=== PATIENT | female | born 1940 | race Caucasian/White ===

== ENCOUNTER 2017-03-24 23:36 | Observation (INO) | payer OTHER ==
--- NOTE | 2017-03-25 00:10 | PDOC ---
History of Present Illness - History of Present Illness Initial Comments: 03/25/17 01:06 The patient is a 76 year old female, with a significant past medical history of htn, diabetes, stents x2, and hepatitis C (Harvoni), who presents to the emergency department with dizziness, vomiting, diarrhea, chills and a BGM of 48 since 9PM today. As per the patients family, they gave the patient food and juice after recording her BGM to be 48 and a BP of 128/60. The patient, however , reports she has continued to feel dizzy. She states that when she closes her eyes she feels the bed moving, denies room spinning. The patient reports 2 episodes of emesis, nonbloody, and one episode of diarrhea, nonbloody, just prior to her ED arrival. She denies abdominal pain. She denies chest pain, shortness of breath, headache. She denies fever and constipation. She denies dysuria, frequency, urgency and hematuria. Allergies: NKDA PCP - Dr. Bridgette Farias <Shazia Clemente - Last Filed: 03/25/17 01:06> - General History Source: Patient Exam Limitations: No Limitations <Genesis Torres - Last Filed: 03/25/17 03:54> - General Chief Complaint: Blood Sugar Problem Stated Complaint: BP LOW/VOMITING Time Seen by Provider: 03/24/17 23:58 Past History <Shazia Clemente - Last Filed: 03/25/17 01:06> - Past Medical History Anemia: Yes Asthma: Yes Cancer: No Cardiac Disorders: Yes (2 cardiac stents) CVA: No COPD: No CHF: No Diabetes: Yes GI Disorders: Yes (GASTRITIS) Disorders: No HTN: Yes Hypercholesterolemia: Yes Liver Disease: Yes (hepatitis c) Suicide Attempt (Hx): No Seizures: No Thyroid Disease: Yes (HYPERTHYROIDISM-LOBE NODULE) - Surgical History Abdominal Surgery: No Appendectomy: Yes (COLONOSCOPY) Cardiac Surgery: Yes (2 stents) Cholecystectomy: No Lung Surgery: Yes (bx sarcoidosis) Neurologic Surgery: No Orthopedic Surgery: No - Immunization History Immunization Up to Date: Yes - Psycho/Social/Smoking Cessation Hx Anxiety: No Suicidal Ideation: No Smoking Status: No Smoking History: Never smoked Have you smoked in the past 12 months: No Number of Cigarettes Smoked Daily: 0 Hx Alcohol Use: No Drug/Substance Use Hx: No Substance Use Type: None Hx Substance Use Treatment: No <Genesis Torres - Last Filed: 03/25/17 03:54> - Past Medical History Allergies/Adverse Reactions: Allergies Allergy/AdvReac Type Severity Reaction Status Date / Time Penicillins Allergy Mild Difficulty Verified 03/24/17 23:55 Breathing Home Medications: Ambulatory Orders Amlodipine Bes/Olmesartan Med [Margarita 10-40 mg Tablet] 1 each PO DAILY 04/14/14 Aspirin [ASA -] 81 mg PO ASDIR 04/14/14 Carvedilol Phosphate [Coreg Cr] 80 mg PO DAILY 04/14/14 Clopidogrel Bisulfate [Plavix -] 75 mg PO ASDIR 04/14/14 Ezetimibe [Zetia] 10 mg PO DAILY 04/14/14 Furosemide [Lasix -] 40 mg PO DAILY 04/14/14 Hydralazine HCl 50 mg PO TID 04/14/14 Ibandronate Sodium [Boniva (Monthly)] 150 mg PO Q30D 04/14/14 Insulin Glargine,Hum.rec.anlog [Lantus Solostar PEN -] 50 units SQ DAILY Multivitamins [Multivit ([facility] Formulary)] 1 tab PO DAILY 04/14/14 Pitavastatin Calcium [Livalo] 2 mg PO DAILY 04/14/14 Insulin Regular, Human [Humulin R -] 5 units SQ AC 06/06/14 Acetaminophen W/ Codeine #3 [Tylenol # 3 -] 1 combo PO Q4H PRN #14 tablet MDD 4 02/15/16 Dexlansoprazole [Dexilant -] 60 mg PO DAILY 02/15/16 Icosapent Ethyl [Vascepa] 1 gm PO BID 02/15/16 Ranolazine [Ranexa -] 500 mg PO BID 02/15/16 Albuterol Sulfate [Proair Respiclick] 90 mcg IH PRN PRN 07/05/16 Cholecalciferol (Vitamin D3) [Vitamin D3 -] 1,000 unit PO DAILY 07/05/16 Folic Acid 1 mg PO DAILY 07/05/16 Nasonex 50 mcg IN DAILY 07/05/16 Vitamin B Complex 1 each PO DAILY 07/05/16 Hydrocodone/Acetaminophen [Hydrocodon-Acetaminoph 7.5-325] 1 each PO Q6H #40 tablet MDD 4 07/06/16 Review of Systems - Review of Systems Able to Perform ROS?: Yes Comments:: 03/25/17 01:06 CONSTITUTIONAL: (+) chills, Absent: fever, no fatigue EYES: Absent: visual changes ENT: Absent: ear pain, no sore throat CARDIOVASCULAR: Absent: chest pain, no palpitations RESPIRATORY: Absent: cough, no SOB GASTROINTESTINAL: (+) nausea, vomiting, diarrhea. Absent: abdominal pain, no constipation, GENITOURINARY: Absent: dysuria, no frequency, no hematuria MUSCULOSKELETAL: Absent: back pain, no arthralgia, no myalgia SKIN: Absent: rash NEURO: (+) dizziness. Absent: headache <Shazia Clemente - Last Filed: 03/25/17 01:06> *Physical Exam - Vital Signs Last Vital Signs Temp Pulse Resp BP Pulse Ox 97 F L 65 18 142/43 99 03/24/17 23:53 03/24/17 23:53 03/24/17 23:53 03/24/17 23:53 03/24/17 23:53 - Physical Exam Comments: 03/25/17 01:08 GENERAL: The patient is in no acute distress. HEAD: Normal with no signs of trauma. EYES: PERRLA, EOMI, sclera anicteric, conjunctiva clear. ENT: Ears normal, nares patent, oropharynx clear without exudates. Moist mucous membranes. NECK: Normal range of motion, supple without lymphadenopathy, JVD, or masses. LUNGS: Breath sounds equal, clear to auscultation bilaterally. No wheezes, and no crackles. HEART:Regular rate and rhythm, normal S1 and S2 without murmur, rub or gallop. ABDOMEN: Soft, nontender, normoactive bowel sounds. No guarding, no rebound. No masses palpable. EXTREMITIES: Normal range of motion, no edema. No clubbing or cyanosis. No erythema, or tenderness. NEUROLOGICAL: Cranial nerves II through XII grossly intact. Normal speech. No focal neurological deficits. MUSCULOSKELETAL: Back non-tender to palpation, no CVA tenderness SKIN: Warm, Dry, normal turgor, no rashes or lesions noted. <Shazia Clemente - Last Filed: 03/25/17 01:06> - Vital Signs Last Vital Signs Temp Pulse Resp BP Pulse Ox 97 F L 65 18 142/43 99 03/24/17 23:53 03/24/17 23:53 03/24/17 23:53 03/24/17 23:53 03/24/17 23:53 <Genesis Torres - Last Filed: 03/25/17 03:54> Heart Score/ECG Review #1 ECG reviewed & interpreted by me at: 03:01 03/25/17 03:01 Twelve-lead EKG was performed and reviewed by me. There is normal sinus rhythm with a normal rate of 70 bpm. The axis is normal. The intervals are normal. There are no ST or T wave abnormalities. <Genesis Torres - Last Filed: 03/25/17 03:54> ED Treatment Course - LABORATORY CBC & Chemistry Diagram: 03/25/17 00:55 03/25/17 00:55 <Shazia Clemente - Last Filed: 03/25/17 01:06> - LABORATORY CBC & Chemistry Diagram: 03/25/17 00:55 03/25/17 00:55 <Genesis Torres - Last Filed: 03/25/17 03:54> Medical Decision Making - Medical Decision Making 03/25/17 00:10 A portion of this note was documented by scribe services under my direction. I have reviewed the details of the note, within reason, and agree with the documentation with the following case summary and management plan written by me. Nursing documentation reviewed and incorporated into medical decision making 76 yo F h/o HTN, HLD, CAD Pt presents to the ER with a complaint of dizziness No chest pain When symptoms began pt blood glucose was 46 Pt had persistent symptoms BP 126/86 03/25/17 02:17 Laboratory Tests 10/29/15 03/25/17 03/25/17 06:00 00:55 00:55 WBC 6.6 6.5 Hgb 10.2 L 10.4 L Hct 32.0 L 31.9 L Plt Count 257 250 Sodium 129 L Potassium 4.7 Chloride 94 L BUN 33 H Creatine Kinase Troponin I Urine Ketones Urine Blood Ur Leukocyte Esterase Acetone, Qual Negative L 03/25/17 03/25/17 00:55 01:52 WBC Hgb Hct Plt Count Sodium Potassium Chloride BUN Creatine Kinase 117 Troponin I < 0.02 Urine Ketones Negative Urine Blood Negative Ur Leukocyte Esterase Negative Acetone, Qual Head CT Supervisor [place] Department: ([email or web address]) Begin of Report Content Referring Physician: Genesis Torres Patient Name: Karina Murphy This is a preliminary report by imaging division order analyst Exam: Noncontrast CT head Images: 141 Clinical indication: Dizziness. Reformatted coronal and sagittal images were provided. Findings: Multiple axial images were obtained of the brain without contrast. There is no mass-effect, midline shift or hemorrhage. There is no intra-axial or extra-axial fluid collection. Mild atrophic involutional changes are noted. The visualized portions of the paranasal sinuses are clear. The middle ear cavities and mastoids are clear. Impression: No mass effect or intracranial hemorrhage. 03/25/17 03:[address] Farias He states patient should be admitted to Dr Murphy Will place on Med Surg Clinical Impression: dizziness <Genesis Torres - Last Filed: 03/25/17 03:54> *DC/Admit/Observation/Transfer - Attestations Scribe Attestion: 03/25/17 01:08 Documentation prepared by Shazia Clemente, acting as medical apparatus model maker for Genesis Torres MD <Shazia Clemente - Last Filed: 03/25/17 01:06> - Discharge Dispostion Admit: Yes <Genesis Torres - Last Filed: 03/25/17 03:54> Diagnosis at time of Disposition: Dizziness, Weakness, Hyponatremia - Discharge Dispostion Condition at time of disposition: Stable
[2017-03-25] MEDS ORDERED: ONDANSETRON 4 MG/2 ML VIAL IVPUSH ONE (00:48)
[2017-03-25] MEDS ORDERED: SODIUM CHLORIDE 1,000 ML IV STA (00:48)
[2017-03-25 01:03] LABS: BASOPHIL 0.9 % (0-2.0); EOSINOPHIL 0.2 % (0-4.5); MCH 25.6 pg (25.7-33.7); MCHC 32.5 g/dl (32.0-36.0); MEAN CELL VOLUME 78.7 fl (80-96); MEAN PLT VOLUME 7.1 fl (7.5-11.1); NEUTROPHILS 63.9 % (42.8-82.8); PLATELET COUNT 250 K/MM3 (134-434); RDW 14.3 % (11.6-15.6); WHITE BLOOD COUNT 6.5 K/mm3 (4.0-10.0)
[2017-03-25 01:26] LABS: ALBUMIN 3.8 g/dl (3.4-5.0); ALK PHOS 47 U/L (45-117); ANION GAP 8 (8-16); BILIRUBIN,TOTAL 0.2 mg/dL (0.2-1.0); CALCIUM 8.8 mg/dL (8.5-10.1); CO2 27 mmol/L (21-32); CREATININE 1.2 mg/dL (0.55-1.02); GLUCOSE,RANDOM 216 mg/dL (74-106); SGOT/AST 22 U/L (15-37); SGPT/ALT 28 U/L (12-78); TOT PROT 7.3 g/dl (6.4-8.2)
[2017-03-25 01:30] LABS: TROPONIN I < 0.02 ng/ml (0.00-0.05)
[2017-03-25 01:34] LABS: ACETONE SERUM NEGATIVE (NEGATIVE)
[2017-03-25] MEDS ORDERED: ONDANSETRON 4 MG/2 ML VIAL ONE (01:57)
[2017-03-25 02:02] LABS: URINE APPEARANCE CLEAR; URINE BILIRUBIN NEGATIVE (NEGATIVE); URINE BLOOD NEGATIVE (NEGATIVE); URINE COLOR YELLOW; URINE GLUCOSE (UA) NEGATIVE (NEGATIVE); URINE KETONE NEGATIVE (NEGATIVE); URINE LEUK ESTERASE NEGATIVE (NEGATIVE); URINE NITRITE NEGATIVE (NEGATIVE); URINE PROTEIN NEGATIVE (NEGATIVE); URINE UROBILINOGEN NEGATIVE mg/dL (0.2-1.0)
[2017-03-25] MEDS ORDERED: CARVEDILOL PHOSPHATE 80 MG PO SCH (10:00)
[2017-03-25] MEDS ORDERED: RANOLAZINE E.R. 1,000 MG TABLET (FP) PO SCH (10:00)
[2017-03-25] MEDS ORDERED: PATIENT'S OWN MEDICATION (NON-FORMULARY) (Dexlansoprazole [Dexilant] 60 MG) PO SCH (10:00)
[2017-03-25] MEDS ORDERED: PATIENT'S OWN MEDICATION (NON-FORMULARY) (Icosapent Ethyl [Vascepa] 1 GM) PO SCH (10:00)
[2017-03-25] MEDS: hydrALAZINE HCL 50 MG TABLET (FP) PO SCH (10:53)
[2017-03-25] MEDS: FOLIC ACID 1 MG TABLET (FP) PO SCH (10:53)
[2017-03-25] MEDS: VALSARTAN 80 MG TABLET (UD) PO SCH (10:53)
[2017-03-25] MEDS: PANTOPRAZOLE 40 MG TABLET (FP) PO SCH (10:54)
[2017-03-25] MEDS: FUROSEMIDE 40 MG TABLET (FP) PO SCH (10:54)
[2017-03-25] MEDS: CLOPIDOGREL BISULFATE 75 MG TABLET (FP) PO SCH (10:54)
[2017-03-25] MEDS: amLODIPine BESYLATE 10 MG TABLET (FP) PO SCH (10:54)
[2017-03-25] MEDS: CARVEDILOL PHOSPHATE CR 40 MG CAPSULE (FP) PO SCH (10:56)
[2017-03-25] MEDS: EZETIMIBE 10 MG TABLET (FP) PO SCH (10:57)
[2017-03-25] MEDS: INSULIN SLIDING SCALE (NOVOLOG) 1 VIAL SQ SCH ×2 (11:32→16:54)
[2017-03-25] MEDS: ATORVASTATIN CA 10 MG TABLET (FP) PO SCH (11:34)
[2017-03-25 11:53] VITALS: BMI 33.5
[2017-03-25] MEDS ORDERED: SIMETHICONE 80 MG TAB.CHEW (FP) PO PRN (12:48)
--- NOTE | 2017-03-25 13:30 | EKG ---
Test Reason : Blood Pressure : / mmHG Vent. Rate : 070 BPM Atrial Rate : 070 BPM P-R Int : 152 ms QRS Dur : 082 ms QT Int : 440 ms P-R-T Axes : 050 005 034 degrees QTc Int : 475 ms POOR DATA QUALITY, INTERPRETATION MAY BE ADVERSELY AFFECTED NORMAL SINUS RHYTHM NORMAL ECG WHEN COMPARED WITH ECG OF 29-OCT-2015 00:14, NO SIGNIFICANT CHANGE WAS FOUND Confirmed by CHRISTINA MACHADO MD ([id number]) on 03/25/2017 1:30:20 PM Referred By: Confirmed By:CHRISTINA MACHADO MD
[2017-03-25 13:44] LABS: ALBUMIN 3.7 g/dl (3.4-5.0); ANION GAP 9 (8-16); CALCIUM 9.2 mg/dL (8.5-10.1); CO2 26 mmol/L (21-32); CREATININE 1.1 mg/dL (0.55-1.02); GLUCOSE,RANDOM 207 mg/dL (74-106); SGOT/AST 20 U/L (15-37); SGPT/ALT 28 U/L (12-78)
[2017-03-25 13:48] LABS: ALK PHOS 36 U/L (45-117); BILIRUBIN,TOTAL 0.4 mg/dL (0.2-1.0); TOT PROT 7.3 g/dl (6.4-8.2); TROPONIN I < 0.02 ng/ml (0.00-0.05)
--- NOTE | 2017-03-25 15:02 | CON.CARD ---
Consult Consult Specialty:: Cardiology - History of Present Illness Chief Complaint: Low blood sugar. dizziness History of Present Illness: This is a 76 year old female with a PMH of HTN, DM, known CAD with 2 past stents (about 20 years ago and 5 yearsz ago), and Hep C. She presented to the [facility] ED with hypoglycemia (BGL 48), dizziness, nausea, and vomiting. No chest pain, SOB, or palpitations. She had a recent cardiac evaluation with Dr. Cam Dinh including a stress test, echocardiogram, and carotid Doppler exam, but does not know the results. Seen in the ED and is comfortable and hemodynamically stable. EKG revealed NSR with no acute changes. - Past Medical History Cardio/Vascular: Yes: CAD, HTN Pulmonary: Yes: Other (Sarcoidosis) Hepatobiliary: Yes: Hepatitis C Endocrine: Yes: Diabetes Mellitus - Alcohol/Substance Use Hx Alcohol Use: No - Smoking History Smoking history: Never smoked Have you smoked in the past 12 months: No Aproximately how many cigarettes per day: 0 - Social History ADL: Independent History of Recent Travel: No Home Medications - Allergies Allergies/Adverse Reactions: Allergies Allergy/AdvReac Type Severity Reaction Status Date / Time Penicillins Allergy Mild Difficulty Verified 03/25/17 04:18 Breathing - Home Medications Home Medications: Ambulatory Orders Amlodipine Bes/Olmesartan Med [Margarita 10-40 mg Tablet] 1 each PO DAILY 03/25/17 Carvedilol Phosphate [Coreg Cr -] 80 mg PO DAILY 03/25/17 Cholecalciferol (Vitamin D3) [Vitamin D3 -] 1,000 unit PO DAILY 03/25/17 Clopidogrel Bisulfate [Plavix -] 75 mg PO DAILY 03/25/17 Dexlansoprazole [Dexilant] 60 mg PO DAILY 03/25/17 Ezetimibe [Zetia] 10 mg PO DAILY 03/25/17 Folic Acid 1 mg PO DAILY 03/25/17 Furosemide [Lasix] 40 mg PO DAILY 03/25/17 Hydralazine HCl 50 mg PO TID 03/25/17 Ibandronate Sodium [Boniva] 150 mg PO MONTHLY 03/25/17 Icosapent Ethyl [Vascepa] 2 tab PO BID 03/25/17 Insulin Glargine,Hum.rec.anlog [Lantus Solostar PEN (NF)] 55 units SQ ACBK 03/25 Insulin Regular, Human [Humulin R U-500 Kwikpen] 3 - 5 unit SQ TID 03/25/17 Mometasone Furoate 1 - 2 sprays NS DAILY 03/25/17 Multivitamins [Tab-A-Vit -] 1 tab PO DAILY 03/25/17 Pitavastatin Calcium [Livalo] 2 mg PO DAILY 03/25/17 Ranolazine [Ranexa] 1,000 mg PO Q12H 03/25/17 Vitamin B Complex 1 each PO DAILY 03/25/17 Family Disease History - Family Disease History Family Disease History: Heart Disease: Father Review of Systems Unable to obtain ROS, reason: As per HPI Vital Signs: Vital Signs Temperature 98.3 F 03/25/17 13:36 Pulse Rate 94 H 03/25/17 13:36 Respiratory Rate 20 03/25/17 13:36 Blood Pressure 126/49 03/25/17 13:36 O2 Sat by Pulse Oximetry (%) 98 03/25/17 11:00 Constitutional: Yes: Other (Well appearing and in no distress No JVD Lungs CTA Cor RRR NL S1S2 no MRHG Ab Soft Ex no edema Neuro Grossly nonfocal) - Other Data Labs, Other Data: CBC, BMP 03/25/17 13:14 Troponin, BNP 03/25/17 13:14 Troponin I < 0.02 Troponin, BNP 03/25/17 13:14 Troponin I < 0.02 Assessment/Plan [facility] *LIVE* Amlodipine Bes/Olmesartan Med [Margarita 10-40 mg Tablet] 1 each PO DAILY 04/14/14 Aspirin [ASA -] 81 mg PO ASDIR 04/14/14 Carvedilol Phosphate [Coreg Cr] 80 mg PO DAILY 04/14/14 Clopidogrel Bisulfate [Plavix -] 75 mg PO ASDIR 04/14/14 Ezetimibe [Zetia] 10 mg PO DAILY 04/14/14 Furosemide [Lasix -] 40 mg PO DAILY 04/14/14 Hydralazine HCl 50 mg PO TID 04/14/14 Ibandronate Sodium [Boniva (Monthly)] 150 mg PO Q30D 04/14/14 Insulin Glargine,Hum.rec.anlog [Lantus Solostar PEN -] 50 units SQ DAILY Multivitamins [Multivit ([facility] Formulary)] 1 tab PO DAILY 04/14/14 Pitavastatin Calcium [Livalo] 2 mg PO DAILY 04/14/14 Insulin Regular, Human [Humulin R -] 5 units SQ AC 06/06/14 Acetaminophen W/ Codeine #3 [Tylenol # 3 -] 1 combo PO Q4H PRN #14 tablet MDD 4 02/15/16 Dexlansoprazole [Dexilant -] 60 mg PO DAILY 02/15/16 Icosapent Ethyl [Vascepa] 1 gm PO BID 02/15/16 Ranolazine [Ranexa -] 500 mg PO BID 02/15/16 Albuterol Sulfate [Proair Respiclick] 90 mcg IH PRN PRN 07/05/16 Cholecalciferol (Vitamin D3) [Vitamin D3 -] 1,000 unit PO DAILY 07/05/16 Folic Acid 1 mg PO DAILY 07/05/16 Nasonex 50 mcg IN DAILY 07/05/16 Vitamin B Complex 1 each PO DAILY 07/05/16 Hydrocodone/Acetaminophen [Hydrocodon-Acetaminoph 7.5-325] 1 each PO Q6H #40 tablet MDD 4 07/06/16 Hypoglycemia associated with dizziness, nausea, and vomiting which has resolved. Cardiac Known CAD with past coronary stents. Continue ASA 81 mg daily Also is on Plavix 75 mg daily but I do not see the need for DAPT since her last coronany stent was 5 years ago Continue Ranolazoine 500 mg PO BID Continue current antihypertensive regimen including furosemide 40 mg daily Recent echo/nuk/carotid (within a month) from Dr. Cam Vaughan - try to obtain the results on Sunday. Will follow with you.
[2017-03-25 17:48] LABS: TROPONIN I < 0.02 ng/ml (0.00-0.05)
--- NOTE | 2017-03-25 21:19 | HP ---
Admitting History and Physical - Primary Care Physician PCP: Bridgette Farias I - Admission Chief Complaint: Dizziness History of Present Illness: Ms. Murphy is a very pleasant, 76 yo english speaking female, who presented to [facility] ER with chief complaint of dizziness that started yesterday evening along with vomiting x 2,diarrhea x1 and chills. She is accompanied by her daughter who explains that she was slightly confused during the episode, her daughter checked her blood sugar at the time which was 48, she was given orange juice which brought her blood sugar up to 140. Patent's daughter explains that she has had prior episodes of dizziness but nothing this severe. She says that dizziness is intermittent, is better at the moment and does not feel like the room is spinning. PMH: HTN, hyperlipidemia, diabetes mellitus type 2, cardiac stents x 2 and hepatitis C that was treated with Harvoni 2 years ago, with 100% cure. She denies chest pain, shortness of breath, headache. She denies fever and constipation. She denies dysuria, frequency, urgency and hematuria. History Source: Family Member - Past Medical History Cardiovascular: Yes: CAD, HTN Pulmonary: Yes: Other (Sarcoidosis) Hepatobiliary: Yes: Hepatitis C Endocrine: Yes: Diabetes Mellitus - Smoking History Smoking history: Never smoked Have you smoked in the past 12 months: No Aproximately how many cigarettes per day: 0 - Alcohol/Substance Use Hx Alcohol Use: No - Social History ADL: Independent History of Recent Travel: No Home Medications - Allergies Allergies/Adverse Reactions: Allergies Allergy/AdvReac Type Severity Reaction Status Date / Time Penicillins Allergy Mild Difficulty Verified 03/25/17 04:18 Breathing - Home Medications Home Medications: Ambulatory Orders Amlodipine Bes/Olmesartan Med [Margarita 10-40 mg Tablet] 1 each PO DAILY 03/25/17 Carvedilol Phosphate [Coreg Cr -] 80 mg PO DAILY 03/25/17 Cholecalciferol (Vitamin D3) [Vitamin D3 -] 1,000 unit PO DAILY 03/25/17 Clopidogrel Bisulfate [Plavix -] 75 mg PO DAILY 03/25/17 Dexlansoprazole [Dexilant] 60 mg PO DAILY 03/25/17 Ezetimibe [Zetia] 10 mg PO DAILY 03/25/17 Folic Acid 1 mg PO DAILY 03/25/17 Furosemide [Lasix] 40 mg PO DAILY 03/25/17 Hydralazine HCl 50 mg PO TID 03/25/17 Ibandronate Sodium [Boniva] 150 mg PO MONTHLY 03/25/17 Icosapent Ethyl [Vascepa] 2 tab PO BID 03/25/17 Insulin Glargine,Hum.rec.anlog [Lantus Solostar PEN (NF)] 55 units SQ ACBK 03/25 Insulin Regular, Human [Humulin R U-500 Kwikpen] 3 - 5 unit SQ TID 03/25/17 Mometasone Furoate 1 - 2 sprays NS DAILY 03/25/17 Multivitamins [Tab-A-Vit -] 1 tab PO DAILY 03/25/17 Pitavastatin Calcium [Livalo] 2 mg PO DAILY 03/25/17 Ranolazine [Ranexa] 1,000 mg PO Q12H 03/25/17 Vitamin B Complex 1 each PO DAILY 03/25/17 Family Disease History - Family Disease History Family Disease History: Heart Disease: Father Review of Systems - Review of Systems Constitutional: reports: Malaise Eyes: reports: No Symptoms HENT: reports: No Symptoms Neck: reports: No Symptoms Cardiovascular: reports: No Symptoms Respiratory: reports: No Symptoms Gastrointestinal: reports: Indigestion Genitourinary: reports: No Symptoms Breasts: reports: No Symptoms Reported Musculoskeletal: reports: No Symptoms Integumentary: reports: No Symptoms Neurological: reports: Dizziness Endocrine: reports: No Symptoms Hematology/Lymphatic: reports: No Symptoms Physical Examination Vital Signs: Vital Signs Temperature 98.0 F 03/25/17 16:30 Pulse Rate 78 03/25/17 16:30 Respiratory Rate 18 03/25/17 16:30 Blood Pressure 145/65 03/25/17 16:30 O2 Sat by Pulse Oximetry (%) 98 03/25/17 11:00 Constitutional: Yes: Well Nourished, No Distress, Calm Cardiovascular: Yes: Regular Rate and Rhythm, Murmur (LSB grade II) Respiratory: Yes: Regular Gastrointestinal: Yes: Hyperactive Bowel Sounds Breast(s): Yes: WNL Musculoskeletal: Yes: WNL Extremities: Yes: WNL Edema: No Peripheral Pulses WNL: Yes Neurological: Yes: WNL Psychiatric: Yes: Alert Labs: CBC, BMP 03/25/17 13:14 Imaging - Results Cat Scan: Report Reviewed Problem List - Problems (1) Dizziness Assessment/Plan: -CT head negative -no nystagmus -neurology and cardiology consult Code(s): R42 - DIZZINESS AND GIDDINESS (2) Hyponatremia Assessment/Plan: -cause unknown at this time -could be the cause of dizziness Code(s): E87.1 - HYPO-OSMOLALITY AND HYPONATREMIA (3) Weakness Assessment/Plan: likely secondary to dehydration Code(s): R53.1 - WEAKNESS (4) Diabetes Code(s): E11.9 - TYPE 2 DIABETES MELLITUS WITHOUT COMPLICATIONS Qualifiers: Diabetes mellitus type: type 2 Assessment/Plan -observation -neurology and cardiology consult. -renal consult -repeat labs in AM
[2017-03-25] MEDS: OMEGA-3 ACID ETHYL ESTERS (FATTY-ACIDS) 1 GM CAPSULE (FP) PO SCH (21:54)
[2017-03-25] MEDS: RANOLAZINE E.R. 1,000 MG TABLET (FP) PO SCH (21:54)
[2017-03-26] MEDS: INSULIN SLIDING SCALE (NOVOLOG) 1 VIAL SQ SCH ×3 (06:16→17:22)
[2017-03-26] MEDS: INSULIN DETEMIR 100 UNITS/ML MDV SQ SCH (06:16)
[2017-03-26 07:06] LABS: BASOPHIL 0.7 % (0-2.0); EOSINOPHIL 0.5 % (0-4.5); MCH 25.9 pg (25.7-33.7); MCHC 32.8 g/dl (32.0-36.0); MEAN CELL VOLUME 78.9 fl (80-96); NEUTROPHILS 60.1 % (42.8-82.8); PLATELET COUNT 272 K/MM3 (134-434); RDW 13.8 % (11.6-15.6); WHITE BLOOD COUNT 6.1 K/mm3 (4.0-10.0)
[2017-03-26 07:36] LABS: ALBUMIN 3.6 g/dl (3.4-5.0); ANION GAP 6 (8-16); CALCIUM 9.2 mg/dL (8.5-10.1); CO2 28 mmol/L (21-32); CREATININE 1.1 mg/dL (0.55-1.02); GLUCOSE,RANDOM 111 mg/dL (74-106); SGOT/AST 19 U/L (15-37); SGPT/ALT 26 U/L (12-78)
[2017-03-26 07:40] LABS: ALK PHOS 36 U/L (45-117); BILIRUBIN,TOTAL 0.5 mg/dL (0.2-1.0); FERRITIN 41.545 ng/ml (6.9-282.5); TOT PROT 7.3 g/dl (6.4-8.2)
--- NOTE | 2017-03-26 08:28 | PN ---
Progress Note, Physician History of Present Illness: NO COMPLAINTS THIS AM - Current Medication List Current Medications: Active Medications Amlodipine Besylate (Norvasc -) 10 mg PO DAILY [facility] Last Admin: 03/25/17 10:54 Dose: 10 mg Atorvastatin Calcium (Lipitor -) 10 mg PO DAILY [facility] Last Admin: 03/25/17 11:34 Dose: 10 mg Carvedilol (Coreg Cr -) 80 mg PO DAILY [facility] Last Admin: 03/25/17 10:56 Dose: 80 mg Clopidogrel Bisulfate (Plavix -) 75 mg PO DAILY [facility] Last Admin: 03/25/17 10:54 Dose: 75 mg Ezetimibe (Zetia -) 10 mg PO DAILY [facility] Last Admin: 03/25/17 10:57 Dose: 10 mg Folic Acid (Folic Acid -) 1 mg PO DAILY [facility] Last Admin: 03/25/17 10:53 Dose: 1 mg Furosemide (Lasix -) 40 mg PO DAILY [facility] Last Admin: 03/25/17 10:54 Dose: 40 mg Hydralazine HCl (Apresoline -) 50 mg PO DAILY [facility] Last Admin: 03/25/17 10:53 Dose: 50 mg Insulin Aspart (Novolog Vial Sliding Scale -) 1 vial SQ TIDAC [facility] PRN Reason: Protocol Last Admin: 03/26/17 06:16 Dose: Not Given Insulin Detemir (Levemir Vial) 55 units SQ AM [facility] Last Admin: 03/26/17 06:16 Dose: 55 units [id number] Ethyl Esters (Lovaza -) 2 gm PO BID [facility] Last Admin: 03/25/17 21:54 Dose: Not Given Pantoprazole Sodium (Protonix -) 40 mg PO DAILY [facility] Last Admin: 03/25/17 10:54 Dose: 40 mg Ranolazine (Ranexa -) 1,000 mg PO BID [facility] Last Admin: 03/25/17 21:54 Dose: 1,000 mg Simethicone (Mylicon -) 80 mg PO QID PRN PRN Reason: GAS Last Admin: 03/25/17 15:31 Dose: 80 mg Valsartan (Diovan -) 80 mg PO DAILY [facility] Last Admin: 03/25/17 10:53 Dose: 80 mg - Objective Vital Signs: Vital Signs Temperature 97.8 F 03/26/17 02:21 Pulse Rate 77 03/26/17 06:00 Respiratory Rate 20 03/26/17 06:00 Blood Pressure 132/54 03/26/17 06:00 O2 Sat by Pulse Oximetry (%) 98 03/25/17 11:00 Cardiovascular: Yes: Regular Rate and Rhythm Respiratory: Yes: Regular, CTA Bilaterally Gastrointestinal: Yes: Normal Bowel Sounds, Soft. No: Tenderness Labs: CBC, BMP 03/26/17 05:35 Assessment/Plan - Problems (1) Dizziness Assessment/Plan: -CT head negative -no nystagmus -neurology and cardiology consult Code(s): R42 - DIZZINESS AND GIDDINESS (2) Hyponatremia Assessment/Plan: -cause unknown at this time -na --outpatient monitoring Code(s): E87.1 - HYPO-OSMOLALITY AND HYPONATREMIA (3) Weakness Assessment/Plan: likely secondary to dehydration resolved-monitor Code(s): R53.1 - WEAKNESS (4) Diabetes no further hypoglycemia bgm insulin Code(s): E11.9 - TYPE 2 DIABETES MELLITUS WITHOUT COMPLICATIONS Qualifiers: Diabetes mellitus type: type 2 (5) htn stable--some flutation monitor on current meds---hydralazine adjusted Assessment/Plan -observation -neurology and cardiology consult -renal consult -repeat labs noted--na
[2017-03-26] MEDS ORDERED: PT OWN MED DRAWER 7, Y5N ONE ×2 (09:28→22:14)
--- NOTE | 2017-03-26 09:53 | PN ---
Progress Note, Physician Chief Complaint: Events noted Cardiology consultation seen by Dr. Cory Loera Mrs. Murphy is a patient of Dr. Cam Dinh Not in distress this AM History of Present Illness: Patient was seen and examined. Awake and alert. Chart was reviewed Office records were obtained and reviewed Denies chest pain. SOB or palpitations. Denies dizziness, nausea or vomiting this am. Patient was seen by Dr. Dinh in the office on February 01, 2017 Nuclear myocardial perfusion imaging (February 2017) revealed small to moderate anterior defect c/w soft tissue attenuation with zone of mild ischemia. LVEF 84 % at rest and 85% post Regadenoson Echocardiography (February 2017) revealed normal LV systolic function, mild AR, mild to moderate MR, mild TR, mild SD and mild pulmonary HTN Carotid Doppler (March 2017) no hemodynamically significant stenosis - Current Medication List Current Medications: Active Medications Amlodipine Besylate (Norvasc -) 10 mg PO DAILY [facility] Last Admin: 03/25/17 10:54 Dose: 10 mg Atorvastatin Calcium (Lipitor -) 10 mg PO DAILY [facility] Last Admin: 03/25/17 11:34 Dose: 10 mg Carvedilol (Coreg Cr -) 80 mg PO DAILY [facility] Last Admin: 03/25/17 10:56 Dose: 80 mg Clopidogrel Bisulfate (Plavix -) 75 mg PO DAILY [facility] Last Admin: 03/25/17 10:54 Dose: 75 mg Ezetimibe (Zetia -) 10 mg PO DAILY [facility] Last Admin: 03/25/17 10:57 Dose: 10 mg Folic Acid (Folic Acid -) 1 mg PO DAILY [facility] Last Admin: 03/25/17 10:53 Dose: 1 mg Furosemide (Lasix -) 40 mg PO DAILY [facility] Last Admin: 03/25/17 10:54 Dose: 40 mg Hydralazine HCl (Apresoline -) 50 mg PO DAILY [facility] Last Admin: 03/25/17 10:53 Dose: 50 mg Insulin Aspart (Novolog Vial Sliding Scale -) 1 vial SQ TIDAC [facility] PRN Reason: Protocol Last Admin: 03/26/17 06:16 Dose: Not Given Insulin Detemir (Levemir Vial) 55 units SQ AM [facility] Last Admin: 03/26/17 06:16 Dose: 55 units [id number] Ethyl Esters (Lovaza -) 2 gm PO BID [facility] Last Admin: 03/25/17 21:54 Dose: Not Given Pantoprazole Sodium (Protonix -) 40 mg PO DAILY [facility] Last Admin: 03/25/17 10:54 Dose: 40 mg Ranolazine (Ranexa -) 1,000 mg PO BID [facility] Last Admin: 03/25/17 21:54 Dose: 1,000 mg Simethicone (Mylicon -) 80 mg PO QID PRN PRN Reason: GAS Last Admin: 03/25/17 15:31 Dose: 80 mg Valsartan (Diovan -) 80 mg PO DAILY [facility] Last Admin: 03/25/17 10:53 Dose: 80 mg - Objective Vital Signs: Vital Signs Temperature 97.8 F 03/26/17 02:21 Pulse Rate 77 03/26/17 06:00 Respiratory Rate 20 03/26/17 06:00 Blood Pressure 132/54 03/26/17 06:00 O2 Sat by Pulse Oximetry (%) 98 03/25/17 11:00 Neck: Yes: Supple Cardiovascular: Yes: Regular Rate and Rhythm, Murmur (Soft SM LSB and apex), S1 , S2 Respiratory: Yes: CTA Bilaterally Gastrointestinal: Yes: Normal Bowel Sounds, Soft. No: Tenderness Edema: No Additional Findings/Remarks: Review of System HEENT: No headache, photophobia, blurring of vision CARD: No chest pain, palpitations, SOB RESP: No cough, sputum production, (-) hemoptysis ABD: (+) nausea, vomiting, denies: diarrhea, abdominal pain, melena, hematemesis MUSC: No joint pains UROL: No urinary symptoms NEURO: No seizure, syncope (+) dizziness Labs: CBC, BMP 03/26/17 05:35 03/26/17 05:35 Laboratory Results - last 24 hr 03/25/17 03/25/17 03/25/17 07:19 11:31 13:14 WBC RBC Hgb Hct MCV MCH MCHC RDW Plt Count MPV Neutrophils % Lymphocytes % Monocytes % Eosinophils % Basophils % Sodium 131 L Potassium 5.4 H Chloride 96 L Carbon Dioxide 26 Anion Gap 9 BUN 23 H D Creatinine 1.1 H Creat Clearance w eGFR 48.16 POC Glucometer 152.74519 141.16742 Random Glucose 207 H Calcium 9.2 Ferritin Total Bilirubin 0.4 D AST 20 ALT 28 Alkaline Phosphatase 36 L D Creatine Kinase 100 Troponin I < 0.02 Total Protein 7.3 Albumin 3.7 03/25/17 03/25/17 03/26/17 16:53 17:00 05:35 WBC RBC Hgb Hct MCV MCH MCHC RDW Plt Count MPV Neutrophils % Lymphocytes % Monocytes % Eosinophils % Basophils % Sodium 133 L Potassium 5.1 Chloride 99 Carbon Dioxide 28 Anion Gap 6 L BUN 22 H Creatinine 1.1 H Creat Clearance w eGFR 48.16 POC Glucometer 164 Random Glucose 111 H D Calcium 9.2 Ferritin 41.545 Total Bilirubin 0.5 D AST 19 ALT 26 Alkaline Phosphatase 36 L Creatine Kinase 91 Troponin I < 0.02 Total Protein 7.3 Albumin 3.6 03/26/17 03/26/17 05:35 05:45 WBC 6.1 RBC 4.33 Hgb 11.2 Hct 34.2 MCV 78.9 L MCH 25.9 MCHC 32.8 RDW 13.8 Plt Count 272 MPV 7.0 L Neutrophils % 60.1 Lymphocytes % 28.2 Monocytes % 10.5 H Eosinophils % 0.5 D Basophils % 0.7 Sodium Potassium Chloride Carbon Dioxide Anion Gap BUN Creatinine Creat Clearance w eGFR POC Glucometer 108 Random Glucose Calcium Ferritin Total Bilirubin AST ALT Alkaline Phosphatase Creatine Kinase Troponin I Total Protein Albumin - ....Imaging Chest X-ray: Report Reviewed (Unremarkable) Problem List - Problems (1) Dizziness Code(s): R42 - DIZZINESS AND GIDDINESS (2) Hyponatremia Code(s): E87.1 - HYPO-OSMOLALITY AND HYPONATREMIA (3) Weakness Code(s): R53.1 - WEAKNESS (4) CAD (coronary artery disease) Code(s): I25.10 - ATHSCL HEART DISEASE OF [place] CORONARY ARTERY W/O ANG PCTRS (5) CKD (chronic kidney disease) Code(s): N18.9 - CHRONIC KIDNEY DISEASE, UNSPECIFIED (6) Diabetes Code(s): E11.9 - TYPE 2 DIABETES MELLITUS WITHOUT COMPLICATIONS Qualifiers: Diabetes mellitus type: type 2 (7) HTN (hypertension) Code(s): I10 - ESSENTIAL (PRIMARY) HYPERTENSION (8) Hyperlipidemia Code(s): E78.5 - HYPERLIPIDEMIA, UNSPECIFIED Assessment/Plan 1. Hypoglycemia associated with symptoms of dizziness, nausea and vomiting 2. History of CAD status post PCI/REEMA (1997 BMS to RCA, 2009 REEMA to LAD), angina pectoris 3. Hypertension 4. Type 2 (Insulin dependent) diabetes mellitus 5. Hypercholesterolemia 6. Diastolic dysfunction with class 0-1 NYHA classification LV failure 7. Mitral valve regurgitation 8. Pulmonary sarcoidosis 9. History of hepatits C 10. CKD 11. DJD 12. Anemia PLAN: 1. Continue Carvedilol and Margarita or equivalent, as tolerated. Monitor electrolytes and renal function 2. Continue Hydralazine 3. Continue Ranexa 4. Statin - currently on Atorvastatin, but patient has been on Livalo. Continue Zetia. 5. Continue ASA +/- Plavix 6. Continue diuretics - PO Lasix 7. Continue Vascepa - but can be given as outpatient. 8. Office records are in the chart for review - continue current medical therapy. Monitor for hypoglycemia and adjust diabetes regimen accordingly. Further plans are to follow Humphrey Ramos MD
[2017-03-26] MEDS: CARVEDILOL PHOSPHATE CR 40 MG CAPSULE (FP) PO SCH (10:06)
[2017-03-26] MEDS: PANTOPRAZOLE 40 MG TABLET (FP) PO SCH (10:07)
[2017-03-26] MEDS: hydrALAZINE HCL 50 MG TABLET (FP) PO SCH (10:07)
[2017-03-26] MEDS: OMEGA-3 ACID ETHYL ESTERS (FATTY-ACIDS) 1 GM CAPSULE (FP) PO SCH ×2 (10:07→22:18)
[2017-03-26] MEDS: RANOLAZINE E.R. 1,000 MG TABLET (FP) PO SCH ×2 (10:07→22:17)
[2017-03-26] MEDS: CLOPIDOGREL BISULFATE 75 MG TABLET (FP) PO SCH (10:08)
[2017-03-26] MEDS: FUROSEMIDE 40 MG TABLET (FP) PO SCH (10:08)
[2017-03-26] MEDS: amLODIPine BESYLATE 10 MG TABLET (FP) PO SCH (10:09)
[2017-03-26] MEDS: VALSARTAN 80 MG TABLET (UD) PO SCH (10:09)
[2017-03-26] MEDS: FOLIC ACID 1 MG TABLET (FP) PO SCH (10:09)
--- NOTE | 2017-03-26 10:58 | CON.NEP ---
Consult Consult Specialty:: Nephrology (Low/Parvez) Referred by:: Dr. Winn Reason for Consultation:: CHRISTIANO/CKD/Hyponatremia/Hyperkalemia - History of Present Illness Chief Complaint: N/V, Hypoglycemia History of Present Illness: This is a 76 year old woman with PMhx of Hepatitis C on Harvoni, CAD, Hypertension, DM on Insulin who presented with the ED with complaints of N/V and Hypoglycemia with Cr of 1.1, K of 5.4 and Na of 129. Pt now reports feeling better and is no longer having nausea, ate breakfast this am. Denies any history of CKD, including kidney stones and recurrent UTI. Pt is on Lasix at home. Pt s/p IVF on admission. - History Source History Provided By: Patient, Family Member Limitations to Obtaining History: Language Barrier - Past Medical History Cardio/Vascular: Yes: CAD, HTN Pulmonary: Yes: Other (Sarcoidosis) Hepatobiliary: Yes: Hepatitis C Endocrine: Yes: Diabetes Mellitus - Alcohol/Substance Use Hx Alcohol Use: No - Smoking History Smoking history: Never smoked Have you smoked in the past 12 months: No Aproximately how many cigarettes per day: 0 - Social History ADL: Independent History of Recent Travel: No Home Medications - Allergies Allergies/Adverse Reactions: Allergies Allergy/AdvReac Type Severity Reaction Status Date / Time Penicillins Allergy Mild Difficulty Verified 03/25/17 04:18 Breathing - Home Medications Home Medications: Ambulatory Orders Amlodipine Bes/Olmesartan Med [Margarita 10-40 mg Tablet] 1 each PO DAILY 03/25/17 Carvedilol Phosphate [Coreg Cr -] 80 mg PO DAILY 03/25/17 Cholecalciferol (Vitamin D3) [Vitamin D3 -] 1,000 unit PO DAILY 03/25/17 Clopidogrel Bisulfate [Plavix -] 75 mg PO DAILY 03/25/17 Dexlansoprazole [Dexilant] 60 mg PO DAILY 03/25/17 Ezetimibe [Zetia] 10 mg PO DAILY 03/25/17 Folic Acid 1 mg PO DAILY 03/25/17 Furosemide [Lasix] 40 mg PO DAILY 03/25/17 Hydralazine HCl 50 mg PO TID 03/25/17 Ibandronate Sodium [Boniva] 150 mg PO MONTHLY 03/25/17 Icosapent Ethyl [Vascepa] 2 tab PO BID 03/25/17 Insulin Glargine,Hum.rec.anlog [Lantus Solostar PEN (NF)] 55 units SQ ACBK 03/25 Insulin Regular, Human [Humulin R U-500 Kwikpen] 3 - 5 unit SQ TID 03/25/17 Mometasone Furoate 1 - 2 sprays NS DAILY 03/25/17 Multivitamins [Tab-A-Vit -] 1 tab PO DAILY 03/25/17 Pitavastatin Calcium [Livalo] 2 mg PO DAILY 03/25/17 Ranolazine [Ranexa] 1,000 mg PO Q12H 03/25/17 Vitamin B Complex 1 each PO DAILY 03/25/17 Family Disease History - Family Disease History Family Disease History: Heart Disease: Father Review of Systems - Review of Systems Constitutional: denies: Chills, Diaphoresis, Fever, Lethargy, Loss of Appetite Eyes: reports: No Symptoms HENT: reports: No Symptoms Neck: reports: No Symptoms Cardiovascular: denies: Chest Pain, Edema, Palpitations, Shortness of Breath Respiratory: denies: Cough, Exercise Intolerance, Hemoptysis, Orthopnea, SOB, SOB on Exertion Gastrointestinal: denies: Abdominal Pain, Constipation, Diarrhea, Dysphagia, Nausea, Vomiting Genitourinary: reports: No Symptoms Musculoskeletal: reports: No Symptoms Integumentary: reports: No Symptoms Neurological: reports: No Symptoms Nephrology Consult - Height Height: 5 ft 3 in - Weight Weight: 189 lb - BMI Body Mass Index (BMI): 33.5 - Lab Results CBC,BMP: CBC, BMP 03/26/17 05:35 03/26/17 05:35 Anion Gap: Anion Gap Anion Gap 6 (8-16) L 03/26/17 05:35 - Imaging Chest X-ray: Report Reviewed - Physical Examination Vital Signs: Vital Signs Temperature 97.8 F 03/26/17 02:21 Pulse Rate 77 03/26/17 06:00 Respiratory Rate 20 03/26/17 06:00 Blood Pressure 132/54 03/26/17 06:00 O2 Sat by Pulse Oximetry (%) 98 03/25/17 11:00 Constitutional: Yes: No Distress, Calm Eyes: Yes: Conjunctiva Clear HENT: Yes: Atraumatic, Normocephalic Neck: Yes: Supple, Trachea Midline Cardiovascular: Yes: Regular Rate and Rhythm, S1, S2. No: Murmur, Rub Respiratory: Yes: Regular, CTA Bilaterally. No: On Nasal O2, Rales, Rhonchi, SOB Gastrointestinal: Yes: Normal Bowel Sounds, Soft, Abdomen, Obese. No: Tenderness, Tenderness, Rebound Renal/: No: Bladder Distention, CVA Tenderness - Left, CVA Tenderness - Right , Duffy Present Edema: Yes Edema: LLE: Trace, RLE: Trace Neurological: Yes: Alert, Oriented, Cran Nerves II-XII Intact Problem List - Problems (1) Hyponatremia Code(s): E87.1 - HYPO-OSMOLALITY AND HYPONATREMIA (2) CHRISTIANO (acute kidney injury) Code(s): N17.9 - ACUTE KIDNEY FAILURE, UNSPECIFIED (3) CAD (coronary artery disease) Code(s): I25.10 - ATHSCL HEART DISEASE OF [place] CORONARY ARTERY W/O ANG PCTRS (4) Diabetes Code(s): E11.9 - TYPE 2 DIABETES MELLITUS WITHOUT COMPLICATIONS Qualifiers: Diabetes mellitus type: type 2 (5) HTN (hypertension) Code(s): I10 - ESSENTIAL (PRIMARY) HYPERTENSION (6) Hypoglycemia Code(s): E16.2 - HYPOGLYCEMIA, UNSPECIFIED Assessment/Plan 76 year old woman with PMhx of Hepatitis C on Harvoni, CAD, Hypertension, DM on Insulin who presented with the ED with complaints of N/V and Hypoglycemia with Cr of 1.1, K of 5.4 and Na of 129. #Hyponatremia Etiology likkely hypovolemic hyponatremia in setting of N/V and diuretics Na is improved no indication for 3% saline Trend Na Q24hrs #Hyperkalemia in setting of CKD and N/V improved today low K diet for now Trend daily on Diovan (? home med) #CKD Stage 3 Cr 1.1 in 2013 Ua w/o protein or sediment Check UPCR Trend BUN/cr daily on ARB and Lasix #Nausea/Vomiting/Hypoglycemia improved now oral diet as tolerated Insulin as per primary #Hypertension continue Diovan/Lasix/Coreg/Hydralazine Goal BP < 140/90 #Hepatitis C continue management as per Primary Thank you Davidson Hannon DO
[2017-03-26] MEDS: EZETIMIBE 10 MG TABLET (FP) PO SCH (16:37)
[2017-03-26] MEDS: ATORVASTATIN CA 10 MG TABLET (FP) PO SCH (16:37)
--- NOTE | 2017-03-26 20:23 | CON.NEURO ---
Consult - History of Present Illness History of Present Illness: 76 yo woman, p/w with chief complaint of dizziness that started yesterday evening along with vomiting x 2,diarrhea x1 and chills. She is accompanied by her daughter who explains that she was slightly confused during the episode, her daughter checked her blood sugar at the time which was 48, she was given orange juice which brought her blood sugar up to 140. Patent's daughter explains that she has had prior episodes of dizziness but nothing this severe. She says that dizziness is intermittent, is better at the moment and does not feel like the room is spinning. feels better today, no RAMIREZ, no associated dysarthria, focal weakness. CT HD to my eye: no acute pathology (dictation incorrect, chxy results) . - Past Medical History Cardio/Vascular: Yes: CAD, HTN Pulmonary: Yes: Other (Sarcoidosis) Hepatobiliary: Yes: Hepatitis C Endocrine: Yes: Diabetes Mellitus - Alcohol/Substance Use Hx Alcohol Use: No - Smoking History Smoking history: Never smoked Have you smoked in the past 12 months: No Aproximately how many cigarettes per day: 0 - Social History ADL: Independent History of Recent Travel: No Home Medications - Allergies Allergies/Adverse Reactions: Allergies Allergy/AdvReac Type Severity Reaction Status Date / Time Penicillins Allergy Mild Difficulty Verified 03/25/17 04:18 Breathing - Home Medications Home Medications: Ambulatory Orders Amlodipine Bes/Olmesartan Med [Margarita 10-40 mg Tablet] 1 each PO DAILY 03/25/17 Carvedilol Phosphate [Coreg Cr -] 80 mg PO DAILY 03/25/17 Cholecalciferol (Vitamin D3) [Vitamin D3 -] 1,000 unit PO DAILY 03/25/17 Clopidogrel Bisulfate [Plavix -] 75 mg PO DAILY 03/25/17 Dexlansoprazole [Dexilant] 60 mg PO DAILY 03/25/17 Ezetimibe [Zetia] 10 mg PO DAILY 03/25/17 Folic Acid 1 mg PO DAILY 03/25/17 Furosemide [Lasix] 40 mg PO DAILY 03/25/17 Hydralazine HCl 50 mg PO TID 03/25/17 Ibandronate Sodium [Boniva] 150 mg PO MONTHLY 03/25/17 Icosapent Ethyl [Vascepa] 2 tab PO BID 03/25/17 Insulin Glargine,Hum.rec.anlog [Lantus Solostar PEN (NF)] 55 units SQ ACBK 03/25 Insulin Regular, Human [Humulin R U-500 Kwikpen] 3 - 5 unit SQ TID 03/25/17 Mometasone Furoate 1 - 2 sprays NS DAILY 03/25/17 Multivitamins [Tab-A-Vit -] 1 tab PO DAILY 03/25/17 Pitavastatin Calcium [Livalo] 2 mg PO DAILY 03/25/17 Ranolazine [Ranexa] 1,000 mg PO Q12H 03/25/17 Vitamin B Complex 1 each PO DAILY 03/25/17 Family Disease History - Family Disease History Family Disease History: Heart Disease: Father Physical Exam-Neuro Vital Signs: Vital Signs Temperature 98.0 F 03/26/17 17:00 Pulse Rate 82 03/26/17 17:00 Respiratory Rate 20 03/26/17 17:00 Blood Pressure 113/57 03/26/17 17:00 O2 Sat by Pulse Oximetry (%) 98 03/26/17 10:00 Constitutional: Yes: Well Nourished, No Distress Neck: Yes: Supple Cardiovascular: Yes: Regular Rate and Rhythm Labs: CBC, BMP 03/26/17 05:35 03/26/17 05:35 - Neuro Exam Level Of Consciousness: Yes: Alert, Oriented to Person (EOMI, VFF, no nystagmus , no facial, motor 5/5, no ataxia, reflexes symmetric) NIH Stroke Scale - Total Score NIH Stroke Scale Score: 0 Problem List - Problems (1) Dizziness Code(s): R42 - DIZZINESS AND GIDDINESS (2) Hypoglycemia Code(s): E16.2 - HYPOGLYCEMIA, UNSPECIFIED Assessment/Plan 76 yo woman, p/w with dizziness -suspect peripheral vertigo, either metabolic vs diabetic vs postional vertigo-doing better. nonfocal exam and CT HD (-) correct electrolytes and can likely be dc in AM . thanks for including us in her care Dr Mota [phone] .
[2017-03-26] MEDS ORDERED: ATORVASTATIN CA 10 MG TABLET (FP) PO SCH (22:00)
[2017-03-26] MEDS ORDERED: EZETIMIBE 10 MG TABLET (FP) PO SCH (22:00)
[2017-03-27 06:06] LABS: SERUM IRON 34 ug/dL (27-139); TOTAL IRON BINDING CAPACITY 313 ug/dL (250-450); UIBC 279 ug/dL (118-369)
[2017-03-27] MEDS: INSULIN SLIDING SCALE (NOVOLOG) 1 VIAL SQ SCH ×2 (06:12→11:39)
[2017-03-27] MEDS: INSULIN DETEMIR 100 UNITS/ML MDV SQ SCH (06:56)
[2017-03-27 08:20] LABS: BASOPHIL 0.9 % (0-2.0); EOSINOPHIL 0.7 % (0-4.5); MCHC 32.8 g/dl (32.0-36.0); MEAN CELL VOLUME 79.1 fl (80-96); MEAN PLT VOLUME 7.2 fl (7.5-11.1); NEUTROPHILS 50.3 % (42.8-82.8); PLATELET COUNT 271 K/MM3 (134-434); RDW 14.1 % (11.6-15.6); WHITE BLOOD COUNT 5.2 K/mm3 (4.0-10.0)
[2017-03-27 08:39] LABS: ALBUMIN 3.6 g/dl (3.4-5.0); CALCIUM 8.7 mg/dL (8.5-10.1)
[2017-03-27 08:45] LABS: ALK PHOS 37 U/L (45-117); ANION GAP 9 (8-16); BILIRUBIN,TOTAL 0.7 mg/dL (0.2-1.0); CO2 30 mmol/L (21-32); CREATININE 1.1 mg/dL (0.55-1.02); GLUCOSE,RANDOM 98 mg/dL (74-106); MAGNESIUM 2.2 mg/dL (1.8-2.4); PHOSPHOROUS 4.1 mg/dL (2.5-4.9); SGOT/AST 18 U/L (15-37); SGPT/ALT 26 U/L (12-78); TOT PROT 7.1 g/dl (6.4-8.2)
[2017-03-27 08:56] VITALS: BP 166/71; PULSE 80; TEMP 98.1
[2017-03-27] MEDS ORDERED: PT OWN MED DRAWER 7, Y5N ONE (09:14)
--- NOTE | 2017-03-27 09:16 | DS ---
Physical Examination Vital Signs: Vital Signs Temperature 98.1 F 03/27/17 08:35 Pulse Rate 80 03/27/17 08:35 Respiratory Rate 20 03/27/17 08:35 Blood Pressure 166/71 03/27/17 08:35 O2 Sat by Pulse Oximetry (%) 97 03/26/17 21:22 Findings/Remarks: no complaints Respiratory: Yes: Regular, CTA Bilaterally Gastrointestinal: Yes: Normal Bowel Sounds, Soft. No: Tenderness Labs: CBC, BMP 03/27/17 05:55 03/27/17 05:55 Discharge Summary Reason For Visit: DIZZINESS Current Active Problems Dizziness (Acute) Hypoglycemia (Acute) Hyponatremia (Acute) Weakness (Acute) Hospital Course: Ms. Murphy is a very pleasant, 76 yo [place]akut speaking female, who presented to [facility] ER with chief complaint of dizziness that started yesterday evening along with vomiting x 2,diarrhea x1 and chills. She is accompanied by her daughter who explains that she was slightly confused during the episode, her daughter checked her blood sugar at the time which was 48, she was given orange juice which brought her blood sugar up to 140. Patent's daughter explains that she has had prior episodes of dizziness but nothing this severe. She says that dizziness is intermittent, is better at the moment and does not feel like the room is spinning. PMH: HTN, hyperlipidemia, diabetes mellitus type 2, cardiac stents x 2 and hepatitis C that was treated with Harvoni 2 years ago, with 100% cure. She denies chest pain, shortness of breath, headache. She denies fever and constipation. She denies dysuria, frequency, urgency and hematuria. History Source: Family Member - Past Medical History Cardiovascular: Yes: CAD, HTN Pulmonary: Yes: Other (Sarcoidosis) Hepatobiliary: Yes: Hepatitis C Endocrine: Yes: Diabetes Mellitus (1) Dizziness Assessment/Plan: -resolved -CT head negative -no nystagmus -neurology and cardiology consult noted Code(s): R42 - DIZZINESS AND GIDDINESS (2) Hyponatremia Assessment/Plan: -cause unknown at this time -na --outpatient monitoring Code(s): E87.1 - HYPO-OSMOLALITY AND HYPONATREMIA (3) Weakness Assessment/Plan: likely secondary to dehydration resolved-monitor Code(s): R53.1 - WEAKNESS (4) Diabetes no further hypoglycemia bgm insulin Code(s): E11.9 - TYPE 2 DIABETES MELLITUS WITHOUT COMPLICATIONS Qualifiers: Diabetes mellitus type: type 2 (5) htn stable--some flutation monitor on current meds---hydralazine adjusted Assessment/Plan -observation -neurology and cardiology consult -renal consult -repeat labs noted--na Condition: Stable - Instructions Diet, Activity, Other Instructions: MONITOR HYDRALAZINE ON 50 MG TWICE A DAY FOLLOW UP WITH DR ESQUIVEL ONE WEEK Referrals: Bridgette Esquivel MD [Primary Care Provider] - 1 Week Disposition: VNS/HOME HEALTH CARE - Home Medications Comprehensive Discharge Medication List: Ambulatory Orders Amlodipine Bes/Olmesartan Med [Margarita 10-40 mg Tablet] 1 each PO DAILY 03/25/17 Carvedilol Phosphate [Coreg Cr -] 80 mg PO DAILY 03/25/17 Cholecalciferol (Vitamin D3) [Vitamin D3 -] 1,000 unit PO DAILY 03/25/17 Clopidogrel Bisulfate [Plavix -] 75 mg PO DAILY 03/25/17 Dexlansoprazole [Dexilant] 60 mg PO DAILY 03/25/17 Ezetimibe [Zetia] 10 mg PO DAILY 03/25/17 Folic Acid 1 mg PO DAILY 03/25/17 Furosemide [Lasix] 40 mg PO DAILY 03/25/17 Ibandronate Sodium [Boniva] 150 mg PO MONTHLY 03/25/17 Icosapent Ethyl [Vascepa] 2 tab PO BID 03/25/17 Insulin Glargine,Hum.rec.anlog [Lantus Solostar PEN -] 55 units SQ ACBK Insulin Regular, Human [Humulin R U-500 Kwikpen] 3 - 5 unit SQ TID 03/25/17 Mometasone Furoate 1 - 2 sprays NS DAILY 03/25/17 Multivitamins [Multivit ([facility] Formulary)] 1 tab PO DAILY 03/25/17 Pitavastatin Calcium [Livalo] 2 mg PO DAILY 03/25/17 Ranolazine [Ranexa] 1,000 mg PO Q12H 03/25/17 Vitamin B Complex 1 each PO DAILY 03/25/17 Hydralazine HCl [Apresoline -] 50 mg PO BID #30 tablet 03/27/17
[2017-03-27] MEDS: CLOPIDOGREL BISULFATE 75 MG TABLET (FP) PO SCH (09:32)
[2017-03-27] MEDS: RANOLAZINE E.R. 1,000 MG TABLET (FP) PO SCH (09:32)
[2017-03-27] MEDS: OMEGA-3 ACID ETHYL ESTERS (FATTY-ACIDS) 1 GM CAPSULE (FP) PO SCH (09:32)
[2017-03-27] MEDS: VALSARTAN 80 MG TABLET (UD) PO SCH (09:33)
[2017-03-27] MEDS: PANTOPRAZOLE 40 MG TABLET (FP) PO SCH (09:33)
[2017-03-27] MEDS: FUROSEMIDE 40 MG TABLET (FP) PO SCH (09:33)
[2017-03-27] MEDS: FOLIC ACID 1 MG TABLET (FP) PO SCH (09:33)
[2017-03-27] MEDS: amLODIPine BESYLATE 10 MG TABLET (FP) PO SCH (09:33)
[2017-03-27] MEDS: hydrALAZINE HCL 50 MG TABLET (FP) PO SCH (09:33)
[2017-03-27] MEDS ORDERED: CARVEDILOL PHOSPHATE CR 20 MG CAPSULE (FP) PO SCH (10:00)
--- NOTE | 2017-03-27 10:53 | PN ---
Progress Note, Physician Chief Complaint: Not in distress History of Present Illness: Patient was seen and examined. Awake and alert. Chart was reviewed Office records are on chart Denies chest pain. SOB or palpitations. Denies dizziness, nausea or vomiting this am. Neuro and Renal inputs noted - Current Medication List Current Medications: Active Medications Amlodipine Besylate (Norvasc -) 10 mg PO DAILY [facility] Last Admin: 03/27/17 09:33 Dose: 10 mg Atorvastatin Calcium (Lipitor -) 10 mg PO HS [facility] Last Admin: 03/26/17 22:18 Dose: 10 mg Carvedilol (Coreg Cr -) 80 mg PO DAILY [facility] Last Admin: 03/27/17 09:34 Dose: 80 mg Clopidogrel Bisulfate (Plavix -) 75 mg PO DAILY [facility] Last Admin: 03/27/17 09:32 Dose: 75 mg Ezetimibe (Zetia -) 10 mg PO HS [facility] Last Admin: 03/26/17 22:18 Dose: 10 mg Folic Acid (Folic Acid -) 1 mg PO DAILY [facility] Last Admin: 03/27/17 09:33 Dose: 1 mg Furosemide (Lasix -) 40 mg PO DAILY [facility] Last Admin: 03/27/17 09:33 Dose: 40 mg Hydralazine HCl (Apresoline -) 50 mg PO DAILY [facility] Last Admin: 03/27/17 09:33 Dose: 50 mg Insulin Aspart (Novolog Vial Sliding Scale -) 1 vial SQ TIDAC [facility] PRN Reason: Protocol Last Admin: 03/27/17 06:12 Dose: Not Given Insulin Detemir (Levemir Vial) 55 units SQ AM [facility] Last Admin: 03/27/17 06:56 Dose: 55 units Squfk-3-Vrvs Ethyl Esters (Lovaza -) 2 gm PO BID [facility] Last Admin: 03/27/17 09:32 Dose: 2 gm Pantoprazole Sodium (Protonix -) 40 mg PO DAILY [facility] Last Admin: 03/27/17 09:33 Dose: 40 mg Ranolazine (Ranexa -) 1,000 mg PO BID [facility] Last Admin: 03/27/17 09:32 Dose: 1,000 mg Simethicone (Mylicon -) 80 mg PO QID PRN PRN Reason: GAS Last Admin: 03/25/17 15:31 Dose: 80 mg Valsartan (Diovan -) 80 mg PO DAILY [facility] Last Admin: 03/27/17 09:33 Dose: 80 mg - Objective Vital Signs: Vital Signs Temperature 98.1 F 03/27/17 08:35 Pulse Rate 80 03/27/17 08:35 Respiratory Rate 20 03/27/17 08:35 Blood Pressure 166/71 03/27/17 08:35 O2 Sat by Pulse Oximetry (%) 97 03/26/17 21:22 Neck: Yes: Supple Cardiovascular: Yes: Regular Rate and Rhythm, Murmur (Soft SM LSB and apex), S1 , S2 Respiratory: Yes: CTA Bilaterally Gastrointestinal: Yes: Normal Bowel Sounds, Soft. No: Tenderness Edema: No Additional Findings/Remarks: Review of System HEENT: No headache, photophobia, blurring of vision CARD: No chest pain, palpitations, SOB RESP: No cough, sputum production, (-) hemoptysis ABD: (+) nausea, vomiting - resolved, denies: diarrhea, abdominal pain, melena, hematemesis MUSC: No joint pains UROL: No urinary symptoms NEURO: No seizure, syncope (+) dizziness - improved Labs: CBC, BMP 03/27/17 05:55 03/27/17 05:55 Problem List - Problems (1) Dizziness Code(s): R42 - DIZZINESS AND GIDDINESS (2) Hyponatremia Code(s): E87.1 - HYPO-OSMOLALITY AND HYPONATREMIA (3) Weakness Code(s): R53.1 - WEAKNESS (4) CAD (coronary artery disease) Code(s): I25.10 - ATHSCL HEART DISEASE OF [place] CORONARY ARTERY W/O ANG PCTRS Qualifiers: Coronary Disease-Associated Artery/Lesion type: [place] artery [place] vs. transplanted heart: [place] heart Associated angina: without angina Qualified Code(s): I25.10 - Atherosclerotic heart disease of [place] coronary artery without angina pectoris (5) CKD (chronic kidney disease) Code(s): N18.9 - CHRONIC KIDNEY DISEASE, UNSPECIFIED (6) Diabetes Code(s): E11.9 - TYPE 2 DIABETES MELLITUS WITHOUT COMPLICATIONS Qualifiers: Diabetes mellitus type: type 2 Diabetes mellitus complication status: without complication Diabetes mellitus termite control representative insulin use: without termite control representative use Qualified Code(s): E11.9 - Type 2 diabetes mellitus without complications (7) HTN (hypertension) Code(s): I10 - ESSENTIAL (PRIMARY) HYPERTENSION Qualifiers: Hypertension type: essential hypertension Qualified Code(s): I10 - Essential (primary) hypertension (8) Hyperlipidemia Code(s): E78.5 - HYPERLIPIDEMIA, UNSPECIFIED Qualifiers: Hyperlipidemia type: pure hypercholesterolemia Qualified Code(s): E78.00 - Pure hypercholesterolemia, unspecified; E78.0 - Pure hypercholesterolemia Assessment/Plan 1. Hypoglycemia associated with symptoms of dizziness, nausea and vomiting 2. History of CAD status post PCI/REEMA (1997 BMS to RCA, 2009 REEMA to LAD), angina pectoris 3. Hypertension 4. Type 2 (Insulin dependent) diabetes mellitus 5. Hypercholesterolemia 6. Diastolic dysfunction with class 0-1 NYHA classification LV failure 7. Mitral valve regurgitation 8. Pulmonary sarcoidosis 9. History of hepatits C 10. CKD 11. DJD 12. Anemia PLAN: 1. Continue Carvedilol (Coreg CR) and Margarita or equivalent (currently on Amlodipine and Valsartan), as tolerated. Monitor electrolytes and renal function 2. Continue Hydralazine 3. Continue Ranexa 4. Statin - currently on Atorvastatin, but patient has been on Livalo. Continue Zetia. 5. Continue ASA +/- Plavix 6. Continue diuretics - PO Lasix 7. Continue Vascepa - but can be given as outpatient. 8. Office records are in the chart for review - continue current medical therapy. Monitor for hypoglycemia and adjust diabetes regimen accordingly. Further plans are to follow. Discharge planning Humphrey Ramos MD
--- NOTE | 2017-03-27 13:09 | PN ---
Progress Note (short form) - Note Progress Note: Renal Follow up for CKD and electrolyte abnormalities Pt seen and examined at the bedside no acute complaints denies sob, chest pain, abd pain Vital Signs Temperature 98.1 F 03/27/17 08:35 Pulse Rate 80 03/27/17 08:35 Respiratory Rate 20 03/27/17 08:35 Blood Pressure 166/71 03/27/17 08:35 O2 Sat by Pulse Oximetry (%) 96 03/27/17 09:00 Intake & Output 03/24/17 03/25/17 03/26/17 03/27/17 23:59 23:59 23:59 23:59 Intake Total 240 300 Balance 240 300 Weight 190 lb 189 lb 189 lb Gen: NAD, awake and alert CVS: RRR, NO M/R Lungs: CTA, no rales or wheeze Abd: soft NT/ND Ext: Trace to 1+ edema in LE CBC, BMP 03/27/17 05:55 03/27/17 05:55 Current Medications Amlodipine Besylate (Norvasc -) 10 mg PO DAILY [facility] Last Admin: 03/27/17 09:33 Dose: 10 mg Atorvastatin Calcium (Lipitor -) 10 mg PO HS [facility] Last Admin: 03/26/17 22:18 Dose: 10 mg Carvedilol (Coreg Cr -) 80 mg PO DAILY [facility] Last Admin: 03/27/17 09:34 Dose: 80 mg Clopidogrel Bisulfate (Plavix -) 75 mg PO DAILY [facility] Last Admin: 03/27/17 09:32 Dose: 75 mg Ezetimibe (Zetia -) 10 mg PO HS [facility] Last Admin: 03/26/17 22:18 Dose: 10 mg Folic Acid (Folic Acid -) 1 mg PO DAILY [facility] Last Admin: 03/27/17 09:33 Dose: 1 mg Furosemide (Lasix -) 40 mg PO DAILY [facility] Last Admin: 03/27/17 09:33 Dose: 40 mg Hydralazine HCl (Apresoline -) 50 mg PO DAILY [facility] Last Admin: 03/27/17 09:33 Dose: 50 mg Insulin Aspart (Novolog Vial Sliding Scale -) 1 vial SQ TIDAC [facility] PRN Reason: Protocol Last Admin: 03/27/17 11:39 Dose: Not Given Insulin Detemir (Levemir Vial) 55 units SQ AM [facility] Last Admin: 03/27/17 06:56 Dose: 55 units Xihky-6-Rjeg Ethyl Esters (Lovaza -) 2 gm PO BID [facility] Last Admin: 03/27/17 09:32 Dose: 2 gm Pantoprazole Sodium (Protonix -) 40 mg PO DAILY [facility] Last Admin: 03/27/17 09:33 Dose: 40 mg Ranolazine (Ranexa -) 1,000 mg PO BID [facility] Last Admin: 03/27/17 09:32 Dose: 1,000 mg Simethicone (Mylicon -) 80 mg PO QID PRN PRN Reason: GAS Last Admin: 03/25/17 15:31 Dose: 80 mg Valsartan (Diovan -) 80 mg PO DAILY [facility] Last Admin: 03/27/17 09:33 Dose: 80 mg 76 year old woman with PMhx of Hepatitis C on [place], CAD, Hypertension, DM on Insulin who presented with the ED with complaints of N/V and Hypoglycemia with Cr of 1.1, K of 5.4 and Na of 129. #Hyponatremia Etiology likkely hypovolemic hyponatremia in setting of N/V and diuretics serum Na is now improved to normal limits can continue home dose of diuretics on discharge #Hyperkalemia Serum Na improved and stable #CKD Stage 3 Cr 1.1 in 2013 Ua w/o protein or sediment follow up with PMD on discharge #Nausea/Vomiting/Hypoglycemia improved now oral diet as tolerated Insulin as per primary #Hypertension continue Diovan/Lasix/Coreg/Hydralazine Goal BP < 140/90 #Hepatitis C continue management as per Primary Thank you for allowing us to take part in the care of this patient no renal contradiction for discharge Davidson Hannon DO Problem List - Problems (1) Hyponatremia Code(s): E87.1 - HYPO-OSMOLALITY AND HYPONATREMIA (2) CHRISTIANO (acute kidney injury) Code(s): N17.9 - ACUTE KIDNEY FAILURE, UNSPECIFIED (3) CAD (coronary artery disease) Code(s): I25.10 - ATHSCL HEART DISEASE OF [place] CORONARY ARTERY W/O ANG PCTRS Qualifiers: Coronary Disease-Associated Artery/Lesion type: [place] artery [place] vs. transplanted heart: [place] heart Associated angina: without angina Qualified Code(s): I25.10 - Atherosclerotic heart disease of [place] coronary artery without angina pectoris (4) Diabetes Code(s): E11.9 - TYPE 2 DIABETES MELLITUS WITHOUT COMPLICATIONS Qualifiers: Diabetes mellitus type: type 2 Diabetes mellitus complication status: without complication Diabetes mellitus group home insulin use: without group home use Qualified Code(s): E11.9 - Type 2 diabetes mellitus without complications (5) HTN (hypertension) Code(s): I10 - ESSENTIAL (PRIMARY) HYPERTENSION Qualifiers: Hypertension type: essential hypertension Qualified Code(s): I10 - Essential (primary) hypertension (6) Hypoglycemia Code(s): E16.2 - HYPOGLYCEMIA, UNSPECIFIED
== END 2017-03-27 13:15 | disposition home health service (06) ==
LOC: JER 23:36 → JERBED 03-25 03:54 → J4W 03-25 16:37 → J4S 03-27 10:32 → J4W 03-27 10:37
PROVIDERS: ADMIT Family Medicine; ATTEND Family Medicine
PROC: 3E033GC Introduction of Other Therapeutic Substance into Peripheral Vein, Percutaneous Approach (ICD-10-PCS; principal; 2017-03-25)
PROC: 3E013VG Introduction of Insulin into Subcutaneous Tissue, Percutaneous Approach (ICD-10-PCS; 2017-03-25)
PROC: 3E0337Z Introduction of Electrolytic and Water Balance Substance into Peripheral Vein, Percutaneous Approach (ICD-10-PCS; 2017-03-25)
DX: R42 Dizziness and giddiness (principal); E87.1 Hypo-osmolality and hyponatremia; I12.9 Hypertensive chronic kidney disease with stage 1 through stage 4 chronic kidney disease, or unspecified chronic kidney disease; I25.10 Atherosclerotic heart disease of native coronary artery without angina pectoris; E11.649 Type 2 diabetes mellitus with hypoglycemia without coma; E11.22 Type 2 diabetes mellitus with diabetic chronic kidney disease; E78.5 Hyperlipidemia, unspecified; E05.90 Thyrotoxicosis, unspecified without thyrotoxic crisis or storm; E04.1 Nontoxic single thyroid nodule; D64.9 Anemia, unspecified; J45.909 Unspecified asthma, uncomplicated; Z95.5 Presence of coronary angioplasty implant and graft; Z88.0 Allergy status to penicillin; Z79.82 Long term (current) use of aspirin; Z79.4 Long term (current) use of insulin; Z79.01 Long term (current) use of anticoagulants; N18.3 Chronic kidney disease, stage 3 (moderate); N17.9 Acute kidney failure, unspecified; R53.1 Weakness
CPT/HCPCS: 36415; 70450-TC; 71010-TC; 80053; 81003; 82009; 82272; 82550; 82570; 82728; 83540; 83550; 83735; 83930; 83935; 84100; 84300; 84484; 85025; 87086; 93005; 93010; 97116-GP; 97161-GP; 99284-25; G0378

== ENCOUNTER 2017-03-28 19:16 | Emergency (ER) | payer OTHER ==
[2017-03-28 19:24] VITALS: BP 178/76; PULSE 89; TEMP 98.1; BMI 30.1
--- NOTE | 2017-03-28 19:52 | PDOC ---
History of Present Illness - History of Present Illness Initial Comments: 03/28/17 20:23 Patient is a 76 year old female with significant medical hx of CAD, HTN, sarcoidosis, Hep C and DM who is presenting to the ED with dizziness for three days. Three days ago the patient was admitted for dizziness, nausea, vomiting, diarrhea, and chills. Patient was seen by Dr. Mota and discharged home yesterday on hydralazine and instructed to follow up with PCP. The patient returns today with complaint of dizziness, feeling unsteady, nausea, frontal headache, and right ear pain. The patient states that her dizziness feels as if the room is spinning. Her dizziness worsens when she closes her eyes and when she gets up to walk. She states that she feels unsteady when walking. Patient has not had any vomiting since three days ago. Daughter notes that the patient s blood pressure was higher than usual today. Denies fever. <Gabi Benavides - Last Filed: 03/28/17 20:23> <Georges Card - Last Filed: 03/28/17 21:40> - General Chief Complaint: Lightheaded Stated Complaint: Lightheaded Time Seen by Provider: 03/28/17 19:42 Past History <Gabi Benavides - Last Filed: 03/28/17 20:23> - Past Medical History Anemia: Yes Asthma: Yes Cancer: No Cardiac Disorders: Yes (2 cardiac stents) CVA: No COPD: No CHF: No Diabetes: Yes GI Disorders: Yes (GASTRITIS) Disorders: No HTN: Yes Hypercholesterolemia: Yes Liver Disease: Yes (hepatitis c) Suicide Attempt (Hx): No Seizures: No Thyroid Disease: Yes (HYPERTHYROIDISM-LOBE NODULE) - Surgical History Abdominal Surgery: No Appendectomy: Yes (COLONOSCOPY) Cardiac Surgery: Yes (2 stents) Cholecystectomy: No Lung Surgery: Yes (bx sarcoidosis) Neurologic Surgery: No Orthopedic Surgery: No - Immunization History Immunization Up to Date: Yes - Psycho/Social/Smoking Cessation Hx Anxiety: No Suicidal Ideation: No Smoking Status: No Smoking History: Never smoked Have you smoked in the past 12 months: No Number of Cigarettes Smoked Daily: 0 Hx Alcohol Use: No Drug/Substance Use Hx: No Substance Use Type: None Hx Substance Use Treatment: No <Georges Card - Last Filed: 03/28/17 21:40> - Past Medical History Allergies/Adverse Reactions: Allergies Allergy/AdvReac Type Severity Reaction Status Date / Time Penicillins Allergy Mild Difficulty Verified 03/28/17 19:24 Breathing Home Medications: Ambulatory Orders Amlodipine Bes/Olmesartan Med [Margarita 10-40 mg Tablet] 1 each PO DAILY 03/25/17 Carvedilol Phosphate [Coreg Cr -] 80 mg PO DAILY 03/25/17 Cholecalciferol (Vitamin D3) [Vitamin D3 -] 1,000 unit PO DAILY 03/25/17 Clopidogrel Bisulfate [Plavix -] 75 mg PO DAILY 03/25/17 Dexlansoprazole [Dexilant] 60 mg PO DAILY 03/25/17 Ezetimibe [Zetia] 10 mg PO DAILY 03/25/17 Folic Acid 1 mg PO DAILY 03/25/17 Furosemide [Lasix] 40 mg PO DAILY 03/25/17 Ibandronate Sodium [Boniva] 150 mg PO MONTHLY 03/25/17 Icosapent Ethyl [Vascepa] 2 tab PO BID 03/25/17 Insulin Glargine,Hum.rec.anlog [Lantus Solostar PEN -] 55 units SQ ACBK Insulin Regular, Human [Humulin R U-500 Kwikpen] 3 - 5 unit SQ TID 03/25/17 Mometasone Furoate 1 - 2 sprays NS DAILY 03/25/17 Multivitamins [Multivit ([facility] Formulary)] 1 tab PO DAILY 03/25/17 Pitavastatin Calcium [Livalo] 2 mg PO DAILY 03/25/17 Ranolazine [Ranexa] 1,000 mg PO Q12H 03/25/17 Vitamin B Complex 1 each PO DAILY 03/25/17 Hydralazine HCl [Apresoline -] 50 mg PO BID #30 tablet 03/27/17 Meclizine HCl 25 mg PO TID #30 tab.chew 03/28/17 Review of Systems - Review of Systems Comments:: 03/28/17 20:23 CONSTITUTIONAL: No fever, no chills, no fatigue EYES: No visual changes ENT: Right ear pain. No sore throat CARDIOVASCULAR: No chest pain, no palpitations RESPIRATORY: No cough, no SOB GI: Nausea. No abdominal pain, no vomiting, no constipation, no diarrhea GENITOURINARY: No dysuria, no frequency, no hematuria MUSKULOSKELETAL: No backpain, no joint pain, no myalgias SKIN: No rash NEURO: Dizziness, frontal headache, feeling unsteady <Gabi Benavides - Last Filed: 03/28/17 20:23> *Physical Exam - Vital Signs Last Vital Signs Temp Pulse Resp BP Pulse Ox 98.1 F 89 18 178/76 98 03/28/17 19:18 03/28/17 19:18 03/28/17 19:18 03/28/17 19:18 03/28/17 19:45 <Gabi Benavides - Last Filed: 03/28/17 20:23> - Vital Signs Last Vital Signs Temp Pulse Resp BP Pulse Ox 98.1 F 89 18 178/76 98 03/28/17 19:18 03/28/17 19:18 03/28/17 19:18 03/28/17 19:18 03/28/17 19:18 - Physical Exam Comments: 03/28/17 21:35 EXAMINATION CONSTITUTIONAL: Well-appearing; well-nourished; in no apparent distress HEAD: Normocephalic; atraumatic EYES: PERRL; EOM intact; no nystagmus; ENMT: External appears normal; normal oropharynx; no mastoid tenderness bilaterally; NECK: Supple; non-tender; no cervical lymphadenopathy CARD: Normal S1, S2; no murmurs, rubs, or gallops RESP: Normal chest excursion with respiration; breath sounds clear and equal bilaterally; no wheezes, rhonchi, or rales ABD: Soft, non-distended; non-tender; no palpable organomegaly, no palpable hernias EXT: Normal ROM in all four extremities; non-tender to palpation; distal pulses intact SKIN: Warm, dry, no rash NEURO: Cranial nerves II through XII are grossly intact; motor is 554; no pronation drift; gait is stable; finger to nose is normal bilaterally; there is no dysmetria; <Georges Card - Last Filed: 03/28/17 21:40> ED Treatment Course - Medications Given in the ED: ED Medications Discontinued Medications Generic Name Dose Route Start Last Admin Trade Name Freq PRN Reason Stop Dose Admin Meclizine HCl 25 mg 03/28/17 20:08 03/28/17 20:12 Antivert - PO 03/28/17 20:09 25 mg ONCE ONE Administration <Gabi Benavides - Last Filed: 03/28/17 20:23> Medical Decision Making - Medical Decision Making 03/28/17 21:35 Patient is a well-appearing 76-year-old female with multiple comorbidities who presents to the ER with signs and symptoms of peripheral vertigo. Patient had been admitted and evaluated by neurology during the last 48 hours. Peripheral vertigo was suspected as well. today, Patient had received meclizine in the ER with complete resolution of her symptoms. I reconsulted neurology and peripheral vertigo is suspected. There is no indication for central cause of the patient's symptoms at this time. CT of head obtained 40 hours previously revealed no evidence of acute intracranial pathology. Will discharge with meclizine with outpatient follow-up. <Georges Card - Last Filed: 03/28/17 21:40> *DC/Admit/Observation/Transfer - Attestations Scribe Attestion: 03/28/17 20:25 Documentation prepared by Gabi Benavides, acting as medical laboratory scientist for Georges Card MD. <Gabi Benavides - Last Filed: 03/28/17 20:23> - Attestations Physician Attestion: 03/28/17 21:34 The documentation was prepared by the scribe under my direct supervision. I have reviewed the documentation which correctly represents the findings, medical decision-making and critical action taken by me. <Georges Card - Last Filed: 03/28/17 21:40> Diagnosis at time of Disposition: Dizziness - Discharge Dispostion Disposition: HOME Condition at time of disposition: Stable - Referrals Referrals: Bridgette Farias MD [Primary Care Provider] - - Patient Instructions Printed Discharge Instructions: Vertigo
[2017-03-28] MEDS ORDERED: MECLIZINE HCL 25 MG TABLET (FP) PO ONE (20:08)
[2017-03-28] MEDS ORDERED: MECLIZINE HCL 25 MG TABLET (FP) ONE (20:13)
== END 2017-03-28 22:06 | disposition home or self-care (01) ==
LOC: JER 19:16
DX: R42 Dizziness and giddiness (principal); I10 Essential (primary) hypertension; J45.909 Unspecified asthma, uncomplicated; Z95.5 Presence of coronary angioplasty implant and graft; E11.9 Type 2 diabetes mellitus without complications; B19.20 Unspecified viral hepatitis C without hepatic coma; E05.90 Thyrotoxicosis, unspecified without thyrotoxic crisis or storm
CPT/HCPCS: 99282-25

== ENCOUNTER 2018-11-29 21:50 | Inpatient (IN) | payer OTHER ==
--- NOTE | 2018-11-29 22:31 | PDOC ---
History of Present Illness - General Chief Complaint: Chest Pain Stated Complaint: SOB HIGH BLOOD PRESURE/PAIN IN LEFT HAND Time Seen by Provider: 11/29/18 22:31 - History of Present Illness Initial Comments: 11/29/18 22:37 Ms. Murphy is a 78 yo female w/ pmh of CAD (w/ stents, on plavix), HTN, sarcoidosis, Hep C (s/p treatment) and DM who presents for evaluation of 1 day history of left sided chest pain radiating to left arm. Patient reports she was her normal self when going to bed last night however had this pain throughout the day with additional shortness of breath on exertion, neck pain made worse with deep inspiration, and blood pressure noted in the 180's systolic at home. The patient denies headache and dizziness. Denies fever, chills, nausea, vomit, diarrhea and constipation. Denies dysuria, frequency, urgency and hematuria. Past History - Past Medical History Allergies/Adverse Reactions: Allergies Allergy/AdvReac Type Severity Reaction Status Date / Time Penicillins Allergy Mild Difficulty Verified 03/28/17 19:24 Breathing Home Medications: Ambulatory Orders Amlodipine Bes/Olmesartan Med [Margarita 10-40 mg Tablet] 1 each PO DAILY 03/25/17 Carvedilol Phosphate [Coreg Cr -] 80 mg PO DAILY 03/25/17 Cholecalciferol (Vitamin D3) [Vitamin D3 -] 1,000 unit PO DAILY 03/25/17 Clopidogrel Bisulfate [Plavix -] 75 mg PO DAILY 03/25/17 Dexlansoprazole [Dexilant] 60 mg PO DAILY 03/25/17 Ezetimibe [Zetia] 10 mg PO DAILY 03/25/17 Folic Acid 1 mg PO DAILY 03/25/17 Furosemide [Lasix] 40 mg PO DAILY 03/25/17 Icosapent Ethyl [Vascepa] 2 tab PO BID 03/25/17 Insulin Glargine,Hum.rec.anlog [Lantus Solostar PEN -] 55 units SQ ACBK Insulin Regular, Human [Humulin R U-500 Kwikpen] 3 - 5 unit SQ TID 03/25/17 Mometasone Furoate 1 - 2 sprays NS DAILY 03/25/17 Multivitamins [Multivit ([facility] Formul[facility])] 1 tab PO DAILY 03/25/17 Pitavastatin Calcium [Livalo] 2 mg PO DAILY 03/25/17 Vitamin B Complex 1 each PO DAILY 03/25/17 hydrALAZINE HCL [Apresoline -] 50 mg PO TID 11/29/18 Anemia: Yes Asthma: Yes Cancer: No Cardiac Disorders: Yes (2 cardiac stents) CVA: No COPD: No CHF: No Diabetes: Yes GI Disorders: Yes (GASTRITIS) Disorders: No HTN: Yes Hypercholesterolemia: Yes Liver Disease: Yes (hepatitis c) Seizures: No Thyroid Disease: Yes (HYPERTHYROIDISM-LOBE NODULE) - Surgical History Abdominal Surgery: No Appendectomy: Yes (COLONOSCOPY) Cardiac Surgery: Yes (2 stents) Cholecystectomy: No Lung Surgery: Yes (bx sarcoidosis) Neurologic Surgery: No Orthopedic Surgery: No - Immunization History Immunization Up to Date: Yes - Suicide/Smoking/Psychosocial Hx Smoking Status: No Smoking History: Unknown if ever smoked Have you smoked in the past 12 months: No Number of Cigarettes Smoked Daily: 0 Hx Alcohol Use: No Drug/Substance Use Hx: No Substance Use Type: None Hx Substance Use Treatment: No Review of Systems - Review of Systems Comments:: 11/29/18 22:44 GENERAL/CONSTITUTIONAL: No fever or chills. No weakness. HEAD, EYES, EARS, NOSE AND THROAT: No change in vision. No ear pain or discharge. No sore throat. CARDIOVASCULAR: +Radiating chest pain with pleuritic pain on deep inspiration as described. Increased dyspnea on exertion. RESPIRATORY: No cough, wheezing, or hemoptysis. GASTROINTESTINAL: No nausea, vomiting, diarrhea or constipation. GENITOURINARY: No dysuria, frequency, or change in urination. MUSCULOSKELETAL: No joint or muscle swelling or pain. No neck or back pain. SKIN: No rash NEUROLOGIC: No headache, vertigo, loss of consciousness, or change in strength/ sensation. ENDOCRINE: No increased thirst. No abnormal weight change HEMATOLOGIC/LYMPHATIC: No anemia, easy bleeding, or history of blood clots. ALLERGIC/IMMUNOLOGIC: No hives or skin allergy. *Physical Exam - Vital Signs Last Vital Signs Temp Pulse Resp BP Pulse Ox 98.1 F 80 20 139/56 L 97 11/29/18 22:10 11/29/18 22:10 11/29/18 22:10 11/29/18 22:10 11/29/18 22:10 - Physical Exam Comments: 11/29/18 22:44 GENERAL: Awake, alert, and fully oriented, in no acute distress HEAD: No signs of trauma, normocephalic, atraumatic EYES: PERRLA, EOMI, sclera anicteric, conjunctiva clear ENT: Auricles normal inspection, hearing grossly normal, nares patent, oropharynx clear without exudates. Moist mucosa NECK: Normal ROM, supple, no lymphadenopathy, JVD, or masses LUNGS: No distress, speaks full sentences, clear to auscultation bilaterally HEART: Regular rate and rhythm, normal S1 and S2, no murmurs, rubs or gallops, peripheral pulses normal and equal bilaterally. ABDOMEN: Soft, nontender, normoactive bowel sounds. No guarding, no rebound. No masses EXTREMITIES: Normal inspection, Normal range of motion, no edema. No clubbing or cyanosis. NEUROLOGICAL: Cranial nerves II through XII grossly intact. Normal speech, normal gait, no focal sensorimotor deficits SKIN: Warm, Dry, normal turgor, no rashes or lesions noted. Moderate Sedation - Procedure Monitoring Vital Signs: Procedure Monitoring Vital Signs Temperature 98.1 F 11/29/18 22:10 Pulse Rate 80 11/29/18 22:10 Respiratory Rate 20 11/29/18 22:10 Blood Pressure 139/56 L 11/29/18 22:10 O2 Sat by Pulse Oximetry (%) 97 11/29/18 22:10 ED Treatment Course - LABORATORY CBC & Chemistry Diagram: 11/29/18 22:53 11/29/18 22:53 Medical Decision Making - Medical Decision Making 11/29/18 22:45 Ms. Murphy is a 78 yo female w/ pmh as described who presents for evaluation of symptoms concerning for ACS vs. lung process vs. MSK pain. Patient evaluation started with EKG, cardiac monitoring, CXR, and laboratory evaluation. 11/29/18 23:42 Patient EKG normal sinus. Laboratory evaluation pending. Patient signed out to Dr. Li for further evaluation. *DC/Admit/Observation/Transfer Diagnosis at time of Disposition: Chest pain Qualifiers: Chest pain type: unspecified Qualified Code(s): R07.9 - Chest pain, unspecified - Referrals - Patient Instructions - Post Discharge Activity
[2018-11-29] MEDS ORDERED: ASPIRIN 325 MG TABLET PO ONE (22:39)
[2018-11-29] MEDS ORDERED: ASPIRIN 325 MG TABLET ONE (23:02)
[2018-11-29 23:26] LABS: BASO % 1.2 % (0-2.0); EOS % 2.2 % (0-4.5); HEMATOCRIT 34.7 % (32.4-45.2); HEMOGLOBIN 11.7 GM/dL (10.7-15.3); LYMPH % 27.9 % (8-40); MCH 27.5 pg (25.7-33.7); MCHC 33.8 g/dl (32.0-36.0); MEAN CELL VOLUME 81.4 fl (80-96); MEAN PLT VOLUME 7.9 fl (7.5-11.1); MONO % 11.4 % (3.8-10.2); NEUT % 57.3 % (42.8-82.8); PLATELET COUNT 239 K/MM3 (134-434); RBC 4.26 M/mm3 (3.60-5.2); RDW 16.3 % (11.6-15.6)
[2018-11-29 23:27] LABS: URINE APPEARANCE CLEAR; URINE BILIRUBIN NEGATIVE (<2.0 mg/dL); URINE COLOR YELLOW; URINE GLUCOSE (UA) NEGATIVE (NEGATIVE); URINE KETONE NEGATIVE (NEGATIVE); URINE LEUK ESTERASE NEGATIVE (NEGATIVE); URINE NITRITE NEGATIVE (NEGATIVE); URINE PROTEIN NEGATIVE (NEGATIVE); URINE UROBILINOGEN 0.2 mg/dL (0.2-1.0)
[2018-11-29 23:48] LABS: ALK PHOS 50 U/L (45-117); ANION GAP 6 MMOL/L (8-16); BILIRUBIN,TOTAL 0.3 mg/dL (0.2-1); BLOOD UREA NITROGEN 29 mg/dL (7-18); CALCIUM 9.2 mg/dL (8.5-10.1); CHLORIDE 96 mmol/L (98-107); CO2 28 mmol/L (21-32); CREATININE 1.1 mg/dL (0.55-1.3); GLUCOSE,RANDOM 87 mg/dL (74-106); POTASSIUM 4.3 mmol/L (3.5-5.1); SGOT/AST 23 U/L (15-37); SGPT/ALT 29 U/L (13-61); SODIUM 130 mmol/L (136-145); TOT PROT 7.9 g/dl (6.4-8.2)
[2018-11-30 00:03] LABS: PROTHROMBIN TIME (PATIENT) 11.8 SEC (9.7-13.0)
[2018-11-30 00:06] LABS: ACTIVATED PTT 27.5 SECONDS (25.2-36.5)
--- NOTE | 2018-11-30 00:12 | PDOC ---
*Physical Exam - Vital Signs Last Vital Signs Temp Pulse Resp BP Pulse Ox 98.1 F 80 20 139/56 L 97 11/29/18 22:10 11/29/18 22:10 11/29/18 22:10 11/29/18 22:10 11/29/18 22:10 ED Treatment Course - LABORATORY CBC & Chemistry Diagram: 12/01/18 06:00 12/01/18 06:00 - ADDITIONAL ORDERS Additional order review: Laboratory Results 11/29/18 11/29/18 11/29/18 22:53 22:53 22:53 PT with INR 11.80 INR 1.00 PTT (Actin FS) 27.5 Sodium 130 L Potassium 4.3 Chloride 96 L Carbon Dioxide 28 Anion Gap 6 L BUN 29 H Creatinine 1.1 Creat Clearance w eGFR 47.91 Random Glucose 87 Calcium 9.2 Total Bilirubin 0.3 AST 23 ALT 29 Alkaline Phosphatase 50 Creatine Kinase 121 Troponin I < 0.02 Total Protein 7.9 Albumin 4.0 Urine Color Yellow Urine Appearance Clear Urine pH 7.0 D Ur Specific Metaline 1.006 L Urine Protein Negative Urine Glucose (UA) Negative Urine Ketones Negative Urine Blood Negative Urine Nitrite Negative Urine Bilirubin Negative Urine Urobilinogen 0.2 Ur Leukocyte Esterase Negative 11/29/18 22:53 RBC 4.26 MCV 81.4 MCHC 33.8 RDW 16.3 H MPV 7.9 Neutrophils % 57.3 Lymphocytes % 27.9 D Monocytes % 11.4 H Eosinophils % 2.2 D Basophils % 1.2 - Medications Given in the ED: ED Medications Discontinued Medications Generic Name Dose Route Start Last Admin Trade Name Freq PRN Reason Stop Dose Admin Aspirin 325 mg 11/29/18 22:39 11/29/18 23:04 Asa - PO 11/29/18 22:40 325 mg ONCE ONE Administration Medical Decision Making - Medical Decision Making Patient signed out by Dr. Ramos 78yo F with PMH of CAD s/p stents and on plavix, HTN, Sarcoidosis, HCV s/p treatment, DM complaining of chest pain. Tpn negative EKG with NSR Plan for admission for ACS rule-out 11/30/18 00:[address] Lewis who accepted patient for admission 11/30/18 02:01 *DC/Admit/Observation/Transfer Diagnosis at time of Disposition: Chest pain Qualifiers: Chest pain type: unspecified Qualified Code(s): R07.9 - Chest pain, unspecified - Referrals - Patient Instructions - Post Discharge Activity
--- NOTE | 2018-11-30 01:38 | PDOC ---
Attending Attestation - Resident Resident Name: Jesus Ramos - ED Attending Attestation I have performed the following: I have examined & evaluated the patient, The case was reviewed & discussed with the resident, I agree w/resident's findings & plan, Exceptions are as noted - HPI HPI: 11/30/18 01:33 The patient is a 78 year old female, with a significant PMH of CAD (w/ 2 stents , on plavix), HTN, sarcoidosis, Hep C (s/p treatment) and DM, who presents to the emergency department with 1 day of left sided chest pain. The patient states the left sided chest pain radiates to the left arm, constant throughout the day, with associated shortness of breath and neck pain. The patient states her blood pressure was noted to be in the 180s systolic while at home prior to arrival. The patient denies palpitations, leg swelling, calf tenderness, headache and dizziness. Denies fever, chills, nausea, vomit, diarrhea and constipation. Denies dysuria, frequency, urgency and hematuria. Allergies: Penicillins - Physicial Exam PE: 11/30/18 01:37 agree with resident exam - Medical Decision Making 11/30/18 01:38 78yo F with MMP including CAD s/p stents presents to the ED with 1 day of CP that has resolved on arrival to the ED. Vitals unremarkable. Exam unremarkable. EKG non ischemic. HS is 5. Given high risk CP, plan to obs for ACS r/o Heart Score/ECG Review - History History: Moderately suspicious - Electrocardiogram EKG: Normal - Age Age: >/= 65 - Risk Factors Risk Factors Heart Score: Yes Hx Hypertension Based on the list above the patient has:: >/=3 risk factors or Hx atherosclerotic disease - Troponin Troponin: </= normal limit - Score Heart Score - Total: 5 #1 11/30/18 01:38 Twelve-lead EKG was performed and reviewed by me. Normal sinus rhythm, rate 75. Normal axis and intervals. No ST elevations or T-wave inversions.
--- NOTE | 2018-11-30 01:42 | HP ---
Admitting History and Physical - Primary Care Physician PCP: Bridgette Farias I - Admission Chief Complaint: Left sided arm pain with SOB with exertion History of Present Illness: 78 y/o F with hx of CAD s/p 2 stents, HTN, DL, presented with arm pain that started at 10 am that is reproducible with palpation, patient stated that she is also getting winded with minimal exertion, denied any fever, chills, n/v/d, no palpitations, or LOC History Source: Patient, Medical Record - Past Medical History Cardiovascular: Yes: CAD, HTN Pulmonary: Yes: Other (Sarcoidosis) Hepatobiliary: Yes: Hepatitis C Endocrine: Yes: Diabetes Mellitus - Smoking History Smoking history: Unknown if ever smoked Have you smoked in the past 12 months: No Aproximately how many cigarettes per day: 0 - Alcohol/Substance Use Hx Alcohol Use: No - Social History ADL: Independent History of Recent Travel: No Home Medications - Allergies Allergies/Adverse Reactions: Allergies Allergy/AdvReac Type Severity Reaction Status Date / Time Penicillins Allergy Mild Difficulty Verified 03/28/17 19:24 Breathing - Home Medications Home Medications: Ambulatory Orders Amlodipine Bes/Olmesartan Med [Margarita 10-40 mg Tablet] 1 each PO DAILY 03/25/17 Carvedilol Phosphate [Coreg Cr -] 80 mg PO DAILY 03/25/17 Cholecalciferol (Vitamin D3) [Vitamin D3 -] 1,000 unit PO DAILY 03/25/17 Clopidogrel Bisulfate [Plavix -] 75 mg PO DAILY 03/25/17 Dexlansoprazole [Dexilant] 60 mg PO DAILY 03/25/17 Ezetimibe [Zetia] 10 mg PO DAILY 03/25/17 Folic Acid 1 mg PO DAILY 03/25/17 Furosemide [Lasix] 40 mg PO DAILY 03/25/17 Icosapent Ethyl [Vascepa] 2 tab PO BID 03/25/17 Insulin Glargine,Hum.rec.anlog [Lantus Solostar PEN -] 55 units SQ ACBK Insulin Regular, Human [Humulin R U-500 Kwikpen] 3 - 5 unit SQ TID 03/25/17 Mometasone Furoate 1 - 2 sprays NS DAILY 03/25/17 Multivitamins [Multivit ([facility] Formulary)] 1 tab PO DAILY 03/25/17 Pitavastatin Calcium [Livalo] 2 mg PO DAILY 03/25/17 Vitamin B Complex 1 each PO DAILY 03/25/17 hydrALAZINE HCL [Apresoline -] 50 mg PO TID 11/29/18 Family Disease History - Family Disease History Family Disease History: Heart Disease: Father Review of Systems - Review of Systems Constitutional: reports: No Symptoms Eyes: reports: No Symptoms HENT: reports: No Symptoms Neck: reports: No Symptoms Cardiovascular: reports: No Symptoms Respiratory: reports: SOB on Exertion Gastrointestinal: reports: No Symptoms Musculoskeletal: reports: No Symptoms Integumentary: reports: No Symptoms Neurological: reports: No Symptoms Endocrine: reports: No Symptoms Hematology/Lymphatic: reports: No Symptoms Physical Examination Vital Signs: Vital Signs Temperature 98.1 F 11/29/18 22:10 Pulse Rate 80 11/29/18 22:10 Respiratory Rate 20 11/29/18 22:10 Blood Pressure 139/56 L 11/29/18 22:10 O2 Sat by Pulse Oximetry (%) 97 11/29/18 22:10 Constitutional: Yes: Well Nourished, No Distress, Calm Eyes: Yes: WNL, Conjunctiva Clear, EOM Intact HENT: Yes: WNL, Atraumatic, Normocephalic Neck: Yes: WNL, Supple Cardiovascular: Yes: WNL, Regular Rate and Rhythm Respiratory: Yes: WNL, Regular, CTA Bilaterally Gastrointestinal: Yes: WNL, Normal Bowel Sounds, Soft Musculoskeletal: Yes: WNL Extremities: Yes: WNL Integumentary: Yes: WNL Neurological: Yes: WNL, Alert, Oriented Labs: CBC, BMP 11/29/18 22:53 11/29/18 22:53 Imaging - Results Chest X-ray: Image Reviewed EKG: Image Reviewed Problem List - Problems (1) Chest pain Assessment/Plan: admit telemetry aspirin cardiology consult trend troponin trend ECG obtain echocardiogram start the patient on clopidogrel if the troponin are rising start the patient on heparin / enoxaparin if there s a suspicion for infarction Code(s): R07.9 - CHEST PAIN, UNSPECIFIED Qualifiers: Chest pain type: unspecified Qualified Code(s): R07.9 - Chest pain, unspecified (2) CAD (coronary artery disease) Assessment/Plan: hx of stents c/w aspirin c/w beta-blockers Code(s): I25.10 - ATHSCL HEART DISEASE OF [place] CORONARY ARTERY W/O ANG PCTRS Qualifiers: Coronary Disease-Associated Artery/Lesion type: [place] artery [place] vs. 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 Diabetes mellitus complication status: without complication Qualified Code(s): E11.9 - Type 2 diabetes mellitus without complications (5) HTN (hypertension) Assessment/Plan: c/w hyralazine star the patient on amlodipine 10 start the patient on sartan (amlodipine/olmesartan is non-formulary) Code(s): I10 - ESSENTIAL (PRIMARY) HYPERTENSION Qualifiers: Hypertension type: essential hypertension Qualified Code(s): I10 - Essential (primary) hypertension (6) Hyperlipidemia Assessment/Plan: start the patient on atorvastatin 40mg Code(s): E78.5 - HYPERLIPIDEMIA, UNSPECIFIED Qualifiers: Hyperlipidemia type: pure hypercholesterolemia Qualified Code(s): E78.00 - Pure hypercholesterolemia, unspecified
[2018-11-30] MEDS ORDERED: ATORVASTATIN CA 40 MG TABLET (FP) PO ONE (01:51)
[2018-11-30] MEDS ORDERED: amLODIPine BESYLATE 5 MG TABLET (FP) PO ONE (01:53)
[2018-11-30] MEDS ORDERED: VALSARTAN 80 MG TABLET (UD) PO ONE (01:53)
[2018-11-30] MEDS ORDERED: ATORVASTATIN CA 10 MG TABLET (FP) ONE (01:56)
[2018-11-30 05:12] VITALS: BMI 33.6
[2018-11-30] MEDS: hydrALAZINE HCL 50 MG TABLET (FP) PO SCH ×3 (05:49→22:29)
[2018-11-30] MEDS: INSULIN SLIDING SCALE (NOVOLOG) 1 VIAL SQ SCH ×3 (06:16→17:27)
[2018-11-30] MEDS: FUROSEMIDE 40 MG TABLET (FP) PO SCH (09:33)
[2018-11-30] MEDS: PANTOPRAZOLE 40 MG TABLET (FP) PO SCH (09:33)
[2018-11-30] MEDS: MULTIVITAMINS (DAILY MVI) TABLET (FP) PO SCH (09:33)
[2018-11-30] MEDS: CHOLECALCIFEROL (VIT D3) 1,000 UNIT (25 MCG) TABLET PO SCH (09:34)
[2018-11-30] MEDS: CLOPIDOGREL BISULFATE 75 MG TABLET (FP) PO SCH (09:34)
[2018-11-30] MEDS: FOLIC ACID 1 MG TABLET (FP) PO SCH (09:34)
[2018-11-30] MEDS: VALSARTAN 160 MG TABLET (UD) PO SCH (09:34)
[2018-11-30] MEDS: EZETIMIBE 10 MG TABLET (FP) PO SCH (09:34)
[2018-11-30] MEDS: amLODIPine BESYLATE 10 MG TABLET (FP) PO SCH (09:37)
[2018-11-30] MEDS ORDERED: PATIENT'S OWN MEDICATION (NON-FORMULARY) (Amlodipine Bes/Olmesartan Med [Azor 10-40 Mg Tab PO SCH (10:00)
[2018-11-30 12:16] LABS: HEMATOCRIT 32.2 % (32.4-45.2); HEMOGLOBIN 10.9 GM/dL (10.7-15.3); MCH 27.8 pg (25.7-33.7); MEAN PLT VOLUME 7.5 fl (7.5-11.1); PLATELET COUNT 206 K/MM3 (134-434); RBC 3.92 M/mm3 (3.60-5.2); RDW 16.2 % (11.6-15.6)
[2018-11-30 12:42] LABS: ALBUMIN 3.5 g/dl (3.4-5.0); ALK PHOS 39 U/L (45-117); ANION GAP 5 MMOL/L (8-16); BILIRUBIN,TOTAL 0.4 mg/dL (0.2-1); BLOOD UREA NITROGEN 24 mg/dL (7-18); CHLORIDE 99 mmol/L (98-107); CO2 29 mmol/L (21-32); CREATININE 0.9 mg/dL (0.55-1.3); GLUCOSE,RANDOM 175 mg/dL (74-106); POTASSIUM 4.2 mmol/L (3.5-5.1); SGOT/AST 22 U/L (15-37); SGPT/ALT 28 U/L (13-61); SODIUM 132 mmol/L (136-145); TOT PROT 6.9 g/dl (6.4-8.2)
--- NOTE | 2018-11-30 16:35 | EKG ---
Test Reason : Blood Pressure : / mmHG Vent. Rate : 075 BPM Atrial Rate : 075 BPM P-R Int : 200 ms QRS Dur : 082 ms QT Int : 416 ms P-R-T Axes : 035 -04 037 degrees QTc Int : 464 ms NORMAL SINUS RHYTHM NORMAL ECG WHEN COMPARED WITH ECG OF 25-MAR-2017 00:24, NO SIGNIFICANT CHANGE WAS FOUND Confirmed by KAREN HOWELL MD ([id number]) on 11/30/2018 4:35:21 PM Referred By: Confirmed By:KAREN HOWELL MD
--- NOTE | 2018-11-30 19:53 | PN ---
Progress Note, Physician Chief Complaint: SOB L arm pain Chest pain History of Present Illness: Previous notes and events reviewed awake and alert NAD denies chest pain, sob c/o L arm pain - Current Medication List Current Medications: Active Medications Amlodipine Besylate (Norvasc -) 10 mg PO DAILY [facility] Last Admin: 11/30/18 09:37 Dose: 10 mg Cholecalciferol (Vitamin D3 -) 1,000 unit PO DAILY [facility] Last Admin: 11/30/18 09:34 Dose: 1,000 unit Clopidogrel Bisulfate (Plavix -) 75 mg PO DAILY [facility] Last Admin: 11/30/18 09:34 Dose: 75 mg Ezetimibe (Zetia -) 10 mg PO DAILY [facility] Last Admin: 11/30/18 09:34 Dose: 10 mg Folic Acid (Folic Acid -) 1 mg PO DAILY [facility] Last Admin: 11/30/18 09:34 Dose: 1 mg Furosemide (Lasix -) 40 mg PO DAILY [facility] Last Admin: 11/30/18 09:33 Dose: 40 mg Hydralazine HCl (Apresoline -) 50 mg PO TID [facility] Last Admin: 11/30/18 14:34 Dose: 50 mg Insulin Aspart (Novolog Vial Sliding Scale -) 1 vial SQ TIDAC [facility]; Protocol Last Admin: 11/30/18 17:27 Dose: Not Given Insulin Detemir (Levemir Vial) 55 units SQ [facility] Multivitamins/Minerals/Vitamin C (Tab-A-Vit -) 1 tab PO DAILY [facility] Last Admin: 11/30/18 09:33 Dose: 1 tab Pantoprazole Sodium (Protonix -) 40 mg PO DAILY [facility] Last Admin: 11/30/18 09:33 Dose: 40 mg Valsartan (Diovan -) 320 mg PO DAILY [facility] Last Admin: 11/30/18 09:34 Dose: 320 mg - Objective Vital Signs: Vital Signs Temperature 98.9 F 11/30/18 18:30 Pulse Rate 80 11/30/18 18:30 Respiratory Rate 20 11/30/18 18:30 Blood Pressure 135/61 11/30/18 18:30 O2 Sat by Pulse Oximetry (%) 95 11/30/18 08:51 Constitutional: Yes: No Distress, Calm Eyes: Yes: Conjunctiva Clear HENT: Yes: Atraumatic Cardiovascular: Yes: Regular Rate and Rhythm Respiratory: Yes: Regular, CTA Bilaterally Gastrointestinal: Yes: Normal Bowel Sounds, Soft Musculoskeletal: Yes: Muscle Weakness Extremities: Yes: WNL Edema: No Neurological: Yes: Alert, Oriented Psychiatric: Yes: Alert, Oriented Labs: CBC, BMP 11/30/18 11:56 11/30/18 11:56 INR, PTT INR 1.00 (0.83-1.09) 11/29/18 22:53 Troponin, BNP 11/29/18 11/30/18 22:53 18:25 Troponin I < 0.02 < 0.02 Problem List - Problems (1) Chest pain Assessment/Plan: -cardiology consult -tele monitoring -trop neg x 2 -cont plavix Code(s): R07.9 - CHEST PAIN, UNSPECIFIED Qualifiers: Chest pain type: unspecified Qualified Code(s): R07.9 - Chest pain, unspecified (2) CHRISTIANO (acute kidney injury) Assessment/Plan: -BUN/Cr 24/0.9 -cont to monitor renal trend Code(s): N17.9 - ACUTE KIDNEY FAILURE, UNSPECIFIED (3) CAD (coronary artery disease) Assessment/Plan: -continue plavix and statin Code(s): I25.10 - ATHSCL HEART DISEASE OF [place] CORONARY ARTERY W/O ANG PCTRS Qualifiers: Coronary Disease-Associated Artery/Lesion type: [place] artery [place] vs. 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: without assisted use Diabetes mellitus complication status: without complication Qualified Code(s): E11.9 - Type 2 diabetes mellitus without complications (5) HTN (hypertension) Assessment/Plan: -cont valsartan, amlodipine, hydralazine -low na diet Code(s): I10 - ESSENTIAL (PRIMARY) HYPERTENSION Qualifiers: Hypertension type: essential hypertension Qualified Code(s): I10 - Essential (primary) hypertension (6) Hyperlipidemia Assessment/Plan: -cont statin and zetia -lipid profile Code(s): E78.5 - HYPERLIPIDEMIA, UNSPECIFIED Qualifiers: Hyperlipidemia type: pure hypercholesterolemia Qualified Code(s): E78.00 - Pure hypercholesterolemia, unspecified (7) Hyponatremia Assessment/Plan: -renal consult -Na 132 -NS at 50cc/hr x 24hrs--will d/c in AM if Na level show uptrend and nl Code(s): E87.1 - HYPO-OSMOLALITY AND HYPONATREMIA Assessment/Plan see problem list
[2018-11-30] MEDS ORDERED: SODIUM CHLORIDE 1,000 ML IV SCH (20:00)
[2018-11-30] MEDS: INSULIN (LEVEMIR) 100 UNITS/ML UNITS SQ SCH (22:29)
[2018-12-01] MEDS: hydrALAZINE HCL 50 MG TABLET (FP) PO SCH (06:54)
[2018-12-01] MEDS: INSULIN SLIDING SCALE (NOVOLOG) 1 VIAL SQ SCH ×3 (06:54→17:06)
[2018-12-01 07:22] LABS: HEMOGLOBIN 11.1 GM/dL (10.7-15.3); MCH 26.7 pg (25.7-33.7); MCHC 32.7 g/dl (32.0-36.0); MEAN CELL VOLUME 81.6 fl (80-96); MEAN PLT VOLUME 7.8 fl (7.5-11.1); PLATELET COUNT 216 K/MM3 (134-434); RBC 4.16 M/mm3 (3.60-5.2); RDW 16.4 % (11.6-15.6); WHITE BLOOD COUNT 5.1 K/mm3 (4.0-10.0)
[2018-12-01 07:44] LABS: ALBUMIN 3.6 g/dl (3.4-5.0); ALK PHOS 38 U/L (45-117); ANION GAP 7 MMOL/L (8-16); BILIRUBIN,TOTAL 0.3 mg/dL (0.2-1); BLOOD UREA NITROGEN 26 mg/dL (7-18); CHLORIDE 100 mmol/L (98-107); CO2 28 mmol/L (21-32); GLUCOSE,RANDOM 106 mg/dL (74-106); POTASSIUM 4.2 mmol/L (3.5-5.1); SGOT/AST 21 U/L (15-37); SGPT/ALT 27 U/L (13-61); SODIUM 135 mmol/L (136-145); TOT PROT 7.1 g/dl (6.4-8.2)
[2018-12-01] MEDS: VALSARTAN 160 MG TABLET (UD) PO SCH (09:26)
[2018-12-01] MEDS: FUROSEMIDE 40 MG TABLET (FP) PO SCH (09:26)
[2018-12-01] MEDS: PANTOPRAZOLE 40 MG TABLET (FP) PO SCH (09:26)
[2018-12-01] MEDS: MULTIVITAMINS (DAILY MVI) TABLET (FP) PO SCH (09:26)
[2018-12-01] MEDS: amLODIPine BESYLATE 10 MG TABLET (FP) PO SCH (09:26)
[2018-12-01] MEDS: CLOPIDOGREL BISULFATE 75 MG TABLET (FP) PO SCH (09:26)
[2018-12-01] MEDS: FOLIC ACID 1 MG TABLET (FP) PO SCH (09:26)
[2018-12-01] MEDS: CHOLECALCIFEROL (VIT D3) 1,000 UNIT (25 MCG) TABLET PO SCH (09:26)
[2018-12-01] MEDS: EZETIMIBE 10 MG TABLET (FP) PO SCH (09:27)
--- NOTE | 2018-12-01 11:57 | CONSULT ---
Consult - text type - Consultation Consultation Note: Renal consult for hyponatremia This is a 78 year old woman with hx of CAD, Hypertension who presented with complaints of left arm pain and admitted for r/o ACS with hyponatremia. Serum Na was 130 on presentation. Pt w/o any seizures, ams, RAMIREZ, lethargy or weakness. Pt was on diuretics at home and reports poor oral intake the last few days. Denies any N/V/D, abd pain. Denies drinking excessive amounts of water. Has been on IVF since admission with improvement in serum na levels. PMhx: as above Allergies: NKDA Family Hx: NC Social Hx: No T/A/D ROS; as per HPI, all other pertinent ros negative Home Medications Medication Instructions Recorded Amlodipine Bes/Olmesartan Med 1 each PO DAILY 03/25/17 [Margarita 10-40 mg Tablet] Carvedilol Phosphate [Coreg Cr -] 80 mg PO DAILY 03/25/17 Cholecalciferol (Vitamin D3) 1,000 unit PO DAILY 03/25/17 [Vitamin D3 -] Clopidogrel Bisulfate [Plavix -] 75 mg PO DAILY 03/25/17 Dexlansoprazole [Dexilant] 60 mg PO DAILY 03/25/17 Ezetimibe [Zetia] 10 mg PO DAILY 03/25/17 Folic Acid 1 mg PO DAILY 03/25/17 Furosemide [Lasix] 40 mg PO DAILY 03/25/17 Icosapent Ethyl [Vascepa] 2 tab PO BID 03/25/17 Insulin Glargine,Hum.rec.anlog 55 units SQ ACBK 03/25/17 [Lantus Solostar PEN -] Insulin Regular, Human [Humulin R 3 - 5 unit SQ TID 03/25/17 U-500 Kwikpen] Mometasone Furoate 1 - 2 sprays NS DAILY 03/25/17 Multivitamins [Multivit ([facility] 1 tab PO DAILY 03/25/17 Formulary)] Pitavastatin Calcium [Livalo] 2 mg PO DAILY 03/25/17 Vitamin B Complex 1 each PO DAILY 03/25/17 hydrALAZINE HCL [Apresoline -] 50 mg PO TID 11/29/18 Vital Signs Temperature 98.6 F 12/01/18 10:00 Pulse Rate 80 12/01/18 10:00 Respiratory Rate 20 12/01/18 10:00 Blood Pressure 117/55 L 12/01/18 10:00 O2 Sat by Pulse Oximetry (%) 95 12/01/18 09:00 Intake & Output 11/28/18 11/29/18 11/30/18 12/01/18 23:59 23:59 23:59 23:59 Intake Total 535 500 Output Total 450 Balance 85 500 Weight 83.915 kg 83.461 kg 81.556 kg NAD awake and alert neck supple, no JVD RRR, no M/R CTA, no rales soft NT/ND no LE edema, clubbing or cyanosis no focal neurologic defects CBC, BMP 12/01/18 06:00 12/01/18 06:00 Laboratory Tests 11/29/18 11/30/18 12/01/18 22:53 11:56 06:00 Sodium 130 L 132 L 135 L Current Medications Amlodipine Besylate (Norvasc -) 10 mg PO DAILY [facility] Last Admin: 12/01/18 09:26 Dose: 10 mg Cholecalciferol (Vitamin D3 -) 1,000 unit PO DAILY [facility] Last Admin: 12/01/18 09:26 Dose: 1,000 unit Clopidogrel Bisulfate (Plavix -) 75 mg PO DAILY [facility] Last Admin: 12/01/18 09:26 Dose: 75 mg Ezetimibe (Zetia -) 10 mg PO DAILY [facility] Last Admin: 12/01/18 09:27 Dose: 10 mg Folic Acid (Folic Acid -) 1 mg PO DAILY [facility] Last Admin: 12/01/18 09:26 Dose: 1 mg Furosemide (Lasix -) 40 mg PO DAILY [facility] Last Admin: 12/01/18 09:26 Dose: 40 mg Hydralazine HCl (Apresoline -) 50 mg PO TID [facility] Last Admin: 12/01/18 06:54 Dose: 50 mg Sodium Chloride (Normal Saline -) 1,000 mls @ 50 mls/hr IV ASDIR [facility] Stop: 12/01/18 19:51 Last Admin: 11/30/18 20:02 Dose: 50 mls/hr Insulin Aspart (Novolog Vial Sliding Scale -) 1 vial SQ TIDAC [facility]; Protocol Last Admin: 12/01/18 06:54 Dose: Not Given Insulin Detemir (Levemir Vial) 55 units SQ [facility] Last Admin: 11/30/18 22:29 Dose: Not Given Multivitamins/Minerals/Vitamin C (Tab-A-Vit -) 1 tab PO DAILY [facility] Last Admin: 12/01/18 09:26 Dose: 1 tab Pantoprazole Sodium (Protonix -) 40 mg PO DAILY [facility] Last Admin: 12/01/18 09:26 Dose: 40 mg Valsartan (Diovan -) 320 mg PO DAILY [facility] Last Admin: 12/01/18 09:26 Dose: 320 mg 78 year old woman with hx of CAD, Hypertension who presented with complaints of left arm pain and admitted for r/o ACS with hyponatremia. Serum Na was 130 on presentation. #Hyponatremia likely hypovolemic hyponatremia #Left arm pain #Hypertension #CAD Check Urine studies for Antolin, UOSM Check serum OSM, uric acid, tsh and cortiosl hold lasix for now continue gentle IVF hydration no acute indication for 3% saline Cardiology follow up Thank you Davidson Hannon DO
--- NOTE | 2018-12-01 12:44 | PN ---
Progress Note (short form) - Note Progress Note: Chief Complaint: Events noted, notes reviewed, left arm discomfort, denies any chest pain, reports dyspnea with exertion History of Present Illness: Seen and examined on telemetry. Full consult dictated Home Medications Medication Instructions Recorded Amlodipine Bes/Olmesartan Med 1 each PO DAILY 03/25/17 [Margarita 10-40 mg Tablet] Carvedilol Phosphate [Coreg Cr -] 80 mg PO DAILY 03/25/17 Cholecalciferol (Vitamin D3) 1,000 unit PO DAILY 03/25/17 [Vitamin D3 -] Clopidogrel Bisulfate [Plavix -] 75 mg PO DAILY 03/25/17 Dexlansoprazole [Dexilant] 60 mg PO DAILY 03/25/17 Ezetimibe [Zetia] 10 mg PO DAILY 03/25/17 Folic Acid 1 mg PO DAILY 03/25/17 Furosemide [Lasix] 40 mg PO DAILY 03/25/17 Icosapent Ethyl [Vascepa] 2 tab PO BID 03/25/17 Insulin Glargine,Hum.rec.anlog 55 units SQ ACBK 03/25/17 [Lantus Solostar PEN -] Insulin Regular, Human [Humulin R 3 - 5 unit SQ TID 03/25/17 U-500 Kwikpen] Mometasone Furoate 1 - 2 sprays NS DAILY 03/25/17 Multivitamins [Multivit ([facility] 1 tab PO DAILY 03/25/17 Formulary)] Pitavastatin Calcium [Livalo] 2 mg PO DAILY 03/25/17 Vitamin B Complex 1 each PO DAILY 03/25/17 hydrALAZINE HCL [Apresoline -] 50 mg PO TID 11/29/18 Medications: Current Medications Amlodipine Besylate (Norvasc -) 10 mg PO DAILY [facility] Last Admin: 12/01/18 09:26 Dose: 10 mg Cholecalciferol (Vitamin D3 -) 1,000 unit PO DAILY [facility] Last Admin: 12/01/18 09:26 Dose: 1,000 unit Clopidogrel Bisulfate (Plavix -) 75 mg PO DAILY [facility] Last Admin: 12/01/18 09:26 Dose: 75 mg Ezetimibe (Zetia -) 10 mg PO DAILY [facility] Last Admin: 12/01/18 09:27 Dose: 10 mg Folic Acid (Folic Acid -) 1 mg PO DAILY [facility] Last Admin: 12/01/18 09:26 Dose: 1 mg Furosemide (Lasix -) 40 mg PO DAILY [facility] Last Admin: 12/01/18 09:26 Dose: 40 mg Hydralazine HCl (Apresoline -) 50 mg PO TID [facility] Last Admin: 12/01/18 06:54 Dose: 50 mg Sodium Chloride (Normal Saline -) 1,000 mls @ 50 mls/hr IV ASDIR [facility] Stop: 12/01/18 19:51 Last Admin: 11/30/18 20:02 Dose: 50 mls/hr Insulin Aspart (Novolog Vial Sliding Scale -) 1 vial SQ TIDAC [facility]; Protocol Last Admin: 12/01/18 06:54 Dose: Not Given Insulin Detemir (Levemir Vial) 55 units SQ HS [facility] Last Admin: 11/30/18 22:29 Dose: Not Given Multivitamins/Minerals/Vitamin C (Tab-A-Vit -) 1 tab PO DAILY [facility] Last Admin: 12/01/18 09:26 Dose: 1 tab Pantoprazole Sodium (Protonix -) 40 mg PO DAILY [facility] Last Admin: 12/01/18 09:26 Dose: 40 mg Valsartan (Diovan -) 320 mg PO DAILY [facility] Last Admin: 12/01/18 09:26 Dose: 320 mg Review of Systems Cardiovascular: As noted above Respiratory: denies: Cough or Sputum Production Gastrointestinal: denies: Nausea, Vomiting, Diarrhea, Constipation or Abdominal Pain Musculoskeletal: No Symptoms Reported Endocrine: No Symptoms Reported Vital Signs: Last Vital Signs Temp Pulse Resp BP Pulse Ox 98.6 F 80 20 117/55 L 95 12/01/18 10:00 12/01/18 10:00 12/01/18 10:00 12/01/18 10:00 12/01/18 09:00 Intake & Output 11/28/18 11/29/18 11/30/18 12/01/18 23:59 23:59 23:59 23:59 Intake Total 535 500 Output Total 450 Balance 85 500 Weight 185 lb 184 lb 179 lb 12.8 oz Neck: Supple Negative JVD no bruit appreciated Respiratory: Clear to A&P Bilaterally Cardiovascular: S1 S2 Regular Rate Rhythm Gastrointestinal: Soft Benign Normal Bowel Sounds Ext: Negative Edema Labs: Troponin, BNP 11/30/18 18:25 Troponin I < 0.02 CBC, BMP 12/01/18 06:00 12/01/18 06:00 Hepatic Panel Total Bilirubin 0.3 mg/dL (0.2-1) 12/01/18 06:00 AST 21 U/L (15-37) 12/01/18 06:00 ALT 27 U/L (13-61) 12/01/18 06:00 Alkaline Phosphatase 38 U/L (45-117) L 12/01/18 06:00 Albumin 3.6 g/dl (3.4-5.0) 12/01/18 06:00 INR, PTT INR 1.00 (0.83-1.09) 11/29/18 22:53 Assessment/Plan ASSESSMENT: 1. Left arm discomfort probably musculo-skeletal in a patient with known history of CAD status post PCI/REEMA, angina pectoris 2. 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 Hypertension 4. Diabetes mellitus 5. Hypercholesterolemia 6. Mitral valve regurgitation 7. History of pulmonary sarcoidosis 8. History of hepatits C 9. CKD 10. Hyponatremia 11. DJD 12. Anemia PLAN: 1. Resume Carvedilol (Coreg CR) 2. Continue Margarita or equivalent (currently on Amlodipine and Valsartan) 3. Discontinue Hydralazine 4. Resume Ranexa 5. Resume statins patient has been on Livalo, continue Zetia and Vascepa 6. Continue ASA +/- Plavix 7. Agree with withholding diuretics/PO Lasix 8. No additional cardiovascular evaluation indicated at this point can be D/C home from the cardiovascular point of view Cam Dinh M.D.
[2018-12-01] MEDS: CARVEDILOL PHOSPHATE CR 40 MG CAPSULE (FP) PO SCH (14:06)
[2018-12-01] MEDS: RANOLAZINE E.R. 500 MG TABLET (FP) PO SCH ×2 (14:19→22:15)
--- NOTE | 2018-12-01 14:27 | CONS ---
DATE OF CONSULTATION: 12/01/2018 CONSULTATION REQUESTED BY: Steffen Winn MD CHIEF COMPLAINT: Left upper extremity discomfort. CARDIOVASCULAR EVALUATION: A 78-year-old female of /Thai descent, known to our service with known history of coronary artery disease status post percutaneous coronary intervention, stenting, angina pectoris, diastolic left ventricular dysfunction with chronic class 0 to 1 [place] Heart Association classification left ventricular failure, hypertensive cardiovascular disease, diabetes mellitus, hypercholesterolemia, pulmonary sarcoidosis, chronic kidney disease, degenerative joint disease, who presented to [facility] emergency room with left upper extremity discomfort which was noted on Sunday and subsequently it persisted. Symptoms were exacerbated with certain shoulder movements. The patient denied any associated symptomatology, i.e., diaphoresis. The patient actually denied any chest discomfort. The patient continues to report persistence of dyspnea with mild to moderate physical exertion. The patient denies any orthopnea, paroxysmal nocturnal dyspnea, or peripheral edema. The patient denies any palpitations, dizziness, lightheadedness or syncope. The patient reports fatigue and tiredness. PAST MEDICAL HISTORY: Coronary artery disease status post percutaneous coronary intervention, stenting, angina pectoris, diastolic left ventricular dysfunction with chronic class 0 to 1 [place] Heart Association classification left ventricular failure, hypertensive cardiovascular disease, diabetes mellitus, hypercholesterolemia, history of pulmonary sarcoidosis, history of hepatitis C, chronic kidney disease, degenerative joint disease. SOCIAL HISTORY: Nonsmoker. FAMILY HISTORY: Positive for coronary artery disease. ALLERGIES: PENICILLIN. MEDICAL THERAPY AT HOME: Included Margarita 10/40 mg once a day, Coreg CR 80 mg once a day, vitamin D 1000 units once a day, Plavix 75 mg once a day, Dexilant 60 mg once a day, Zetia 10 mg once a day, folic acid 1 mg once a day, Lasix 40 mg once a day, Medina 2 capsules twice a day, insulin as prescribed, Livalo 2 mg once a day, hydralazine 50 mg 3 times a day. REVIEW OF SYSTEMS: Head/Neck: Denies headache, photophobia, blurring of vision.Respiratory: No cough or sputum production. Cardiovascular: As noted above.Gastrointestinal: Denies nausea, vomiting, diarrhea, abdominal discomfort. Genitourinary: No symptoms reported. Musculoskeletal: History of degenerative joint disease. PHYSICAL EXAM: Vital Signs. Blood pressure 117/55 mmHg. Pulse rate is 80 bpm. Head and Neck: Pupils equal, round and reactive to light and accommodation. Extraocular muscles are intact. Anicteric sclerae. Negative JVD. No bruit appreciated. Chest: Clear to auscultation and percussion. Cardiovascular: S1, S2, regular, grade 1 to 2/6 systolic ejection murmur. No clicks or gallops. Abdomen: Soft, benign, normoactive bowel sounds. Extremities: Negative edema. Intact distal pulses. No calf tenderness. DIAGNOSTIC DATA: Electrocardiogram revealed sinus rhythm with nonspecific T-wave abnormality. Chest x-ray report was noted. CBC revealed white cell count 5.1, hemoglobin 11.1, platelet count 216. INR 1.0. Basic metabolic profile revealed sodium 135, potassium 4.2, BUN 26, creatinine 1.0, estimated GFR 53.48, glucose 106 with normal liver profile and troponin less than 0.02. ASSESSMENT: 1. Left arm discomfort, probably musculoskeletal in origin in a patient with known history of coronary artery disease post percutaneous coronary intervention, stenting, angina pectoris, clinically stable. 2. Diastolic left ventricular dysfunction with clinical class 0-1 [place] Heart Association classification left ventricular failure compensated/euvolemic. 3. Hypertensive cardiovascular disease. 4. Insulin-dependent diabetes mellitus. 5. Hypercholesterolemia. 6. History of mitral valve regurgitation. 7. History of pulmonary sarcoidosis. 8. History of hepatitis C. 9. Chronic kidney disease. 10. Hyponatremia, resolving. 11. Degenerative joint disease. 12. Chronic anemia. RECOMMENDATIONS: 1. Resumption of carvedilol, Coreg CR therapy. 2. Continuation of Margarita or equivalent. 3. Discontinuation of hydralazine therapy. 4. Resumption of Ranexa therapy. 5. Resumption of statins. Patient had been on Livalo therapy as outpatient. 6. Continuation of Zetia and Medina therapy. 7. Continuation of aspirin +/- Plavix. 8. Agree with withholding diuretics, p.o. Lasix in view of the above-noted hyponatremia. 9. No additional cardiovascular evaluation is indicated at this point. Can be discontinued home from the cardiovascular point of view. Thank you for your kind referral. GM WILLIAM M.D. GISSELLE/[id number]
[2018-12-01] MEDS ORDERED: PT OWN MED DRAWER 7, Y5N ONE (16:56)
--- NOTE | 2018-12-01 17:51 | PN ---
Progress Note, Physician Chief Complaint: SOB L arm pain Chest pain History of Present Illness: Previous notes and events reviewed awake and alert NAD denies chest pain, sob c/o L arm pain - Current Medication List Current Medications: Active Medications Amlodipine Besylate (Norvasc -) 10 mg PO DAILY [facility] Last Admin: 12/01/18 09:26 Dose: 10 mg Carvedilol (Coreg Cr -) 40 mg PO DAILY [facility] Last Admin: 12/01/18 14:06 Dose: 40 mg Cholecalciferol (Vitamin D3 -) 1,000 unit PO DAILY [facility] Last Admin: 12/01/18 09:26 Dose: 1,000 unit Clopidogrel Bisulfate (Plavix -) 75 mg PO DAILY [facility] Last Admin: 12/01/18 09:26 Dose: 75 mg Ezetimibe (Zetia -) 10 mg PO DAILY [facility] Last Admin: 12/01/18 09:27 Dose: 10 mg Folic Acid (Folic Acid -) 1 mg PO DAILY [facility] Last Admin: 12/01/18 09:26 Dose: 1 mg Furosemide (Lasix -) 40 mg PO DAILY [facility] Last Admin: 12/01/18 09:26 Dose: 40 mg Sodium Chloride (Normal Saline -) 1,000 mls @ 50 mls/hr IV ASDIR [facility] Stop: 12/01/18 19:51 Last Admin: 11/30/18 20:02 Dose: 50 mls/hr Insulin Aspart (Novolog Vial Sliding Scale -) 1 vial SQ TIDAC [facility]; Protocol Last Admin: 12/01/18 17:06 Dose: Not Given Insulin Detemir (Levemir Vial) 55 units SQ HS [facility] Last Admin: 11/30/18 22:29 Dose: Not Given Multivitamins/Minerals/Vitamin C (Tab-A-Vit -) 1 tab PO DAILY [facility] Last Admin: 12/01/18 09:26 Dose: 1 tab Pantoprazole Sodium (Protonix -) 40 mg PO DAILY [facility] Last Admin: 12/01/18 09:26 Dose: 40 mg Ranolazine (Ranexa -) 500 mg PO BID [facility] Last Admin: 12/01/18 14:19 Dose: 500 mg Valsartan (Diovan -) 320 mg PO DAILY [facility] Last Admin: 12/01/18 09:26 Dose: 320 mg - Objective Vital Signs: Vital Signs Temperature 98.9 F 12/01/18 14:00 Pulse Rate 79 12/01/18 14:00 Respiratory Rate 20 12/01/18 14:00 Blood Pressure 136/56 L 12/01/18 14:00 O2 Sat by Pulse Oximetry (%) 95 12/01/18 09:00 Constitutional: Yes: No Distress, Calm Eyes: Yes: Conjunctiva Clear HENT: Yes: Atraumatic Cardiovascular: Yes: Regular Rate and Rhythm Respiratory: Yes: CTA Bilaterally Gastrointestinal: Yes: Normal Bowel Sounds, Soft Genitourinary: Yes: Incontinence Musculoskeletal: Yes: Muscle Weakness Extremities: Yes: WNL Edema: No Neurological: Yes: Alert, Oriented Psychiatric: Yes: Alert, Oriented Labs: CBC, BMP 12/01/18 06:00 12/01/18 06:00 INR, PTT INR 1.00 (0.83-1.09) 11/29/18 22:53 Problem List - Problems (1) Chest pain Assessment/Plan: -cardiology consult -tele monitoring -trop neg x 2 -cont plavix Code(s): R07.9 - CHEST PAIN, UNSPECIFIED Qualifiers: Chest pain type: unspecified Qualified Code(s): R07.9 - Chest pain, unspecified (2) CHRISTIANO (acute kidney injury) Assessment/Plan: -BUN/Cr 26/1.0 -cont to monitor renal trend Code(s): N17.9 - ACUTE KIDNEY FAILURE, UNSPECIFIED (3) CAD (coronary artery disease) Assessment/Plan: -continue plavix and statin Code(s): I25.10 - ATHSCL HEART DISEASE OF [place] CORONARY ARTERY W/O ANG PCTRS Qualifiers: Coronary Disease-Associated Artery/Lesion type: [place] artery [place] vs. transplanted heart: [place] heart Associated angina: without angina Qualified Code(s): I25.10 - Atherosclerotic heart disease of [place] coronary artery without angina pectoris (4) Diabetes Assessment/Plan: -BGM ACHS -ISS, Levemir -HgA1c Code(s): E11.9 - TYPE 2 DIABETES MELLITUS WITHOUT COMPLICATIONS Qualifiers: Diabetes mellitus type: type 2 Diabetes mellitus nursing home insulin use: without accounting lecturer use Diabetes mellitus complication status: without complication Qualified Code(s): E11.9 - Type 2 diabetes mellitus without complications (5) HTN (hypertension) Assessment/Plan: -cont valsartan, amlodipine, hydralazine -low na diet Code(s): I10 - ESSENTIAL (PRIMARY) HYPERTENSION Qualifiers: Hypertension type: essential hypertension Qualified Code(s): I10 - Essential (primary) hypertension (6) Hyperlipidemia Assessment/Plan: -cont statin and zetia -lipid profile Code(s): E78.5 - HYPERLIPIDEMIA, UNSPECIFIED Qualifiers: Hyperlipidemia type: pure hypercholesterolemia Qualified Code(s): E78.00 - Pure hypercholesterolemia, unspecified (7) Hyponatremia Assessment/Plan: -renal consult -Na 135 -NS at 50cc/hr x 24hrs Code(s): E87.1 - HYPO-OSMOLALITY AND HYPONATREMIA Assessment/Plan see problem list dvt ppx
[2018-12-01] MEDS: INSULIN (LEVEMIR) 100 UNITS/ML UNITS SQ SCH (22:14)
[2018-12-02] MEDS: INSULIN SLIDING SCALE (NOVOLOG) 1 VIAL SQ SCH ×3 (06:27→17:20)
[2018-12-02 06:42] LABS: HEMATOCRIT 33.4 % (32.4-45.2); HEMOGLOBIN 11.4 GM/dL (10.7-15.3); MCHC 34.2 g/dl (32.0-36.0); MEAN PLT VOLUME 7.9 fl (7.5-11.1); PLATELET COUNT 202 K/MM3 (134-434); RBC 4.07 M/mm3 (3.60-5.2); RDW 16.2 % (11.6-15.6); WHITE BLOOD COUNT 5.7 K/mm3 (4.0-10.0)
[2018-12-02 07:11] LABS: ALBUMIN 3.6 g/dl (3.4-5.0); ALK PHOS 42 U/L (45-117); ANION GAP 8 MMOL/L (8-16); BILIRUBIN,TOTAL 0.3 mg/dL (0.2-1); BLOOD UREA NITROGEN 27 mg/dL (7-18); CALCIUM 8.9 mg/dL (8.5-10.1); CHLORIDE 101 mmol/L (98-107); CHOLESTEROL 123 mg/dL (50-200); CO2 25 mmol/L (21-32); CREATININE 1.1 mg/dL (0.55-1.3); GLUCOSE,RANDOM 133 mg/dL (74-106); HDL CHOLESTEROL 33 mg/dL (40-60); POTASSIUM 4.2 mmol/L (3.5-5.1); SGOT/AST 20 U/L (15-37); SGPT/ALT 27 U/L (13-61); SODIUM 133 mmol/L (136-145); TOT PROT 7.1 g/dl (6.4-8.2); TRIGLYCERIDES 206 mg/dL (0-150)
--- NOTE | 2018-12-02 08:31 | PN ---
Progress Note, Physician - Current Medication List Current Medications: Active Medications Amlodipine Besylate (Norvasc -) 10 mg PO DAILY [facility] Last Admin: 12/01/18 09:26 Dose: 10 mg Carvedilol (Coreg Cr -) 40 mg PO DAILY [facility] Last Admin: 12/01/18 14:06 Dose: 40 mg Cholecalciferol (Vitamin D3 -) 1,000 unit PO DAILY [facility] Last Admin: 12/01/18 09:26 Dose: 1,000 unit Clopidogrel Bisulfate (Plavix -) 75 mg PO DAILY [facility] Last Admin: 12/01/18 09:26 Dose: 75 mg Ezetimibe (Zetia -) 10 mg PO DAILY [facility] Last Admin: 12/01/18 09:27 Dose: 10 mg Folic Acid (Folic Acid -) 1 mg PO DAILY [facility] Last Admin: 12/01/18 09:26 Dose: 1 mg Furosemide (Lasix -) 40 mg PO DAILY [facility] Last Admin: 12/01/18 09:26 Dose: 40 mg Insulin Aspart (Novolog Vial Sliding Scale -) 1 vial SQ TIDAC [facility]; Protocol Last Admin: 12/02/18 06:27 Dose: Not Given Insulin Detemir (Levemir Vial) 55 units SQ HS [facility] Last Admin: 12/01/18 22:14 Dose: Not Given Multivitamins/Minerals/Vitamin C (Tab-A-Vit -) 1 tab PO DAILY [facility] Last Admin: 12/01/18 09:26 Dose: 1 tab Pantoprazole Sodium (Protonix -) 40 mg PO DAILY [facility] Last Admin: 12/01/18 09:26 Dose: 40 mg Ranolazine (Ranexa -) 500 mg PO BID [facility] Last Admin: 12/01/18 22:15 Dose: 500 mg Valsartan (Diovan -) 320 mg PO DAILY [facility] Last Admin: 12/01/18 09:26 Dose: 320 mg - Objective Vital Signs: Vital Signs Temperature 99 F 12/02/18 06:00 Pulse Rate 90 12/02/18 06:00 Respiratory Rate 20 12/02/18 06:00 Blood Pressure 126/50 L 12/02/18 06:00 O2 Sat by Pulse Oximetry (%) 95 12/01/18 21:00 Labs: CBC, BMP 12/02/18 05:30 12/02/18 05:30 INR, PTT INR 1.00 (0.83-1.09) 11/29/18 22:53 Assessment/Plan - Problems (1) Chest pain Assessment/Plan: -cardiology consult noted -recurrent cp-stress more laila 1 year -nuclear -tele monitoring -trop neg x 2 -cont plavix Code(s): R07.9 - CHEST PAIN, UNSPECIFIED Qualifiers: Chest pain type: unspecified Qualified Code(s): R07.9 - Chest pain, unspecified (2) CHRISTIANO (acute kidney injury) Assessment/Plan: -BUN/Cr 26/1.0 -cont to monitor renal trend Code(s): N17.9 - ACUTE KIDNEY FAILURE, UNSPECIFIED (3) CAD (coronary artery disease) Assessment/Plan: -continue plavix and statin Code(s): I25.10 - ATHSCL HEART DISEASE OF [place] CORONARY ARTERY W/O ANG PCTRS Qualifiers: Coronary Disease-Associated Artery/Lesion type: [place] artery [place] vs. transplanted heart: [place] heart Associated angina: without angina Qualified Code(s): I25.10 - Atherosclerotic heart disease of [place] coronary artery without angina pectoris (4) Diabetes Assessment/Plan: -BGM ACHS -ISS, Levemir -HgA1c Code(s): E11.9 - TYPE 2 DIABETES MELLITUS WITHOUT COMPLICATIONS Qualifiers: Diabetes mellitus type: type 2 Diabetes mellitus superintendent container terminal insulin use: without superintendent container terminal use Diabetes mellitus complication status: without complication Qualified Code(s): E11.9 - Type 2 diabetes mellitus without complications (5) HTN (hypertension) Assessment/Plan: -cont valsartan, amlodipine, hydralazine -low na diet Code(s): I10 - ESSENTIAL (PRIMARY) HYPERTENSION Qualifiers: Hypertension type: essential hypertension Qualified Code(s): I10 - Essential (primary) hypertension (6) Hyperlipidemia Assessment/Plan: -cont statin and zetia -lipid profile Code(s): E78.5 - HYPERLIPIDEMIA, UNSPECIFIED Qualifiers: Hyperlipidemia type: pure hypercholesterolemia Qualified Code(s): E78.00 - Pure hypercholesterolemia, unspecified (7) Hyponatremia Assessment/Plan: -renal consult -Na 135 -NS at 50cc/hr x 24hrs Code(s): E87.1 - HYPO-OSMOLALITY AND HYPONATREMIA (8) Shoulder Pain/Arm pain Assessment/Plan: -Xray -Ortho
--- NOTE | 2018-12-02 09:47 | PN ---
Progress Note, Physician - Current Medication List Current Medications: Active Medications Amlodipine Besylate (Norvasc -) 10 mg PO DAILY [facility] Last Admin: 12/01/18 09:26 Dose: 10 mg Carvedilol (Coreg Cr -) 40 mg PO DAILY [facility] Last Admin: 12/01/18 14:06 Dose: 40 mg Cholecalciferol (Vitamin D3 -) 1,000 unit PO DAILY [facility] Last Admin: 12/01/18 09:26 Dose: 1,000 unit Clopidogrel Bisulfate (Plavix -) 75 mg PO DAILY [facility] Last Admin: 12/01/18 09:26 Dose: 75 mg Ezetimibe (Zetia -) 10 mg PO DAILY [facility] Last Admin: 12/01/18 09:27 Dose: 10 mg Folic Acid (Folic Acid -) 1 mg PO DAILY [facility] Last Admin: 12/01/18 09:26 Dose: 1 mg Furosemide (Lasix -) 40 mg PO DAILY [facility] Last Admin: 12/01/18 09:26 Dose: 40 mg Insulin Aspart (Novolog Vial Sliding Scale -) 1 vial SQ TIDAC ON [facility]; Protocol Last Admin: 12/02/18 06:27 Dose: Not Given Insulin Detemir (Levemir Vial) 55 units SQ HS [facility] Last Admin: 12/01/18 22:14 Dose: Not Given Multivitamins/Minerals/Vitamin C (Tab-A-Vit -) 1 tab PO DAILY [facility] Last Admin: 12/01/18 09:26 Dose: 1 tab Pantoprazole Sodium (Protonix -) 40 mg PO DAILY [facility] Last Admin: 12/01/18 09:26 Dose: 40 mg Ranolazine (Ranexa -) 500 mg PO BID [facility] Last Admin: 12/01/18 22:15 Dose: 500 mg Valsartan (Diovan -) 320 mg PO DAILY [facility] Last Admin: 12/01/18 09:26 Dose: 320 mg - Objective Vital Signs: Vital Signs Temperature 99 F 12/02/18 06:00 Pulse Rate 90 12/02/18 06:00 Respiratory Rate 20 12/02/18 06:00 Blood Pressure 126/50 L 12/02/18 06:00 O2 Sat by Pulse Oximetry (%) 95 12/01/18 21:00 Labs: CBC, BMP 12/02/18 05:30 12/02/18 05:30 INR, PTT INR 1.00 (0.83-1.09) 11/29/18 22:53
[2018-12-02] MEDS: CARVEDILOL PHOSPHATE CR 40 MG CAPSULE (FP) PO SCH (10:14)
[2018-12-02] MEDS: VALSARTAN 160 MG TABLET (UD) PO SCH (10:15)
[2018-12-02] MEDS: FOLIC ACID 1 MG TABLET (FP) PO SCH (10:18)
[2018-12-02] MEDS: amLODIPine BESYLATE 10 MG TABLET (FP) PO SCH (10:18)
[2018-12-02] MEDS: MULTIVITAMINS (DAILY MVI) TABLET (FP) PO SCH (10:19)
[2018-12-02] MEDS: CLOPIDOGREL BISULFATE 75 MG TABLET (FP) PO SCH (10:19)
[2018-12-02] MEDS: RANOLAZINE E.R. 500 MG TABLET (FP) PO SCH ×2 (10:19→21:49)
[2018-12-02] MEDS: CHOLECALCIFEROL (VIT D3) 1,000 UNIT (25 MCG) TABLET PO SCH (10:19)
[2018-12-02] MEDS: PANTOPRAZOLE 40 MG TABLET (FP) PO SCH (10:19)
[2018-12-02] MEDS: EZETIMIBE 10 MG TABLET (FP) PO SCH (10:20)
[2018-12-02] MEDS ORDERED: PT OWN MED DRAWER 7, Y5N ONE ×2 (10:27→15:44)
--- NOTE | 2018-12-02 11:06 | PN ---
Progress Note, Physician History of Present Illness: Left shoulder discomfort with arm raising. - Current Medication List Current Medications: Active Medications Amlodipine Besylate (Norvasc -) 10 mg PO DAILY [facility] Last Admin: 12/02/18 10:18 Dose: 10 mg Carvedilol (Coreg Cr -) 40 mg PO DAILY [facility] Last Admin: 12/02/18 10:14 Dose: 40 mg Cholecalciferol (Vitamin D3 -) 1,000 unit PO DAILY [facility] Last Admin: 12/02/18 10:19 Dose: 1,000 unit Clopidogrel Bisulfate (Plavix -) 75 mg PO DAILY [facility] Last Admin: 12/02/18 10:19 Dose: 75 mg Ezetimibe (Zetia -) 10 mg PO DAILY [facility] Last Admin: 12/02/18 10:20 Dose: 10 mg Folic Acid (Folic Acid -) 1 mg PO DAILY [facility] Last Admin: 12/02/18 10:18 Dose: 1 mg Furosemide (Lasix -) 40 mg PO DAILY [facility] Last Admin: 12/01/18 09:26 Dose: 40 mg Insulin Aspart (Novolog Vial Sliding Scale -) 1 vial SQ TIDAC [facility]; Protocol Last Admin: 12/02/18 06:27 Dose: Not Given Insulin Detemir (Levemir Vial) 55 units SQ HS [facility] Last Admin: 12/01/18 22:14 Dose: Not Given Multivitamins/Minerals/Vitamin C (Tab-A-Vit -) 1 tab PO DAILY [facility] Last Admin: 12/02/18 10:19 Dose: 1 tab Pantoprazole Sodium (Protonix -) 40 mg PO DAILY [facility] Last Admin: 12/02/18 10:19 Dose: 40 mg Ranolazine (Ranexa -) 500 mg PO BID [facility] Last Admin: 12/02/18 10:19 Dose: 500 mg Valsartan (Diovan -) 320 mg PO DAILY [facility] Last Admin: 12/02/18 10:15 Dose: 320 mg - Objective Vital Signs: Vital Signs Temperature 98.3 F 12/02/18 10:00 Pulse Rate 84 12/02/18 10:00 Respiratory Rate 20 12/02/18 10:00 Blood Pressure 152/64 12/02/18 10:00 O2 Sat by Pulse Oximetry (%) 95 12/01/18 21:00 Constitutional: Yes: No Distress, Calm Neck: Yes: Supple Cardiovascular: Yes: Regular Rate and Rhythm Respiratory: Yes: Regular, CTA Bilaterally Gastrointestinal: Yes: Normal Bowel Sounds, Soft, Abdomen, Obese Edema: No Labs: CBC, BMP 12/02/18 05:30 12/02/18 05:30 INR, PTT INR 1.00 (0.83-1.09) 11/29/18 22:53 - ....Imaging EKG: Report Reviewed (Tele: NSR) Problem List - Problems (1) Atypical chest pain Code(s): R07.89 - OTHER CHEST PAIN (2) CAD (coronary artery disease) Code(s): I25.10 - ATHSCL HEART DISEASE OF [place] CORONARY ARTERY W/O ANG PCTRS Qualifiers: Coronary Disease-Associated Artery/Lesion type: [place] artery [place] vs. transplanted heart: [place] heart Associated angina: without angina Qualified Code(s): I25.10 - Atherosclerotic heart disease of [place] coronary artery without angina pectoris (3) Diabetes Code(s): E11.9 - TYPE 2 DIABETES MELLITUS WITHOUT COMPLICATIONS Qualifiers: Diabetes mellitus type: type 2 Diabetes mellitus group home insulin use: without group home use Diabetes mellitus complication status: without complication Qualified Code(s): E11.9 - Type 2 diabetes mellitus without complications (4) HTN (hypertension) Code(s): I10 - ESSENTIAL (PRIMARY) HYPERTENSION Qualifiers: Hypertension type: essential hypertension Qualified Code(s): I10 - Essential (primary) hypertension (5) Hyperlipidemia Code(s): E78.5 - HYPERLIPIDEMIA, UNSPECIFIED Qualifiers: Hyperlipidemia type: pure hypercholesterolemia Qualified Code(s): E78.00 - Pure hypercholesterolemia, unspecified (6) Hyponatremia Code(s): E87.1 - HYPO-OSMOLALITY AND HYPONATREMIA Assessment/Plan 1. Left arm discomfort probably musculo-skeletal in a patient with known history of CAD status post PCI/REEMA, angina pectoris 2. 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 Hypertension 4. Diabetes mellitus 5. Hypercholesterolemia 6. Mitral valve regurgitation 7. History of pulmonary sarcoidosis 8. History of hepatits C 9. CKD 10. Hyponatremia 11. DJD 12. Anemia PLAN: 1. Continue Coreg CR 40 qd 2. Continue Margarita or equivalent (currently on Amlodipine 10 qd and Valsartan 320 qd) 3. Resume Ranexa 500 bid 4. Resume statins patient has been on Livalo, continue Zetia and Vascepa 5. Continue Plavix 75 qd 6. Agree with withholding diuretics/PO Lasix given hyponatremia 7. F/u pharm stress test ordered by PMD
--- NOTE | 2018-12-02 11:08 | PN ---
Progress Note (short form) - Note Progress Note: Renal follow up for hyponatremia Pt seen and examined at the bedside awake and alert continues to have pain in left arm no cp, sob, abd pain, N/V/D, fever or chills making urine Vital Signs Temperature 98.3 F 12/02/18 10:00 Pulse Rate 84 12/02/18 10:00 Respiratory Rate 20 12/02/18 10:00 Blood Pressure 152/64 12/02/18 10:00 O2 Sat by Pulse Oximetry (%) 95 12/01/18 21:00 Intake & Output 11/29/18 11/30/18 12/01/18 12/02/18 23:59 23:59 23:59 23:59 Intake Total 535 1480 Output Total 450 Balance 85 1480 Weight 83.915 kg 83.461 kg 81.556 kg NAD RRR, no M/R CTA, no rales soft NT/ND no LE edema CBC, BMP 12/02/18 05:30 12/02/18 05:30 Current Medications Amlodipine Besylate (Norvasc -) 10 mg PO DAILY [facility] Last Admin: 12/02/18 10:18 Dose: 10 mg Carvedilol (Coreg Cr -) 40 mg PO DAILY [facility] Last Admin: 12/02/18 10:14 Dose: 40 mg Cholecalciferol (Vitamin D3 -) 1,000 unit PO DAILY [facility] Last Admin: 12/02/18 10:19 Dose: 1,000 unit Clopidogrel Bisulfate (Plavix -) 75 mg PO DAILY [facility] Last Admin: 12/02/18 10:19 Dose: 75 mg Ezetimibe (Zetia -) 10 mg PO DAILY [facility] Last Admin: 12/02/18 10:20 Dose: 10 mg Folic Acid (Folic Acid -) 1 mg PO DAILY [facility] Last Admin: 12/02/18 10:18 Dose: 1 mg Furosemide (Lasix -) 40 mg PO DAILY [facility] Last Admin: 12/01/18 09:26 Dose: 40 mg Insulin Aspart (Novolog Vial Sliding Scale -) 1 vial SQ TIDAC [facility]; Protocol Last Admin: 12/02/18 06:27 Dose: Not Given Insulin Detemir (Levemir Vial) 55 units SQ HS [facility] Last Admin: 12/01/18 22:14 Dose: Not Given Multivitamins/Minerals/Vitamin C (Tab-A-Vit -) 1 tab PO DAILY [facility] Last Admin: 12/02/18 10:19 Dose: 1 tab Pantoprazole Sodium (Protonix -) 40 mg PO DAILY [facility] Last Admin: 12/02/18 10:19 Dose: 40 mg Ranolazine (Ranexa -) 500 mg PO BID [facility] Last Admin: 12/02/18 10:19 Dose: 500 mg Valsartan (Diovan -) 320 mg PO DAILY [facility] Last Admin: 12/02/18 10:15 Dose: 320 mg 78 year old woman with hx of CAD, Hypertension who presented with complaints of left arm pain and admitted for r/o ACS with hyponatremia. Serum Na was 130 on presentation. #Hyponatremia likely hypovolemic hyponatremia #Left arm pain #Hypertension #CAD Urine studies show significant urine Na which could be indicative of SIADH however pt was on diuretics so high sodium likely due to diuretic effect pt appears euvolemic and is w/o symptoms of hyponatremia would continue to hold Lasix for now oral solute intake as tolerated trend serum na daily Thank you Davidson Hannon DO
[2018-12-02] MEDS ORDERED: CELECOXIB 200 MG CAPSULE PO ONE (14:00)
[2018-12-02] MEDS: INSULIN (LEVEMIR) 100 UNITS/ML UNITS SQ SCH (21:50)
[2018-12-03] MEDS: INSULIN SLIDING SCALE (NOVOLOG) 1 VIAL SQ SCH ×3 (06:18→18:06)
[2018-12-03] MEDS: amLODIPine BESYLATE 10 MG TABLET (FP) PO SCH ×2 (08:07→09:00)
[2018-12-03 08:31] LABS: ANION GAP 8 MMOL/L (8-16); BLOOD UREA NITROGEN 28 mg/dL (7-18); CALCIUM 8.9 mg/dL (8.5-10.1); CHLORIDE 101 mmol/L (98-107); CO2 26 mmol/L (21-32); CREATININE 1.1 mg/dL (0.55-1.3); GLUCOSE,RANDOM 151 mg/dL (74-106); POTASSIUM 4.5 mmol/L (3.5-5.1); SODIUM 134 mmol/L (136-145)
[2018-12-03] MEDS ORDERED: PT OWN MED DRAWER 7, Y5N ONE (09:37)
[2018-12-03] MEDS ORDERED: REGADENOSON 0.4 MG/5 ML PRE-FILLED SYRINGE IVPUSH ONE ×2 (09:46→10:30)
--- NOTE | 2018-12-03 11:43 | PN ---
Progress Note, Physician Chief Complaint: Events noted Not in distress History of Present Illness: Patient was seen and examined. Awake and alert. Chart was reviewed Denies chest pain, SOB or palpitations - Current Medication List Current Medications: Active Medications Amlodipine Besylate (Norvasc -) 10 mg PO DAILY [facility] Last Admin: 12/03/18 08:07 Dose: 10 mg Carvedilol (Coreg Cr -) 40 mg PO DAILY [facility] Last Admin: 12/02/18 10:14 Dose: 40 mg Cholecalciferol (Vitamin D3 -) 1,000 unit PO DAILY [facility] Last Admin: 12/02/18 10:19 Dose: 1,000 unit Clopidogrel Bisulfate (Plavix -) 75 mg PO DAILY [facility] Last Admin: 12/02/18 10:19 Dose: 75 mg Ezetimibe (Zetia -) 10 mg PO DAILY [facility] Last Admin: 12/02/18 10:20 Dose: 10 mg Folic Acid (Folic Acid -) 1 mg PO DAILY [facility] Last Admin: 12/02/18 10:18 Dose: 1 mg Furosemide (Lasix -) 40 mg PO DAILY [facility] Last Admin: 12/01/18 09:26 Dose: 40 mg Insulin Aspart (Novolog Vial Sliding Scale -) 1 vial SQ TIDAC [facility]; Protocol Last Admin: 12/03/18 06:18 Dose: Not Given Insulin Detemir (Levemir Vial) 55 units SQ HS [facility] Last Admin: 12/02/18 21:50 Dose: Not Given Multivitamins/Minerals/Vitamin C (Tab-A-Vit -) 1 tab PO DAILY [facility] Last Admin: 12/02/18 10:19 Dose: 1 tab Pantoprazole Sodium (Protonix -) 40 mg PO DAILY [facility] Last Admin: 12/02/18 10:19 Dose: 40 mg Ranolazine (Ranexa -) 500 mg PO BID [facility] Last Admin: 12/02/18 21:49 Dose: 500 mg Valsartan (Diovan -) 320 mg PO DAILY [facility] Last Admin: 12/02/18 10:15 Dose: 320 mg - Objective Vital Signs: Vital Signs Temperature 97.5 F L 12/03/18 02:00 Pulse Rate 88 12/03/18 10:00 Respiratory Rate 18 12/03/18 10:00 Blood Pressure 153/61 12/03/18 10:00 O2 Sat by Pulse Oximetry (%) 96 12/02/18 21:00 Eyes: Yes: PERRL HENT: Yes: Atraumatic Neck: Yes: Supple Cardiovascular: Yes: Regular Rate and Rhythm, S1, S2 Respiratory: Yes: CTA Bilaterally Gastrointestinal: Yes: Normal Bowel Sounds, Soft. No: Tenderness Edema: No Additional Findings/Remarks: - Review of Systems Constitutional: denies: Chills, Fever Cardiovascular: reports: Chest Pain, Shortness of Breath. denies: Palpitations Respiratory: denies Cough, SOB. denies: Hemoptysis, Orthopnea, PND, SOB on Exertion Gastrointestinal: denies: Abdominal Pain, Constipation, Diarrhea, Melena, Nausea , Rectal Bleeding Genitourinary: denies: Dysuria, Hematuria Neurological: denies: Dizziness, Headache, Seizure, Syncope Labs: CBC, BMP 12/02/18 05:30 12/03/18 05:35 Problem List - Problems (1) Chest pain Code(s): R07.9 - CHEST PAIN, UNSPECIFIED Qualifiers: Chest pain type: unspecified Qualified Code(s): R07.9 - Chest pain, unspecified (2) CAD (coronary artery disease) Code(s): I25.10 - ATHSCL HEART DISEASE OF [place] CORONARY ARTERY W/O ANG PCTRS Qualifiers: Coronary Disease-Associated Artery/Lesion type: [place] artery [place] vs. transplanted heart: [place] heart Associated angina: without angina Qualified Code(s): I25.10 - Atherosclerotic heart disease of [place] coronary artery without angina pectoris (3) Diabetes Code(s): E11.9 - TYPE 2 DIABETES MELLITUS WITHOUT COMPLICATIONS Qualifiers: Diabetes mellitus type: type 2 Diabetes mellitus [facility] insulin use: without [facility] use Diabetes mellitus complication status: without complication Qualified Code(s): E11.9 - Type 2 diabetes mellitus without complications (4) HTN (hypertension) Code(s): I10 - ESSENTIAL (PRIMARY) HYPERTENSION Qualifiers: Hypertension type: essential hypertension Qualified Code(s): I10 - Essential (primary) hypertension (5) Hyperlipidemia Code(s): E78.5 - HYPERLIPIDEMIA, UNSPECIFIED Qualifiers: Hyperlipidemia type: pure hypercholesterolemia Qualified Code(s): E78.00 - Pure hypercholesterolemia, unspecified (6) Vasovagal syncope Code(s): R55 - SYNCOPE AND COLLAPSE Assessment/Plan 1. CAD status post PCI/REEMA, angina pectoris 2. 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 Hypertension 4. Diabetes mellitus 5. Hypercholesterolemia 6. Mitral valve regurgitation 7. History of pulmonary sarcoidosis 8. History of hepatits C 9. CKD 10. Hyponatremia 11. DJD 12. Anemia PLAN: 1. Continue Coreg CR 40 mg QD 2. Continue Margarita or equivalent (currently on Amlodipine 10 qd and Valsartan 320 qd) 3. Continue Ranexa 500 mg BID 4. Resume statins patient has been on Livalo, continue Zetia and Vascepa 5. Continue Plavix 75 mg QD 6. Agree with withholding diuretics/PO Lasix given hyponatremia 7. Pharmacologic Nuclear MPI today Further plans are to follow Humphrey Ramos MD
[2018-12-03] MEDS: VALSARTAN 160 MG TABLET (UD) PO SCH (11:53)
[2018-12-03] MEDS: FOLIC ACID 1 MG TABLET (FP) PO SCH (11:53)
[2018-12-03] MEDS: RANOLAZINE E.R. 500 MG TABLET (FP) PO SCH (11:53)
[2018-12-03] MEDS: CHOLECALCIFEROL (VIT D3) 1,000 UNIT (25 MCG) TABLET PO SCH (11:53)
[2018-12-03] MEDS: MULTIVITAMINS (DAILY MVI) TABLET (FP) PO SCH (11:53)
[2018-12-03] MEDS: CARVEDILOL PHOSPHATE CR 40 MG CAPSULE (FP) PO SCH (11:55)
[2018-12-03] MEDS: CLOPIDOGREL BISULFATE 75 MG TABLET (FP) PO SCH (11:56)
[2018-12-03] MEDS: PANTOPRAZOLE 40 MG TABLET (FP) PO SCH (11:57)
[2018-12-03] MEDS: EZETIMIBE 10 MG TABLET (FP) PO SCH (11:57)
--- NOTE | 2018-12-03 15:04 | CON.ORTH ---
Consult Reason for Consultation:: left shoulder/neck pain - Past Medical History Cardio/Vascular: Yes: CAD, HTN Pulmonary: Yes: Other (Sarcoidosis) Hepatobiliary: Yes: Hepatitis C ...: No Endocrine: Yes: Diabetes Mellitus - Alcohol/Substance Use Hx Alcohol Use: No - Smoking History Smoking history: Never smoked Have you smoked in the past 12 months: No Aproximately how many cigarettes per day: 0 - Social History ADL: Independent History of Recent Travel: No Home Medications - Allergies Allergies/Adverse Reactions: Allergies Allergy/AdvReac Type Severity Reaction Status Date / Time Penicillins Allergy Mild Difficulty Verified 03/28/17 19:24 Breathing - Home Medications Home Medications: Ambulatory Orders Amlodipine Bes/Olmesartan Med [Margarita 10-40 mg Tablet] 1 each PO DAILY 03/25/17 Carvedilol Phosphate [Coreg Cr -] 80 mg PO DAILY 03/25/17 Cholecalciferol (Vitamin D3) [Vitamin D3 -] 1,000 unit PO DAILY 03/25/17 Clopidogrel Bisulfate [Plavix -] 75 mg PO DAILY 03/25/17 Dexlansoprazole [Dexilant] 60 mg PO DAILY 03/25/17 Ezetimibe [Zetia] 10 mg PO DAILY 03/25/17 Folic Acid 1 mg PO DAILY 03/25/17 Furosemide [Lasix] 40 mg PO DAILY 03/25/17 Icosapent Ethyl [Vascepa] 2 tab PO BID 03/25/17 Insulin Glargine,Hum.rec.anlog [Lantus Solostar PEN -] 55 units SQ ACBK Insulin Regular, Human [Humulin R U-500 Kwikpen] 3 - 5 unit SQ TID 03/25/17 Mometasone Furoate 1 - 2 sprays NS DAILY 03/25/17 Multivitamins [Multivit ([facility] Formulary)] 1 tab PO DAILY 03/25/17 Pitavastatin Calcium [Livalo] 2 mg PO DAILY 03/25/17 Vitamin B Complex 1 each PO DAILY 03/25/17 hydrALAZINE HCL [Apresoline -] 50 mg PO TID 11/29/18 Family Disease History - Family Disease History Family Disease History: Heart Disease: Father Physical Exam for Ortho Vital Signs: Vital Signs Temperature 97.8 F 12/03/18 14:49 Pulse Rate 71 12/03/18 14:49 Respiratory Rate 20 12/03/18 14:49 Blood Pressure 120/48 L 12/03/18 14:49 O2 Sat by Pulse Oximetry (%) 96 12/02/18 21:00 Labs: CBC, BMP 12/02/18 05:30 12/03/18 05:35 INR, PTT INR 1.00 (0.83-1.09) 11/29/18 22:53 - Upper Extremity Shoulder: Yes: Left, Other (minimal ttp, full rom, + [place], - neer, -empty can , strength 5/5, nvi) Other Findings/Remarks: C-spine- + paraspinal ttp, decr rom, no radiculopathy, nvi Imaging - Results X-ray: Report Reviewed, Image Reviewed Assessment/Plan 78 y/o F with hx of CAD s/p 2 stents, HTN, DL, presented with arm pain that started at 10 am that is reproducible with palpation, patient stated that she is also getting winded with minimal exertion, denied any fever, chills, n/v/d, no palpitations, or LOC. c/o cervical and left shoulder pain. No injury or trauma. denies any numbness/tingling a/p- C-spine multi level DDD, left shoulder bursitis Pain stemming more from C-spine than Left shoulder PT eval ok to d/c from ortho pov f/u in the office in 10-14 days if no improvement consider injection into left shoulder/pain management eval d/w Dr. Love
--- NOTE | 2018-12-03 18:22 | DS ---
Physical Examination Vital Signs: Vital Signs Temperature 97.8 F 12/03/18 14:49 Pulse Rate 71 12/03/18 14:49 Respiratory Rate 20 12/03/18 14:49 Blood Pressure 120/48 L 12/03/18 14:49 O2 Sat by Pulse Oximetry (%) 96 12/02/18 21:00 Labs: CBC, BMP 12/02/18 05:30 12/03/18 05:35 Discharge Summary Reason For Visit: CHEST PAIN Current Active Problems Chest pain (Acute) Hospital Course: - Problems (1) Chest pain Assessment/Plan: -cardiology consult noted -recurrent cp-stress more laila 1 year -nuclear -tele monitoring -trop neg x 2 -cont plavix Code(s): R07.9 - CHEST PAIN, UNSPECIFIED Qualifiers: Chest pain type: unspecified Qualified Code(s): R07.9 - Chest pain, unspecified (2) CHRISTIANO (acute kidney injury) Assessment/Plan: -BUN/Cr /1.0 -cont to monitor renal trend Code(s): N17.9 - ACUTE KIDNEY FAILURE, UNSPECIFIED (3) CAD (coronary artery disease) Assessment/Plan: -continue plavix and statin Code(s): I25.10 - ATHSCL HEART DISEASE OF [place] CORONARY ARTERY W/O ANG PCTRS Qualifiers: Coronary Disease-Associated Artery/Lesion type: [place] artery [place] vs. transplanted heart: [place] heart Associated angina: without angina Qualified Code(s): I25.10 - Atherosclerotic heart disease of [place] coronary artery without angina pectoris (4) Diabetes Assessment/Plan: -BGM ACHS -ISS, Levemir -HgA1c Code(s): E11.9 - TYPE 2 DIABETES MELLITUS WITHOUT COMPLICATIONS Qualifiers: Diabetes mellitus type: type 2 Diabetes mellitus [facility] insulin use: without skilled nursing use Diabetes mellitus complication status: without complication Qualified Code(s): E11.9 - Type 2 diabetes mellitus without complications (5) HTN (hypertension) Assessment/Plan: -cont valsartan, amlodipine, hydralazine -low na diet Code(s): I10 - ESSENTIAL (PRIMARY) HYPERTENSION Qualifiers: Hypertension type: essential hypertension Qualified Code(s): I10 - Essential (primary) hypertension (6) Hyperlipidemia Assessment/Plan: -cont statin and zetia -lipid profile Code(s): E78.5 - HYPERLIPIDEMIA, UNSPECIFIED Qualifiers: Hyperlipidemia type: pure hypercholesterolemia Qualified Code(s): E78.00 - Pure hypercholesterolemia, unspecified (7) Hyponatremia Assessment/Plan: -renal consult -Na 135 -NS at 50cc/hr x 24hrs Code(s): E87.1 - HYPO-OSMOLALITY AND HYPONATREMIA (8) Shoulder Pain/Arm pain Assessment/Plan: -Xray DJD -Ortho noted Condition: Improved - Instructions Referrals: Nicholas Love MD [Staff Physician] - 2 Weeks Bridgette Farisa MD [Primary Care Provider] - 1 Week Disposition: HOME - Home Medications Comprehensive Discharge Medication List: Ambulatory Orders Amlodipine Bes/Olmesartan Med [Margarita 10-40 mg Tablet] 1 each PO DAILY 03/25/17 Cholecalciferol (Vitamin D3) [Vitamin D3 -] 1,000 unit PO DAILY 03/25/17 Clopidogrel Bisulfate [Plavix -] 75 mg PO DAILY 03/25/17 Dexlansoprazole [Dexilant] 60 mg PO DAILY 03/25/17 Ezetimibe [Zetia] 10 mg PO DAILY 03/25/17 Folic Acid 1 mg PO DAILY 03/25/17 Furosemide [Lasix] 40 mg PO DAILY 03/25/17 Icosapent Ethyl [Vascepa] 2 tab PO BID 03/25/17 Insulin Glargine,Hum.rec.anlog [Lantus Solostar PEN -] 55 units SQ ACBK Insulin Regular, Human [Humulin R U-500 Kwikpen] 3 - 5 unit SQ TID 03/25/17 Mometasone Furoate 1 - 2 sprays NS DAILY 03/25/17 Multivitamins [Multivit ([facility] Formulary)] 1 tab PO DAILY 03/25/17 Pitavastatin Calcium [Livalo] 2 mg PO DAILY 03/25/17 Vitamin B Complex 1 each PO DAILY 03/25/17 Carvedilol Phosphate [Coreg Cr -] 40 mg PO DAILY #30 capsule.sa 12/03/18 Ranolazine [Ranexa -] 500 mg PO BID #60 tab 12/03/18
[2018-12-03 20:24] VITALS: BP 140/53; PULSE 79; TEMP 98.8
== END 2018-12-03 20:04 | disposition home or self-care (01) | DRG 552 ==
LOC: JER 21:50 → JERBED 11-30 01:18 → J4W 11-30 04:23
PROVIDERS: ADMIT Internal Medicine; ATTEND Family Medicine
DX: M50.30 Other cervical disc degeneration, unspecified cervical region (principal); E87.1 Hypo-osmolality and hyponatremia; I13.0 Hypertensive heart and chronic kidney disease with heart failure and stage 1 through stage 4 chronic kidney disease, or unspecified chronic kidney disease; I50.30 Unspecified diastolic (congestive) heart failure; N17.9 Acute kidney failure, unspecified; M75.52 Bursitis of left shoulder; I25.10 Atherosclerotic heart disease of native coronary artery without angina pectoris; E11.22 Type 2 diabetes mellitus with diabetic chronic kidney disease; I10 Essential (primary) hypertension; D86.9 Sarcoidosis, unspecified; E78.5 Hyperlipidemia, unspecified; N18.9 Chronic kidney disease, unspecified; M79.602 Pain in left arm; D64.9 Anemia, unspecified; K29.70 Gastritis, unspecified, without bleeding; E04.1 Nontoxic single thyroid nodule; E05.90 Thyrotoxicosis, unspecified without thyrotoxic crisis or storm; I34.0 Nonrheumatic mitral (valve) insufficiency; M19.90 Unspecified osteoarthritis, unspecified site; Z95.5 Presence of coronary angioplasty implant and graft; Z86.19 Personal history of other infectious and parasitic diseases
CPT/HCPCS: 36415; 71045-TC-FY; 72050-TC-FY; 73030-TC-LT-FY; 78452-TC; 80048; 80053; 80061; 81003; 82533; 82550; 82962; 83036; 83721; 83930; 83935; 84300; 84443; 84484; 85025; 85027; 85610; 85730; 86850; 86900; 86901; 87086; 93005; 93010; 93017; 97116-GP; 97161-GP; 99282-25; A9502; J2785; J7030

== ENCOUNTER 2019-02-21 06:41 | Day surgery (SDC) | payer OTHER ==
[2019-02-21] MEDS ORDERED: DEXAMETHASONE SODIUM PHOSPHATE 8 MG in SODIUM CHLORIDE 50 ML IVPB ONE (09:00)
[2019-02-21] MEDS ORDERED: FERRIC CARBOXYMALTOSE 750 MG in SODIUM CHLORIDE 250 ML IVPB ONE (09:30)
[2019-02-21 09:59] LABS: BASO % 0.2 % (0-2.0); EOS % 1.4 % (0-4.5); HEMATOCRIT 30.2 % (32.4-45.2); HEMOGLOBIN 9.7 GM/dL (10.7-15.3); LYMPH % 19.5 % (8-40); MCH 26.2 pg (25.7-33.7); MCHC 32.3 g/dl (32.0-36.0); MEAN CELL VOLUME 81.3 fl (80-96); MONO % 7.8 % (3.8-10.2); NEUT % 71.1 % (42.8-82.8); PLATELET COUNT 304 K/MM3 (134-434); RBC 3.71 M/mm3 (3.60-5.2); RDW 16.2 % (11.6-15.6); WHITE BLOOD COUNT 6.6 K/mm3 (4.0-10.0)
[2019-02-21 10:49] LABS: ALBUMIN 3.7 g/dl (3.4-5.0); BILIRUBIN,TOTAL 0.2 mg/dL (0.2-1); BLOOD UREA NITROGEN 22.4 mg/dL (7-18); CALCIUM 9.2 mg/dL (8.5-10.1); MAGNESIUM 1.9 mg/dL (1.8-2.4); POTASSIUM 4.4 mmol/L (3.5-5.1); TOT PROT 7.4 g/dl (6.4-8.2)
[2019-02-21 14:29] VITALS: BP 155/55; PULSE 88; TEMP 98.3
[2019-02-23 04:07] LABS: SERUM IRON SATURATION 18 % (15-55); TOTAL IRON BINDING CAPACITY 317 ug/dL (250-450); UIBC 260 ug/dL (118-369)
== END 2019-02-21 13:10 | disposition home or self-care (01) ==
LOC: JONCNONCHE 06:41 → J7W 10:38 → JONCNONCHE 13:10
PROVIDERS: ATTEND Internal Medicine Hematology & Oncology
PROC: 3E033GC Introduction of Other Therapeutic Substance into Peripheral Vein, Percutaneous Approach (ICD-10-PCS; principal; 2019-02-21)
DX: D50.9 Iron deficiency anemia, unspecified (principal)
CPT/HCPCS: 36415; 80053; 82607; 82728; 83540; 83550; 83735; 85025; 96365; J1439

== ENCOUNTER 2019-02-28 06:48 | Day surgery (SDC) | payer OTHER ==
[2019-02-28] MEDS ORDERED: DEXAMETHASONE SODIUM PHOSPHATE 8 MG in SODIUM CHLORIDE 50 ML IVPB ONE (10:00)
[2019-02-28] MEDS ORDERED: FERRIC CARBOXYMALTOSE 750 MG in SODIUM CHLORIDE 250 ML IVPB ONE (10:15)
[2019-02-28] MEDS ORDERED: ACETAMINOPHEN 325 MG TABLET (FP) ONE (11:52)
[2019-02-28 14:16] VITALS: BP 137/58; PULSE 74; TEMP 97.5
== END 2019-02-28 12:30 | disposition home or self-care (01) ==
LOC: JONCNONCHE 06:48 → J7W 10:44 → JONCNONCHE 12:30
PROVIDERS: ATTEND Internal Medicine Hematology & Oncology
PROC: 3E033GC Introduction of Other Therapeutic Substance into Peripheral Vein, Percutaneous Approach (ICD-10-PCS; principal; 2019-02-28)
DX: D50.9 Iron deficiency anemia, unspecified (principal)
CPT/HCPCS: 96365; J1439

== ENCOUNTER 2020-06-17 21:08 | Inpatient (IN) | payer OTHER ==
--- OUTSIDE RECORDS SUMMARY | 2020-06-17 21:23 | XMS ---
:1940 Author Organization [facility] Care Team Providers Name Role Phone DAVIS MARSHALL Unavailable Unavailable NONI MENDIETA Unavailable Unavailable RASTAFARIANKAREN KENNEDY Unavailable Unavailable MD Madhav Major Unavailable Unavailable ROQUE SHELLEY Unavailable Unavailable SHIV YEH Unavailable Unavailable Re-disclosure Warning The records that you are about to access may contain information from federally- assisted alcohol or drug abuse programs. If such information is present, then the following federally mandated warning applies: This information has been disclosed to you from records protected by federal confidentiality rules (42 CFR part 2). The federal rules prohibit you from making any further disclosure of this information unless further disclosure is expressly permitted by the written consent of the person to whom it pertains or as otherwise permitted by 42 CFR part 2. A general authorization for the release of medical or other information is NOT sufficient for this purpose. The Federal rules restrict any use of the information to criminally investigate or prosecute any alcohol or drug abuse patient.The records that you are about to access may contain highly sensitive health information, the redisclosure of which is protected by Article 27-F of the [place] State Public Health law. If you continue you may haveaccess to information: Regarding HIV / AIDS; Provided by facilities licensed or operated by the [facility] Office of Mental Health; or Provided by the [facility] Office for People With Developmental Disabilities. If such information is present, then the following [facility] mandated warning applies: This information has been disclosed to you from confidential records which are protected by state law. State law prohibits you from making any further disclosure of this information without the specific written consent of the person to whom it pertains, or as otherwise permitted by law. Any unauthorized further disclosure in violation of state law may result in a fine or alf sentence or both. A general authorization for the release of medical or other information is NOT sufficient authorization for further disclosure. Encounters Encounter Providers Location Date Indications Data Source(s ) Outpatient Attender: KARSTEN 04/02/2020 Z03.818 [facility] ROQUE aOkleyAdmitter: 06:00:00 Health Care ROQUE SHELLEY [facility] Corporatio n E.Referrer: ROQUE SHELLEY Z03.818 Outpatient Attender: RAO, 07/24/2019 06:00:00 R22.2 [facility] GRIGORYAttender: CHARLOTTE MARSHALL [facility] TRACEYAdmitter: David MARSHALL TRACEYReferrer: DAVIS MARSHALL R22.2 S Attender: MD Corey ICU-AMB SURG 07/18/2019 02:00:00 LUMBAR RADICULAR S - [facility] [place] PM EST - 07/18/2019 [place] 03:35:00 PM [facility] Hospital LUMBAR RADICULAR PAIN Patient discharged. S Attender: MD Corey ICU-AMB SURG 07/17/2019 09:41:51 LUMBAR RADICULAR [facility] [place] AM EST - 07/18/2019 [place] 03:35:00 PM [facility] LUMBAR RADICULAR PAIN Patient discharged. Outpatient Attender: RASTAFARIAN, 07/03/2019 09:24:00 R22.2 [facility] HUMAYUNAdmitter: CHARLOTTE CARMEN [facility] HUMAYUNReferrer: Fred MARSHALL R22.2 Outpatient Attender: ANAM, 05/14/2019 08:07:00 D50.0 [facility] EDWARDAdmitter: CHARLOTTE MENDIETA Critical access hospital EDWARDReferrer: Fred MENDIETA [place] D50.0 Outpatient Attender: ANAM, 05/14/2019 06:00:00 D50.0 [facility] EDWARDAdmitter: CHARLOTTE MENDIETA Critical access hospital EDWARDReferrer: Fred MENDIETA [place] D50.0 Insurance Providers Payer name Policy type Policy ID Covered Covered green party's Policy P radha / Coverage green party ID relationship to [facility] type [facility] MEDICAID [id number] SP [id number] MEDICARE [id number] SP [id number] Medicare Part Medicare [id number] B Outpatient 8 Medicaid Medicaid [id number] Medicare Part Medicare [id number] 1 [id number] A 8 MEDICAID [id number] SP [id number] MEDICARE [id number] SP [id number] M Medicare Part Medicare [id number] A Part A 8 Medicare Part Medicare [id number] A Part A 8 Medicare Part 18 [id number] A 8 Medicare Part Medicare [id number] B Outpatient MEDICAID [id number] MEDICARE PT B [id number] O/P Problems, Conditions, and Diagnoses Code Display Name Description Problem Type Effective Data Sour ce(s) Dates Z03.818 Encounter for ENCNTR FOR OBS FOR Diagnosis 04/02/2020 [facility] observation for SUSP EXPSR TO OTH 06:00:00 AM [facility] suspected exposure BIOLG AGENTS RULED EDT Care to other biological OUT Corpo ration agents ruled out 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 019 [place] use of insulin USE OF INSULIN 06:00:00 AM [facility] [place] M06.9 Rheumatoid RHEUMATOID Diagnosis 07/24/2019 [place] arthritis, ARTHRITIS, 06:00:00 AM [facility] unspecified UNSPECIFIED EST Care [place] M48.00 Spinal stenosis, SPINAL STENOSIS, Diagnosis 07/24/2019 [facility] unspecified SITE UNSPECIFIED 06:00:00 AM [facility] [place] Z95.5 Presence of PRESENCE OF Diagnosis 07/24/2019 [place] coronary CORONARY 06:00:00 AM [facility] angioplasty implant ANGIOPLASTY IMPLANT EST Care and graft [employer] I25.10 Atherosclerotic ATHSCL HEART Diagnosis 07/24/2019 [facility] heart disease of DISEASE OF [place] TRIBE 06:00:00 AM [facility] [place] coronary CORONARY ARTERY W/O EST Care artery without ANG PCTRS Corporatio n angina pectoris B19.20 Unspecified viral UNSPECIFIED VIRAL Diagnosis 07/24/2019 [place] hepatitis C without HEPATITIS C WITHOUT 06:00:0 0 AM [facility] hepatic coma HEPATIC COMA [facility] Care Corporation I10 Essential (primary) ESSENTIAL (PRIMARY) Diagnosis 019 [place] hypertension HYPERTENSION 06:00:00 AM [facility] He alth EST Care Corporation E11.9 Type 2 diabetes TYPE 2 DIABETES Diagnosis 07/24/2019 [place] mellitus without MELLITUS WITHOUT 06:00:00 AM [facility] complications COMPLICATIONS EST Care Corporation D86.9 Sarcoidosis, SARCOIDOSIS, Diagnosis 07/24/2019 [facility] r unspecified UNSPECIFIED 06:00:00 AM [facility] th EST Care Corporation 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 [place] connective and CONNECTIVE AND OTH 06:00:00 AM [facility] other soft tissue SOFT TISSUE OF EST Car e of thorax [employer] R22.2 Localized swelling, LOCALIZED SWELLING, Diagnosis 019 [place] mass and lump, MASS AND LUMP, 06:00:00 AM [facility] trunk TRUNK EST Care [facility] M48.062 Spinal stenosis, Spinal stenosis of Diagnosis 07/18/2019 [facility] - New lumbar region with lumbar region with 02:00:00 PM [place] neurogenic neurogenic [facility] claudication claudication M79.604 Pain in right leg Pain of right lower Diagnosis 9 [facility] - New extremity 02:00:00 PM [facility] M47.26 Other spondylosis Other spondylosis Diagnosis 07/18/2019 [facility] - New with radiculopathy, with radiculopathy, 02:00:0 0 PM [place] lumbar region lumbar region [facility] Hospital LUMBAR RADICULAR LUMBAR RADICULAR Diagnosis 07/18/2019 MH S - New PAIN PAIN 02:00:00 PM [facility] M54.5 Low back pain Low back pain Diagnosis 07/18/2019 S - Ne w 02:00:00 PM [facility] 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 07/18/2019 S - New use of long-term use of 02:00:00 PM [facility] antithrombotics/ant antiplatelets/antit EST Hospital iplatelets hrombotics [id number] Injection(s), of Injection(s), of Diagnosis 07/18/2019 S - New diagnostic or diagnostic or 02:00:00 PM [facility] therapeutic therapeutic [facility] Hospital substance(s) (eg, substance(s) (eg, anesthetic, anesthetic, antispasmodic, antispasmodic, opioid, steroid, opioid, steroid, other solution), other solution), not including not including neurolytic neurolytic substances, substances, including needle or including needle or catheter placement, catheter placement, interlaminar interlaminar epidural or epidural or subarachnoid, subarachnoid, lumbar or sacral lumbar or sacral I25.10 Atherosclerotic Atherosclerosis of Diagnosis 07/18/2019 M HS - New heart disease of [place] coronary 02:00:00 PM Ro leslie [place] coronary artery without EST Hospi jessica artery without angina pectoris angina pectoris K21.9 Gastro-esophageal GASTRO-ESOPHAGEAL Diagnosis 05/14/2019 [place] reflux disease REFLUX DISEASE 08:07:00 AM [facility] without esophagitis WITHOUT ESOPHAGITIS [facility] [employer] D50.9 Iron deficiency IRON DEFICIENCY Diagnosis 05/14/2019 [place] anemia, unspecified ANEMIA, UNSPECIFIED 08:07:0 0 AM [facility] P[facility] Surgeries/Procedures Procedure Description Date Indications Data Source(s) XR Fluoroguide For 07/18/2019 Spot Influence Spine Inject XR 03:24:00 PM EST System Fluoroguide For Spine - 07/18/2019 Inject 03:24:00 PM EST Results ID Date Data Source [id number] 04/04/2020 12:00:00 AM EDT [facility] [place] Name Value Range Interpretation Code Description Data Pippa rce(s) Supporting Document(s ) SARS-COV-2 [place] RNA RT-PCR [facility] This lab was ordered by [facility] and reported by [facility]. ID Date Data Source [id number] 01/10/2019 09:46:20 AM EDT [facility] Raghavendra zazueta System Name Value Range Interpretation Description Data Sup porting Code Source(s) Document(s ) Type B Normal (applies Type [facility] to non-numeric Health results) System AntibodyScreen Negative Normal (applies Antibody [facility] to non-numeric Screen Health results) System D Ab [Titer] in Positive Normal (applies Rh [facility] Serum or Plasma to non-numeric Health results) System ID Date Data Source [id number] 01/17/2019 12:26:52 PM EDT [facility] pre-op Name Value Range Interpretation Description Data Sup porting Code Source(s) Document(s ) D Ab [Titer] in Positive Normal (applies Rh [facility] Serum or Plasma to non-numeric Health results) System Type B Normal (applies Type [facility] to non-numeric Health results) System AntibodyScreen Negative Normal (applies Antibody [facility] to non-numeric Screen Health results) System ID Date Data Source [id number] 08/18/2019 05:07:54 PM EST [facility] Name Value Range Interpretation Description Data Sup porting Code Source(s) Document(s ) TissueExam Results for case # Normal (applies Tissue Exam [facility] [id number] to non-numeric Health SURGICAL PATHOLOGY results) System REPORTCLINICAL INFORMATION: Right knee osteoarthritis. PREOPERATIVE DIAGNOSIS: Same. POSTOPERATIVE DIAGNOSIS: Same. FINAL DIAGNOSIS: Joint, right knee, total knee replacement:Degene rative joint disease.DJ/Maxi LAUREN MDElectronically Signed By: GROSS DESCRIPTION: In formalin, labeled "right knee, bone and tissue", the specimen consists of a 6 x 6 x 1.5cm aggregate of multiple, shea yellow, smoothly amputated portions of articular bone. The specimen is grossly consistent with tibial plateau and corresponding femoral condyles. There is erosion and osteophyte growth. Location Manager sections are submitted following decalcification in one cassette.MV/stPage 1 of 1 ID Date Data Source [id number] 01/18/2019 06:09:00 AM EDT [facility] Name Value Range Interpretation Description Data Sup porting Code Source(s) Document(s ) Erythrocytes 3.52 Below low normal RBC Count [facility] [#/volume] in {10^6_uL Health Blood by } System Automated count Leukocytes 9.7 Normal (applies WBC Count [facility] [#/volume] in {10^3_uL to non-numeric Health Unspecified } results) System specimen by Automated count Erythrocyte mean 31.6 Normal (applies MCHC [facility] corpuscular {gm/dL} to non-numeric Health hemoglobin results) System concentration [Mass/volume] by Automated count Hemoglobin 9.4 Below low normal Hemoglobin [facility] [Mass/volume] in {gm/dL} Health Blood System Erythrocyte mean 84.4 fl Normal (applies MCV [facility] corpuscular to non-numeric Health volume [Entitic results) System volume] by Automated count Erythrocyte mean 26.7 pg Below low normal MCH [facility] corpuscular Health hemoglobin System [Entitic mass] by Automated count Hematocrit 29.7 % Below low normal Hematocrit [facility] [Volume Health Fraction] of System Blood Nucleated 0.0 Normal (applies NRBC % [facility] erythrocytes {/100_WB to non-numeric Health [#/volume] in C} results) System Body fluid Erythrocyte 15.6 % Above high normal RDW-CV [facility] distribution Health width [Entitic System volume] by Automated count Platelet mean 10.7 fl Normal (applies MPV [facility] volume [Entitic to non-numeric Health volume] in Blood results) System by Automated count Platelets 227 Normal (applies Platelet [facility] [#/volume] in {10^3_uL to non-numeric Count Health Plasma by } results) System Automated count NRBC# 0.00 Normal (applies NRBC # [facility] {10^3_uL to non-numeric Health } results) System ID Date Data Source [id number] 01/18/2019 06:09:00 AM EDT [facility] System Once Name Value Range Interpretation Description Data Sup porting Code Source(s) Document(s ) Chloride 101 Normal (applies Chloride, [facility] [Moles/volume mmol/L to non-numeric Serum Health Syst em ] in Serum or results) Plasma Sodium 133 Below low normal Sodium, Serum [facility] [Moles/volume mmol/L Health System ] in Serum or Plasma Potassium 5.4 Above high normal Potassium, [facility] [Mass/volume] mmol/L [facility] Health System in Serum or Plasma Carbon 23.9 Normal (applies CO2, Serum [facility] dioxide, mmol/L to non-numeric Health System total results) [Moles/volume ] in Serum or Plasma Creatinine 1.11 Normal (applies Creatinine, [facility] [Mass/volume] mg/dl to non-numeric Serum Health Syst em in Serum or results) Plasma Urea nitrogen 37 mg/dl Above high normal Blood Urea [facility] [Mass/volume] Nitrogen, Health System in Serum or Serum Plasma Glucose 220 Above high normal Glucose, Serum [facility] [Mass/volume] mg/dL Health System in Serum or Plasma Anion gap in 8.10 Normal (applies Anion Gap [facility] Serum or mmol/L to non-numeric Health System Plasma results) Calcium 8.9 Normal (applies Calcium, Total [facility] [Mass/volume] mg/dl to non-numeric Serum Health Syst em in Serum or results) Plasma ID Date Data Source [id number] 01/19/2019 06:07:00 AM EDT [facility] Once Name Value Range Interpretation Description Data Sup porting Code Source(s) Document(s ) Potassium 5.4 Above high normal Potassium, [facility] [Mass/volume] mmol/L [facility] System in Serum or Plasma Sodium 132 Below low normal Sodium, Serum [facility] [Moles/volume mmol/L Health System ] in Serum or Plasma Chloride 100 Below low normal Chloride, [facility] [Moles/volume mmol/L [facility] System ] in Serum or Plasma Creatinine 1.15 Normal (applies Creatinine, [facility] [Mass/volume] mg/dl to non-numeric Serum Health Syst em in Serum or results) Plasma Carbon 25.8 Normal (applies CO2, Serum [facility] dioxide, mmol/L to non-numeric Health System total results) [Moles/volume ] in Serum or Plasma Glucose 141 Above high normal Glucose, Serum [facility] [Mass/volume] mg/dL Health System in Serum or Plasma Urea nitrogen 39 mg/dl Above high normal Blood Urea [facility] [Mass/volume] Nitrogen, Health System in Serum or Serum Plasma Calcium 8.6 Normal (applies Calcium, Total [facility] [Mass/volume] mg/dl to non-numeric Serum Health Syst em in Serum or results) Plasma Anion gap in 6.20 Normal (applies Anion Gap [facility] Serum or mmol/L to non-numeric Health System Plasma results) ID Date Data Source [id number] 01/20/2019 05:55:00 AM EDT [facility] Once Name Value Range Interpretation Description Data Sup porting Code Source(s) Document(s ) Sodium 130 Below low normal Sodium, Serum [facility] [Moles/volume mmol/L Health System ] in Serum or Plasma Chloride 98 Below low normal Chloride, [facility] [Moles/volume mmol/L [facility] System ] in Serum or Plasma Potassium 5.5 Above high normal Potassium, [facility] [Mass/volume] mmol/L [facility] System in Serum or Plasma Carbon 27.4 Normal (applies CO2, Serum [facility] dioxide, mmol/L to non-numeric Health System total results) [Moles/volume ] in Serum or Plasma Calcium 8.7 Normal (applies Calcium, Total [facility] [Mass/volume] mg/dl to non-numeric Serum Health Syst em in Serum or results) Plasma Creatinine 1.06 Normal (applies Creatinine, [facility] [Mass/volume] mg/dl to non-numeric Serum Health Syst em in Serum or results) Plasma Glucose 150 Above high normal Glucose, Serum [facility] [Mass/volume] mg/dL Health System in Serum or Plasma Urea nitrogen 34 mg/dl Above high normal Blood Urea [facility] [Mass/volume] Nitrogen, Health System in Serum or Serum Plasma Anion gap in 4.60 Normal (applies Anion Gap [facility] Serum or mmol/L to non-numeric Health System Plasma results) ID Date Data Source [id number] 07/18/2019 03:24:00 PM [facility] Fluoroscopy up to 1 hour performed on 07/18/2019 3:25 PM for patient female of 78 yearsCLINICAL INFORMATION: Visit reason: Pain management;TECHNIQUE: Fluoroscopy was provided.Total time of f luoroscopic exposure for the patient during this examination was 11 seconds.FINDINGS : Atotal of 2 spot images of the lumbar region were obtained to document fluoros copy. IMPRESSION:Fluoroscopy provided Name Value Range Interpretation Code Description Data Pippa rce(s) Supporting Document(s ) Procedure
--- NOTE | 2020-06-17 21:49 | PDOC ---
History of Present Illness - General Chief Complaint: Cold Symptoms Stated Complaint: FEVER Time Seen by Provider: 06/17/20 21:45 - History of Present Illness Initial Comments: 06/17/20 21:48 HPI: 79 y/o F with hx of CAD (w/ stents, on plavix), HTN, sarcoidosis, Hep C (s/p treatment) and DM presenting with fever of 101.5 in the setting of fatigue and cough. Symptoms started yesterday; pateint started developing cough productive of yello/clear sputum in association with body aches, fatigue, and decreased appetite. Today her symptoms worsened and she called her PCP Dr Mann [place] who prescribed cefdinir. This evening 3hrs prior to arrival she developed a temp 101.5 that improved with tylenol. She denies cp, SOB, abd pain, n/v, dysuria, sick contacts. PMHx: as noted above ROS: as noted SHx: Denies tobacco use; no alcohol use; no rec drugs Allergies: NKDA ROS: GENERAL/CONSTITUTIONAL: +fever and gen weakness. HEAD, EYES, EARS, NOSE AND THROAT: No change in vision. No ear pain or discharge. No sore throat. CARDIOVASCULAR: No chest pain or shortness of breath RESPIRATORY: +cough; no wheezing, or hemoptysis. GASTROINTESTINAL: No nausea, vomiting, diarrhea or constipation. GENITOURINARY: No dysuria, frequency, or change in urination. MUSCULOSKELETAL: No joint or muscle swelling or pain. No neck or back pain. SKIN: No rash NEUROLOGIC: No headache, vertigo, loss of consciousness, or change in strength/sensation. ENDOCRINE: No increased thirst. No abnormal weight change HEMATOLOGIC/LYMPHATIC: No anemia, easy bleeding, or history of blood clots. ALLERGIC/IMMUNOLOGIC: No hives or skin allergy. PE: GENERAL: Awake, alert, and fully oriented, no acute distress HEAD: No signs of trauma, normocephalic, atraumatic EYES: EOMI, sclera anicteric, conjunctiva clear ENT: Auricles normal inspection, hearing grossly normal, nares patent, oropharynx clear without exudates. Moist mucosa NECK: Normal ROM, no lymphadenopathy LUNGS: No increased work of breathing, symmetrical chest rise, right lower lobe wheezing HEART: Regular rate, regular rhythm, normal S1 and S2, no murmur, peripheral pulses 2+ and equal bilaterally. ABDOMEN: Soft, nondistended, nontender. No guarding, no rebound. No masses. No CVAT MUSCULOSKELETAL: FROM NEUROLOGICAL: Cranial nerves II through XII grossly intact. Normal speech, stable gait, no focal sensorimotor deficits SKIN: Warm, Dry, normal turgor, no rashes or lesions noted Past History - Medical History Allergies/Adverse Reactions: Allergies Allergy/AdvReac Type Severity Reaction Status Date / Time Penicillins Allergy Mild Difficulty Verified 03/28/17 19:24 Breathing Home Medications: Ambulatory Orders Albuterol Sulfate [Proair Hfa] 8.5 gm IH Q4HWA PRN 06/18/20 Allopurinol [Zyloprim -] 100 mg PO DAILY 06/18/20 Amlodipine Bes/Olmesartan Med [Margarita 10-40 mg Tablet] 1 each PO DAILY 06/18/20 Aspirin 81 mg PO DAILY 06/18/20 Carvedilol Phosphate [Coreg Cr -] 80 mg PO DAILY 06/18/20 Cholecalciferol (Vitamin D3) [Vitamin D3 -] 1,000 unit PO DAILY 06/18/20 Clopidogrel Bisulfate [Plavix] 75 mg PO DAILY 06/18/20 Dexlansoprazole [Dexilant] 60 mg PO DAILY 06/18/20 Ezetimibe [Zetia -] 10 mg PO DAILY 06/18/20 Folic Acid 1 mg PO DAILY 06/18/20 Furosemide [Lasix] 40 mg PO DAILY 06/18/20 Icosapent Ethyl [Vascepa] 2 gm PO BID 06/18/20 Insulin Detemir [Levemir Flextouch] 06/18/20 Insulin Glargine,Hum.rec.anlog [Basaglar Kwikpen U-100] 50 unit SQ DAILY 06/18/20 Multivitamin [Multiple Vitamins] 1 each PO DAILY 06/18/20 Pitavastatin Calcium [Livalo] 4 mg PO DAILY 06/18/20 Plecanatide [Trulance] 3 mg PO DAILY 06/18/20 Vitamin B Complex 1 each PO DAILY 06/18/20 hydrALAZINE HCL [Apresoline -] 50 mg PO TID 06/18/20 Anemia: Yes Asthma: Yes Cancer: No Cardiac Disorders: Yes (CAD) CVA: No COPD: No CHF: Yes Diabetes: Yes GI Disorders: Yes (GASTRITIS) Disorders: No HTN: Yes Hypercholesterolemia: Yes Liver Disease: Yes (hepatitis c) Seizures: No Thyroid Disease: Yes (HYPERTHYROIDISM-LOBE NODULE) - Surgical History Abdominal Surgery: No Appendectomy: Yes (COLONOSCOPY) Cardiac Surgery: Yes (2 stents) Cholecystectomy: No Lung Surgery: Yes (sarcoidosis) Neurologic Surgery: No Orthopedic Surgery: Yes (NECK) - Immunization History Td Vaccination: Yes TDAP Vaccination: Yes Immunization Up to Date: Yes - Psycho-Social/Smoking History Smoking Status: No Smoking History: Never smoked Have you smoked in the past 12 months: No Number of Cigarettes Smoked Daily: 0 - Substance Abuse Hx (Audit-C & DAST Scrn) How often the patient has a drink containing alcohol: Never Score: In Men: 4 or > Positive; In Women: 3 or > Positive: 0 Screen Result (Pos requires Nsg. Audit-10AR): Negative In the last yr the pt used illegal drug/Rx for NonMed reason: No Score: Yes response is considered Positive: 0 Screen Result (Positive result requires Nsg. DAST-10): Negative *Physical Exam - Vital Signs Last Vital Signs Temp Pulse Resp BP Pulse Ox 99.7 F H 82 19 137/47 L 95 06/17/20 21:11 06/17/20 21:11 06/17/20 21:11 06/17/20 21:11 06/17/20 21:11 ED Treatment Course - LABORATORY CBC & Chemistry Diagram: 06/17/20 22:21 06/17/20 22:21 Medical Decision Making - Medical Decision Making 06/18/20 02:25 79 y/o F with hx of CAD (w/ stents, on plavix), HTN, sarcoidosis, Hep C (s/p treatment) and DM presenting with fever of 101.5 in the setting of fatigue and cough as well as decreased appetite. VSS, AF O2 93-96% on RA. PE with right lower love wheeze. DDx includes covid, pna, chf, viral syndrome, flu -cbc, cmp, coags, card prof, ekg, cxr, bcx -ofirmev 06/18/20 02:27 cxr with RLL pna wbc 11.4 BUN 19.6 CURB 65 with moderate score given variable sats and mdoerate curb score will admit for obs and iv abx; family aggreable will give azithro and ceftr 2L NC admitted to dr lion Discharge - Discharge Information Problems reviewed: Yes Clinical Impression/Diagnosis: Pneumonia Condition: Stable - Follow up/Referral - Patient Discharge Instructions - Post Discharge Activity
[2020-06-17] MEDS ORDERED: ACETAMINOPHEN 1000 MG/100 ML VIAL (NON FORMULARY) IVPB ONE (21:56)
[2020-06-17] MEDS ORDERED: SODIUM CHLORIDE 500 ML IV STA (21:56)
[2020-06-17] MEDS ORDERED: ACETAMINOPHEN INJECTION 100 ML IVPB ONE (21:58)
--- NOTE | 2020-06-17 21:59 | PDOC ---
Attending Attestation - Resident Resident Name: Elin Kirby - ED Attending Attestation I have performed the following: I have examined & evaluated the patient, The case was reviewed & discussed with the resident, I agree w/resident's findings & plan, Exceptions are as noted - HPI HPI: 06/17/20 21:58 79F flu shot 6days ago here with a day fever to 101F, productive cough See resident HPI - Physicial Exam PE: 06/18/20 04:44 Agree with documented exam - Medical Decision Making 06/18/20 04:44 uri? pna viral vs bacteria, consider covid f/u labs, cxr, ekg dispo per clinical course Discharge - Discharge Information Problems reviewed: Yes Clinical Impression/Diagnosis: Pneumonia Condition: Stable - Follow up/Referral - Patient Discharge Instructions - Post Discharge Activity
[2020-06-17 22:32] LABS: BASO % 0.8 % (0-2.0); HEMATOCRIT 34.7 % (32.4-45.2); HEMOGLOBIN 11.4 GM/dL (10.7-15.3); LYMPH % 7.4 % (8-40); MCH 26.4 pg (25.7-33.7); MEAN CELL VOLUME 80.1 fl (80-96); MEAN PLT VOLUME 7.4 fl (7.5-11.1); MONO % 5.1 % (3.8-10.2); NEUT % 85.7 % (42.8-82.8); PLATELET COUNT 192 K/MM3 (134-434); RBC 4.33 M/mm3 (3.60-5.2); WHITE BLOOD COUNT 11.4 K/mm3 (4.0-10.0)
[2020-06-17 22:45] LABS: INR 1.18 (0.83-1.09)
[2020-06-17 23:15] LABS: ALBUMIN 3.6 g/dl (3.4-5.0); ALK PHOS 38 U/L (45-117); ANION GAP 9 MMOL/L (8-16); BILIRUBIN,TOTAL 0.4 mg/dL (0.2-1); BLOOD UREA NITROGEN 19.6 mg/dL (7-18); CALCIUM 8.6 mg/dL (8.5-10.1); CHLORIDE 102 mmol/L (98-107); CO2 26 mmol/L (21-32); GLUCOSE,RANDOM 117 mg/dL (74-106); POTASSIUM 4.1 mmol/L (3.5-5.1); SGOT/AST 16 U/L (15-37); SGPT/ALT 22 U/L (13-61); SODIUM 137 mmol/L (136-145); TOT PROT 7.3 g/dl (6.4-8.2)
[2020-06-17] MEDS ORDERED: AZITHROMYCIN IVPB 500 MG in DEXTROSE 5%-WATER - 250 ML IVPB ONE (23:54)
[2020-06-17] MEDS ORDERED: CEFTRIAXONE 1 GM in DEXTROSE 5%-WATER - 100 ML IVPB ONE (23:54)
[2020-06-18] MEDS ORDERED: cefTRIAXone SODIUM 1 GM VIAL ONE (00:12)
[2020-06-18] MEDS ORDERED: AZITHROMYCIN IVPB 500 MG/250 ML BAG IVPB ONE (00:13)
--- NOTE | 2020-06-18 00:37 | PN ---
Teaching Attending Note Name of Resident: René Perry ATTENDING PHYSICIAN STATEMENT I saw and evaluated the patient. I reviewed the resident's note and discussed the case with the resident. I agree with the resident's findings and plan as documented. SUBJECTIVE: Patient is an 79 year old woman with a PMH of Penicillin allergy, CAD (s/p 2 stents; on Plavix), HTN, Sarcoidosis, Hepatitis C disease (treated with Harvoni -2014), HLD, NIDDM and Thyroid nodule who got a Flu vaccine 6 days ago and now presents with a day fever to 101F and productive cough. On Cefdinir started by her PCP. Patient denies chills, night sweats, headache, vision change, chest pain, palpitations, SOB,leg swelling, abdominal pain, nausea, vomiting, diarrhea, constipation, dysuria, hematuria, BPR or lightheadedness. Denies alcohol, tobacco or illicit drug use. No sick contacts or recent travels. Family history is unremarkable. OBJECTIVE: Alert Vital Signs Period Temp Pulse Resp BP Sys/Nash Pulse Ox Last 24 Hr 99.7 F 82 19 137/47 95 HEENT: No Jaundice, eye redness or discharge, PERRLA, EOMI. Normocephalic, atraumatic. External ears are normal and hearing is grossly intact. No nasal discharge. Neck: Supple, nontender. No palpable adenopathy or thyromegaly. No JVD Chest: Good effort. Clear to auscultation and percussion. Heart: Regular. No S3, rub or murmur Abdomen: Not distended, soft, nontender and no HSM. No rebound or guarding. Normal bowel sounds. Ext: Peripheral pulses intact. No leg edema. Skin: Warm and dry. No petechiae, rash or ecchymosis. Neuro: Alert. Oriented x3. CN 2-12 grossly intact. Sensation grossly intact in all four extremities and DTR are symmetric. Psych: Appropriate mood and affect. Good insight. Home Medications Medication Instructions Recorded Albuterol Sulfate [Proair Hfa] 8.5 gm IH Q4HWA PRN 06/18/20 Allopurinol [Zyloprim -] 100 mg PO DAILY 06/18/20 Amlodipine Bes/Olmesartan Med 1 each PO DAILY 06/18/20 [Margarita 10-40 mg Tablet] Aspirin 81 mg PO DAILY 06/18/20 Carvedilol Phosphate [Coreg Cr -] 80 mg PO DAILY 06/18/20 Cholecalciferol (Vitamin D3) 1,000 unit PO DAILY 06/18/20 [Vitamin D3 -] Clopidogrel Bisulfate [Plavix] 75 mg PO DAILY 06/18/20 Dexlansoprazole [Dexilant] 60 mg PO DAILY 06/18/20 Ezetimibe [Zetia -] 10 mg PO DAILY 06/18/20 Folic Acid 1 mg PO DAILY 06/18/20 Furosemide [Lasix] 40 mg PO DAILY 06/18/20 Icosapent Ethyl [Vascepa] 2 gm PO BID 06/18/20 Insulin Detemir [Levemir Flextouch] 06/18/20 Insulin Glargine,Hum.rec.anlog 50 unit SQ DAILY 06/18/20 [Basaglar Kwikpen U-100] Multivitamin [Multiple Vitamins] 1 each PO DAILY 06/18/20 Pitavastatin Calcium [Livalo] 4 mg PO DAILY 06/18/20 Plecanatide [Trulance] 3 mg PO DAILY 06/18/20 Vitamin B Complex 1 each PO DAILY 06/18/20 hydrALAZINE HCL [Apresoline -] 50 mg PO TID 06/18/20 Abnormal Lab Results 06/17/20 06/17/20 06/17/20 22:21 22:21 22:21 WBC 11.4 H MPV 7.4 L Absolute Neuts (auto) 9.8 H Neutrophils % 85.7 H D Lymphocytes % 7.4 L D PT with INR 14.00 H INR 1.18 H BUN 19.6 H Random Glucose 117 H Alkaline Phosphatase 38 L Current Medications Generic Name Dose Route Start Last Admin Trade Name Freq PRN Reason Stop Dose Admin Enoxaparin Sodium 40 mg 06/18/20 10:00 Lovenox - SQ DAILY LISA Levofloxacin 750 mg in 150 mls @ 100 mls/hr 06/18/20 10:00 Levaquin 750 Mg Premixed Ivpb - IVPB 06/18/20 11:29 ONCE ONE Protocol Insulin Aspart 1 vial 06/18/20 07:00 Novolog Vial Sliding Scale - SQ ACHS LISA Protocol ASSESSMENT AND PLAN: 1. Atypical pneumonia/?Tracheobronchitis/Rule out COVID-19 infection - CXR shows cardiomegaly with increased interstitial markings (chronic) and calcified aortic knob. Flu swab was negative. Oxygen saturation was 92% on room air. Viral testing for COVID-19 ordered and patient placed on airborne, droplet and contact isolation. Started on supplemental oxygen via nasal cannula. Will get a chest CT, inflammatory markers, treat with IV Levofloxacin, avoid aggressive hydration pending ECHO, send sputum for culture, get urinalysis, send blood culture and consult ID/Pulmonary. EKG is pending. Will continue comprehensive care for all of patients comorbid conditions including Plavix for cardiac stents. 2. DM For now, we will hold the home diabetes drugs and implement sliding scale insulin regimen. Provide comprehensive diabetes care with patient teaching and counseling about the importance of adherence to prescribed diabetes regimen, euglycemia, eye care and foot care. 3. Obesity Counseled on the risks associated with obesity. Will provide patient all the necessary assistance, counseling and positive reinforcement to facilitate weight loss. Consult burr sander. 4. Hypertension Will restart suitable outpatient antihypertensive drugs when clinically appropriate. Subsequently, will revise regimen to ensure dypug-hyc-gfthn excellent BP control. Patient counseled on the injurious effects of uncontrolled hypertension. Nonpharmacologic measures to control hypertension like weight loss, salt restriction and exercise stressed. Importance of adherence to treatment regimen and attainment of normotension emphasized. 5. DVT prophylaxis - Lovenox 40 mg SQ q 24 hours. 6. Advance directives - Full code
--- NOTE | 2020-06-18 00:52 | HP ---
CHIEF COMPLAINT: Fever and cough PCP: Dr. Farias HISTORY OF PRESENT ILLNESS: Ms. Murphy is an 79 y/o F with hx of CAD s/p 2 stents, sarcoidosis, HTN, DL, presented with 1 day of having fevers and productive cough. She reports that throughout the day she had been experiencing body aches and a productive cough of yellow/brownish colored sputum. The patient reports that she had called her physician who had prescribed her cefidinir 300 mg and had taken one dose today. She had also taken tylenol at home which had temporarily reduced her fever. She also endorses a sore throat without chest pain, chest tightness, headache, dizziness, lightheadedness, diarrhea, constipation or any symptoms. ER course was notable for: (1) O2 saturation in low 90s (2) azithromycin (3) Recent Travel: denies PAST MEDICAL HISTORY: as above PAST SURGICAL HISTORY: as above Social History: Smoking:denies Alcohol: denies Drugs: denies Allergies Penicillins Allergy (Mild, Verified 03/28/17 19:24) Difficulty Breathing HOME MEDICATIONS: Home Medications Medication Instructions Recorded Albuterol Sulfate [Proair Hfa] 8.5 gm IH Q4HWA PRN 06/18/20 Allopurinol [Zyloprim -] 100 mg PO DAILY 06/18/20 Amlodipine Bes/Olmesartan Med 1 each PO DAILY 06/18/20 [Margarita 10-40 mg Tablet] Aspirin 81 mg PO DAILY 06/18/20 Carvedilol Phosphate [Coreg Cr -] 80 mg PO DAILY 06/18/20 Cholecalciferol (Vitamin D3) 1,000 unit PO DAILY 06/18/20 [Vitamin D3 -] Clopidogrel Bisulfate [Plavix] 75 mg PO DAILY 06/18/20 Dexlansoprazole [Dexilant] 60 mg PO DAILY 06/18/20 Ezetimibe [Zetia -] 10 mg PO DAILY 06/18/20 Folic Acid 1 mg PO DAILY 06/18/20 Furosemide [Lasix] 40 mg PO DAILY 06/18/20 Icosapent Ethyl [Vascepa] 2 gm PO BID 06/18/20 Insulin Detemir [Levemir Flextouch] 06/18/20 Insulin Glargine,Hum.rec.anlog 50 unit SQ DAILY 06/18/20 [Basaglar Kwikpen U-100] Multivitamin [Multiple Vitamins] 1 each PO DAILY 06/18/20 Pitavastatin Calcium [Livalo] 4 mg PO DAILY 06/18/20 Plecanatide [Trulance] 3 mg PO DAILY 06/18/20 Vitamin B Complex 1 each PO DAILY 06/18/20 hydrALAZINE HCL [Apresoline -] 50 mg PO TID 06/18/20 REVIEW OF SYSTEMS see above PHYSICAL EXAMINATION Vital Signs - 24 hr 06/17/20 21:11 Temperature 99.7 F H Pulse Rate 82 Respiratory 19 Rate Blood Pressure 137/47 L O2 Sat by Pulse 95 Oximetry (%) GENERAL: Awake, alert, and fully oriented, in no acute distress. LUNGS: Breath sounds equal, clear to auscultation bilaterally. No wheezes, and no crackles. No accessory muscle use. HEART: Regular rate and rhythm, normal S1 and S2 without murmur, rub or gallop. ABDOMEN: Soft, nontender, not distended, normoactive bowel sounds, no guarding, no rebound, no masses. No hepatomegaly or splenomegaly. LOWER EXTREMITIES: 2+ pulses, warm, well-perfused. No calf tenderness. No peripheral edema. Laboratory Results - last 24 hr 06/17/20 06/17/20 06/17/20 22:21 22:21 22:21 WBC 11.4 H RBC 4.33 Hgb 11.4 Hct 34.7 MCV 80.1 MCH 26.4 MCHC 33.0 RDW 13.0 D Plt Count 192 D MPV 7.4 L Absolute Neuts (auto) 9.8 H Neutrophils % 85.7 H D Lymphocytes % 7.4 L D Monocytes % 5.1 Eosinophils % 1.0 Basophils % 0.8 D Nucleated RBC % 0 PT with INR 14.00 H INR 1.18 H Sodium Potassium Chloride Carbon Dioxide Anion Gap BUN Creatinine Est GFR (CKD-EPI)AfAm Est GFR (CKD-EPI)NonAf Random Glucose Calcium Total Bilirubin AST ALT Alkaline Phosphatase Creatine Kinase Troponin I Total Protein Albumin Influenza A (Rapid) Negative Influenza B (Rapid) Negative 06/17/20 22:21 WBC RBC Hgb Hct MCV MCH MCHC RDW Plt Count MPV Absolute Neuts (auto) Neutrophils % Lymphocytes % Monocytes % Eosinophils % Basophils % Nucleated RBC % PT with INR INR Sodium 137 Potassium 4.1 Chloride 102 Carbon Dioxide 26 Anion Gap 9 BUN 19.6 H Creatinine 1.0 Est GFR (CKD-EPI)AfAm 61.62 Est GFR (CKD-EPI)NonAf 53.17 Random Glucose 117 H Calcium 8.6 Total Bilirubin 0.4 AST 16 ALT 22 Alkaline Phosphatase 38 L Creatine Kinase 88 Troponin I < 0.02 Total Protein 7.3 Albumin 3.6 Influenza A (Rapid) Influenza B (Rapid) ASSESSMENT/PLAN: Ms. Murphy is an 79 y/o F with hx of CAD s/p 2 stents, sarcoidosis, HTN, DL, presented with 1 day of having fevers and productive cough. #Pneumonia - productive cough - curb 65 moderate - 2 Inpatient vs. observation admission - iv abx levofloxacin 750mg IV one time order - id consult - Dr. Lagos - covid test pending #CAD - hx of stents - c/w aspirin - c/w beta-blockers #DM - ISS - A1C #HTN - star the patient on amlodipine 10 - start the patient on sartan (amlodipine/olmesartan is non-formulary) #HLD - start the patient on atorvastatin 40mg #FEN - monitor lytes - encourage po intake - diabetic sodium controlled diet #DVT Ppx - lovenox SQ #Dispo - admit to med surg #Advanced directive - full code ATTENDING PHYSICIAN STATEMENT I saw and evaluated the patient. I reviewed the resident's note and discussed the case with the resident. I agree with the resident's findings and plan as documented. SUBJECTIVE: OBJECTIVE: ASSESSMENT AND PLAN:
--- OUTSIDE RECORDS SUMMARY | 2020-06-18 01:16 | XMS ---
:1940 [facility] Organization [facility] Providers Name Role Phone DAVIS MARSHALL Unavailable Unavailable NONI MENDIETA Unavailable Unavailable KAREN CARMEN Unavailable Unavailable MD Madhav Major Unavailable Unavailable [...] is protected by Article 27-F of the [facility] Public Health law. If you continue you may haveaccess to information: Regarding HIV / AIDS; Provided by facilities licensed or operated by the [facility] Office of Mental Health; or Provided by the [facility] Office for People With Developmental Disabilities. If such information is present, then the following [facility] mandated warning applies: This information has been [...] Date Indications Data Source(s ) Outpatient Attender: KARSTEN, 04/02/2020 Z03.818 [facility] ROQUE OakleyAdmitter: 06:00:00 Critical access hospital Care ROQUE SHELLEY [facility] Corpor[facility] n E.Referrer: ROQUE SHELLEY Z03.818 Outpatient Attender: RAO, 07/24/2019 06:00:00 R22.2 [facility] GRIGORYAttender: CHARLOTTE MARSHALL [facility] TRACEYAdmitter: David MARSHALL TRACEYReferrer: DAVIS MARSHALL R22.2 S Attender: MD Corey ICU-AMB SURG 07/18/2019 02:00:00 [facility] - 07[facility]/2019 [place] 03:35:00 PM [facility] LUMBAR RADICULAR PAIN Patient discharged. S Attender: MD Corey ICU-AMB SURG 07/17/2019 09:41:51 [facility] EST - 07/18/2019 [place] 03:35:00 PM [facility] LUMBAR RADICULAR PAIN Patient discharged. Outpatient Attender: KERMIT, 07/03/2019 09:24:00 R22.2 [facility] HUMAYUNAdmitter: CHARLOTTE CARMEN [facility] HUMAYUNReferrer: Fred MARSHALL R22.2 Outpatient Attender: ANAM, 05/14/2019 08:07:00 D50.0 [facility] EDWARDAdmitter: CHARLOTTE MENDIETA [facility] EDWARDReferrer: ANAM [facility] D50.0 Outpatient Attender: ANAM, 05/14/2019 06:00:00 D50.0 [facility] EDWARDAdmitter: CHARLOTTE MENDIETA [facility] EDWARDReferrer: Fred MENDIETA EDWARD D50.0 Insurance Providers Payer name Policy type Policy ID Covered Covered democrat's Policy P radha / Coverage democrat ID relationship to [facility] ormation type [facility] MEDICAID [id number] SP [id number] MEDICARE [id number] SP [id number] Medicare Part Medicare [id number] 1 [id number] B Outpatient 8 Medicaid Medicaid [id number] Medicare Part Medicare [id number] 1 [id number] A 8 MEDICAID [id number] SP [id number] MEDICARE [id number] SP [id number] M Medicare Part Medicare [id number] A Part A 8 Medicare Part Medicare [id number] A Part A 8 Medicare Part 18 [id number] A 8 Medicare Part Medicare [id number] B Outpatient MEDICAID [id number] MEDICARE PT B [id number] O/P Problems, Conditions, and Diagnoses Code Display Name Description Problem Type Effective Data Sour ce(s) Dates Z03.818 Encounter for ENCNTR FOR OBS FOR Diagnosis 04/02/2020 [facility] observation for SUSP EXPSR TO OTH 06:00:00 AM [facility] suspected exposure BIOLG AGENTS RULED EDT Care to other biological OUT Corpo ration agents ruled out 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 (CURRENT) Diagnosis 019 [place] use of insulin USE OF INSULIN 06:00:00 AM [employer] M06.9 Rheumatoid RHEUMATOID Diagnosis 07/24/2019 [place] arthritis, ARTHRITIS, 06:00:00 AM [facility] unspecified UNSPECIFIED Nonpareil M48.00 Spinal stenosis, SPINAL STENOSIS, Diagnosis 07/24/2019 [facility] site unspecified SITE UNSPECIFIED 06:00:00 AM [facility] Z95.5 Presence of PRESENCE OF Diagnosis 07/24/2019 [place] coronary CORONARY 06:00:00 AM [facility] angioplasty implant ANGIOPLASTY IMPLANT EST Care and graft [employer] I25.10 Atherosclerotic ATHSCL HEART Diagnosis 07/24/2019 [facility] heart disease of DISEASE OF [place] 06:00:00 AM [facility] [place] coronary CORONARY ARTERY W/O EST Care artery without ANG [employer]RS [employer] angina pectoris B19.20 Unspecified viral UNSPECIFIED VIRAL Diagnosis 07/24/2019 [place] hepatitis C without HEPATITIS C WITHOUT 06:00:0 0 AM [facility] hepatic coma HEPATIC COMA [facility] I10 Essential (primary) ESSENTIAL (PRIMARY) Diagnosis 019 [place] hypertension HYPERTENSION 06:00:00 AM [facility] He alth [facility] E11.9 Type 2 diabetes TYPE 2 DIABETES Diagnosis 07/24/2019 [place] [facility] mellitus without MELLITUS WITHOUT 06:00:00 AM [place] complications COMPLICATIONS [facility] D86.9 Sarcoidosis, SARCOIDOSIS, Diagnosis 07/24/2019 [facility] r unspecified UNSPECIFIED 06:00:00 AM [facility] th EST [facility] 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 [place] connective and CONNECTIVE AND OTH 06:00:00 AM [facility] other soft tissue SOFT TISSUE OF EST Car e of thorax [employer] R22.2 Localized swelling, LOCALIZED SWELLING, Diagnosis 019 [place] mass and lump, MASS AND LUMP, 06:00:00 AM [facility] trunk TRUNK [facility] M48.062 Spinal stenosis, Spinal stenosis of Diagnosis 07/18/2019 [facility] - New lumbar region with lumbar region with 02:00:00 PM [place] neurogenic neurogenic [facility] claudication claudication M79.604 Pain in right leg Pain of right lower Diagnosis 9 [facility] - New extremity 02:00:00 PM [facility] M47.26 Other spondylosis Other spondylosis Diagnosis 07/18/2019 [facility] - New with radiculopathy, with radiculopathy, 02:00:0 0 PM [place] lumbar region lumbar region [facility] LUMBAR RADICULAR LUMBAR RADICULAR Diagnosis 07/18/2019 MH S - New PAIN PAIN 02:00:00 PM [facility] M54.5 Low back pain Low back pain Diagnosis 07/18/2019 S - Ne w 02:00:00 PM [facility] 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 for Diagnosis 07/18/2019 S - New use of long-term use of 02:00:00 PM [facility] antithrombotics/ant antiplatelets/antit [facility] iplatelets hrombotics 72774 Injection(s), of Injection(s), of Diagnosis 07/18/2019 S - New diagnostic or diagnostic or 02:00:00 PM [facility] therapeutic therapeutic [facility] substance(s) (eg, substance(s) (eg, anesthetic, anesthetic, antispasmodic, antispasmodic, opioid, steroid, opioid, steroid, other solution), other solution), not including not including neurolytic neurolytic substances, substances, including needle or including needle or catheter placement, catheter placement, interlaminar interlaminar epidural or epidural or subarachnoid, subarachnoid, lumbar or sacral lumbar or sacral I25.10 Atherosclerotic Atherosclerosis of Diagnosis 07/18/2019 M HS - New heart disease of [place] coronary 02:00:00 PM Ro [facility] [place] coronary artery without EST Hospi jessica artery without angina pectoris angina pectoris K21.9 Gastro-esophageal GASTRO-ESOPHAGEAL Diagnosis 05/14/2019 [place] reflux disease REFLUX DISEASE 08:07:00 AM [facility] without esophagitis WITHOUT ESOPHAGITIS [employer] D50.9 Iron deficiency IRON DEFICIENCY Diagnosis 05/14/2019 [place] anemia, unspecified ANEMIA, UNSPECIFIED 08:07:0 0 AM [facility] [employer] Surgeries/Procedures Procedure Description Date Indications Data Source(s) XR Fluoroguide For 07/18/2019 [employer] Spine Inject XR 03:24:00 PM EST System Fluoroguide For Spine - 07/18/2019 Inject 03:24:00 PM EST Results ID Date Data Source [id number] 04/04/2020 12:00:00 AM EDT [facility] [employer] Name Value Range Interpretation Code Description Data Pippa rce(s) Supporting Document(s ) SARS-COV-2 [place] RNA RT-PCR [facility] This lab was ordered by [facility] and reported by [facility]. ID Date Data Source [id number] 01/10/2019 09:46:20 AM EDT [facility] System Name Value Range Interpretation Description Data Sup porting Code Source(s) Document(s ) Type B Normal (applies Type [facility] to non-numeric Health results) System AntibodyScreen Negative Normal (applies Antibody [facility] to non-numeric Screen Health results) System D Ab [Titer] in Positive Normal (applies Rh [facility] Serum or Plasma to non-numeric Health results) System ID Date Data Source [id number] 01/17/2019 12:26:52 PM EDT [facility]th [...] Health results) System ID Date Data Source [id number] 08/18/2019 05:07:54 PM EST [facility] System Name Value Range Interpretation Description Data Sup porting Code Source(s) Document(s ) TissueExam Results for case # Normal (applies Tissue Exam [facility] [id number] to non-numeric Health SURGICAL PATHOLOGY results) System [...] condyles. There is erosion and osteophyte growth. Helicopter Dispatcher sections are submitted following decalcification in one cassette.MV/stPage 1 of 1 ID Date Data Source [id number] 01/18/2019 06:09:00 AM EDT [facility] [...] } results) System ID Date Data Source [id number] 01/18/2019 06:09:00 AM EDKaleb Mabry alth System Once Name Value Range Interpretation [...] or results) Plasma ID Date Data Source [id number] 01/19/2019 06:07:00 AM EDT [facility] [...] System Plasma results) ID Date Data Source [id number] 01/20/2019 05:55:00 AM EDT [facility] [...] System Plasma results) ID Date Data Source [id number] 07/18/2019 03:24:00 PM [facility] Fluoroscopy up to 1 hour performed [...]
[2020-06-18 07:44] LABS: BASO % 0.5 % (0-2.0); EOS % 1.6 % (0-4.5); HEMATOCRIT 33.2 % (32.4-45.2); LYMPH % 10.2 % (8-40); MCH 26.5 pg (25.7-33.7); MCHC 33.1 g/dl (32.0-36.0); MEAN CELL VOLUME 80.1 fl (80-96); MEAN PLT VOLUME 7.5 fl (7.5-11.1); MONO % 5.5 % (3.8-10.2); NEUT % 82.2 % (42.8-82.8); PLATELET COUNT 163 K/MM3 (134-434); RBC 4.14 M/mm3 (3.60-5.2); RDW 13.2 % (11.6-15.6); WHITE BLOOD COUNT 7.5 K/mm3 (4.0-10.0)
[2020-06-18 07:48] LABS: POTASSIUM 3.8 mmol/L (3.5-5.1)
[2020-06-18 07:58] LABS: ALBUMIN 3.3 g/dl (3.4-5.0); BILIRUBIN,TOTAL 0.4 mg/dL (0.2-1); BLOOD UREA NITROGEN 16.1 mg/dL (7-18); CALCIUM 8.6 mg/dL (8.5-10.1); CREATININE 0.8 mg/dL (0.55-1.3); MAGNESIUM 1.9 mg/dL (1.8-2.4); PHOSPHOROUS 3.4 mg/dL (2.5-4.9); TOT PROT 6.9 g/dl (6.4-8.2)
[2020-06-18] MEDS: INSULIN SLIDING SCALE (NOVOLOG) 1 VIAL SQ SCH ×4 (08:33→23:56)
[2020-06-18] MEDS ORDERED: ENOXAPARIN NA (PORCINE) 40 MG/0.4 ML DISP.SYRIN SQ ONE (10:01)
[2020-06-18] MEDS: ENOXAPARIN NA (PORCINE) 40 MG/0.4 ML DISP.SYRIN SQ SCH (10:01)
--- NOTE | 2020-06-18 10:25 | CON.ID ---
Consult Consult Specialty:: infectious disease Referred by:: bryce Reason for Consultation:: fever cough - History of Present Illness Chief Complaint: fever , cough History of Present Illness: one day of fever and cough- yellow took one dose of po antibiotics lives with family no sick contacts fever 101 at home no travel no GI symptoms eating normally PCP- dr haider +flu vaccine last week - History Source History Provided By: Patient, Medical Record Limitations to Obtaining History: No Limitations - Past Medical History Cardio/Vascular: Yes: CAD, HTN Pulmonary: Yes: Other (Sarcoidosis) Hepatobiliary: Yes: Hepatitis C Endocrine: Yes: Diabetes Mellitus - Alcohol/Substance Use Hx Alcohol Use: No - Smoking History Smoking history: Never smoked Have you smoked in the past 12 months: No Aproximately how many cigarettes per day: 0 - Social History Usual Living Arrangement: With Child ADL: Independent Place of : Other History of Recent Travel: No Home Medications - Allergies Allergies/Adverse Reactions: Allergies Allergy/AdvReac Type Severity Reaction Status Date / Time Penicillins Allergy Mild Difficulty Verified 03/28/17 19:24 Breathing - Home Medications Home Medications: Ambulatory Orders Albuterol Sulfate [Proair Hfa] 8.5 gm IH Q4HWA PRN 06/18/20 Allopurinol [Zyloprim -] 100 mg PO DAILY 06/18/20 Amlodipine Bes/Olmesartan Med [Margarita 10-40 mg Tablet] 1 each PO DAILY 06/18/20 Aspirin 81 mg PO DAILY 06/18/20 Carvedilol Phosphate [Coreg Cr -] 80 mg PO DAILY 06/18/20 Cholecalciferol (Vitamin D3) [Vitamin D3 -] 1,000 unit PO DAILY 06/18/20 Clopidogrel Bisulfate [Plavix] 75 mg PO DAILY 06/18/20 Dexlansoprazole [Dexilant] 60 mg PO DAILY 06/18/20 Ezetimibe [Zetia -] 10 mg PO DAILY 06/18/20 Folic Acid 1 mg PO DAILY 06/18/20 Furosemide [Lasix] 40 mg PO DAILY 06/18/20 Icosapent Ethyl [Vascepa] 2 gm PO BID 06/18/20 Insulin Detemir [Levemir Flextouch] 06/18/20 Insulin Glargine,Hum.rec.anlog [Basaglar Kwikpen U-100] 50 unit SQ DAILY 06/18/20 Multivitamin [Multiple Vitamins] 1 each PO DAILY 06/18/20 Pitavastatin Calcium [Livalo] 4 mg PO DAILY 06/18/20 Plecanatide [Trulance] 3 mg PO DAILY 06/18/20 Vitamin B Complex 1 each PO DAILY 06/18/20 hydrALAZINE HCL [Apresoline -] 50 mg PO TID 06/18/20 Family Medical History Family History: Unable to Obtain Review of Systems - Review of Systems Constitutional: reports: Fever Eyes: reports: No Symptoms HENT: reports: No Symptoms Neck: reports: No Symptoms Cardiovascular: reports: No Symptoms, Chest Pain Respiratory: reports: Cough Gastrointestinal: reports: No Symptoms Genitourinary: reports: No Symptoms Physical Exam Vital Signs: Vital Signs Temperature 99.2 F 06/18/20 08:09 Pulse Rate 88 06/18/20 08:09 Respiratory Rate 19 06/18/20 08:09 Blood Pressure 133/45 L 06/18/20 08:09 O2 Sat by Pulse Oximetry (%) 100 06/18/20 08:09 Constitutional: Yes: Well Nourished, No Distress, Calm Eyes: Yes: Conjunctiva Clear HENT: Yes: Atraumatic, Normocephalic Neck: Yes: Supple Cardiovascular: Yes: Regular Rate and Rhythm Respiratory: Yes: CTA Bilaterally Gastrointestinal: Yes: Normal Bowel Sounds ...Rectal Exam: Yes: Deferred Extremities: Yes: WNL Edema: No Labs: CBC, BMP 06/18/20 06:15 06/18/20 06:15 Imaging - Results Chest X-ray: Report Reviewed, Image Reviewed Cat Scan: Report Reviewed, Image Reviewed Problem List - Problems (1) Fever Code(s): R50.9 - FEVER, UNSPECIFIED (2) Cough Code(s): R05 - COUGH (3) Sarcoidosis of lung Code(s): D86.0 - SARCOIDOSIS OF LUNG (4) CAD (coronary artery disease) Code(s): I25.10 - ATHSCL HEART DISEASE OF [place] CORONARY ARTERY W/O ANG PCTRS Qualifiers: Coronary Disease-Associated Artery/Lesion type: [place] artery [place] vs. transplanted heart: [place] heart Associated angina: without angina Qualified Code(s): I25.10 - Atherosclerotic heart disease of [place] coronary artery without angina pectoris (5) Penicillin allergy Code(s): Z88.0 - ALLERGY STATUS TO PENICILLIN Assessment/Plan fever cough of one day- fever a bit high for bronchitis,, but cxray and ct scan not convincing for pneumonia this could be early covid she has been sick for one day only trend inflammatory markers rocephin/zith to continue (pen allergy- but no issues with rocephin earlier today) sputum culture legionella antigen f/u covid pcr isolate
--- NOTE | 2020-06-18 10:33 | EKG ---
Test Reason : Blood Pressure : / mmHG Vent. Rate : 086 BPM Atrial Rate : 086 BPM P-R Int : 186 ms QRS Dur : 080 ms QT Int : 378 ms P-R-T Axes : 045 012 047 degrees QTc Int : 452 ms NORMAL SINUS RHYTHM NONSPECIFIC T WAVE ABNORMALITY WHEN COMPARED WITH ECG OF 29-NOV-2018 22:31, NO SIGNIFICANT CHANGE WAS FOUND Confirmed by AIDAN PRINCE MD ([id number]) on 06/18/2020 10:33:23 AM Referred By: Confirmed By:AIDAN PRINCE MD
[2020-06-18] MEDS ORDERED: ACETAMINOPHEN 325 MG TABLET (FP) PO PRN (10:56)
--- NOTE | 2020-06-18 10:57 | PN ---
Progress Note, Physician Chief Complaint: Pneumonia History of Present Illness: Ms. Murphy is an 79 y/o F with hx of CAD s/p 2 stents, sarcoidosis, HTN, DL, presented with 1 day of having fevers and productive cough. She reports that throughout the day she had been experiencing body aches and a productive cough of yellow/brownish colored sputum. The patient reports that she had called her physician who had prescribed her cefidinir 300 mg and had taken one dose today. She had also taken tylenol at home which had temporarily reduced her fever. She also endorses a sore throat without chest pain, chest tightness, headache, dizziness, lightheadedness, diarrhea, constipation or any symptoms. Currently NAD, denies any SOB, c/o knee pain - Current Medication List Current Medications: Active Medications Allopurinol (Zyloprim -) 100 mg PO DAILY [facility] Amlodipine Besylate (Norvasc -) 5 mg PO DAILY [facility] Aspirin (Asa -) 81 mg PO DAILY [facility] Atorvastatin Calcium (Lipitor -) 10 mg PO HS [facility] Carvedilol (Coreg Cr -) 20 mg PO DAILY [facility] Cholecalciferol (Vitamin D3 -) 1,000 unit PO DAILY [facility] Clopidogrel Bisulfate (Plavix -) 75 mg PO DAILY [facility] Ezetimibe (Zetia -) 10 mg PO DAILY [facility] Enoxaparin Sodium (Lovenox -) 40 mg SQ DAILY [facility] Last Admin: 06/18/20 10:01 Dose: 40 mg Documented by: Folic Acid (Folic Acid -) 1 mg PO DAILY [facility] Furosemide (Lasix -) 40 mg PO DAILY [facility] Ceftriaxone Sodium 1 gm/ (Dextrose) 50 mls @ 100 mls/hr IVPB DAILY [facility]; Protocol Azithromycin (Zithromax 500mg Ivpb (Pre-Docked)) 500 mg in 250 mls @ 250 mls/hr IVPB DAILY [facility] Insulin Aspart (Novolog Vial Sliding Scale -) 1 vial SQ ACHS [facility]; Protocol Last Admin: 06/18/20 08:33 Dose: Not Given Documented by: Multivitamins/Minerals/Vitamin C (Tab-A-Vit -) 1 tab PO DAILY [facility] Valsartan (Diovan -) 40 mg PO DAILY [facility] - Objective Vital Signs: Vital Signs Temperature 99.2 F 06/18/20 08:09 Pulse Rate 88 06/18/20 08:09 Respiratory Rate 19 06/18/20 08:09 Blood Pressure 133/45 L 06/18/20 08:09 O2 Sat by Pulse Oximetry (%) 100 06/18/20 08:09 Constitutional: Yes: Well Nourished, No Distress, Calm Cardiovascular: Yes: Regular Rate and Rhythm Respiratory: Yes: Regular, CTA Bilaterally, On Nasal O2 Gastrointestinal: Yes: Normal Bowel Sounds, Soft Genitourinary: Yes: WNL Musculoskeletal: Yes: Muscle Weakness Extremities: Yes: WNL Edema: No Peripheral Pulses WNL: Yes Neurological: Yes: Alert, Oriented Psychiatric: Yes: Alert, Oriented Labs: CBC, BMP 06/18/20 06:15 06/18/20 06:15 INR, PTT INR 1.18 (0.83-1.09) H 06/17/20 22:21 Problem List - Problems (1) Pneumonia Assessment/Plan: -Pulmonary consult -COVID 19 PCR pending -ID consult -Started on Azithromycin + Rocephin -Nasal O2 PRN to keep SpO2>90% -CT Chest:Compared to prior chest x-ray dated 06/17/[address] scan of the chest dated 05/18/2010 sutures and pleural thickening again noted in the right lower lobe, laterally with mild adjacent atelectatic changes versus scarring that has slightly increased since the prior exam. No groundglass opacities/infiltrates are identified. Previously visualized approximately 5 mm nodule in the left lung base, laterally is again seen without interval change. Problems reviewed: Yes Code(s): J18.9 - PNEUMONIA, UNSPECIFIED ORGANISM (2) CAD (coronary artery disease) Assessment/Plan: -Continue Plavix+ Statin + ASA Problems reviewed: Yes Code(s): I25.10 - ATHSCL HEART DISEASE OF [place] CORONARY ARTERY W/O ANG PCTRS Qualifiers: Coronary Disease-Associated Artery/Lesion type: [place] artery [place] vs. transplanted heart: [place] heart Associated angina: without angina Qualified Code(s): I25.10 - Atherosclerotic heart disease of [place] coronary artery without angina pectoris (3) Diabetes Assessment/Plan: A1c at 7.0 -BGM AC HS -Diabetic low sodium diet -ISS Problems reviewed: Yes Code(s): E11.9 - TYPE 2 DIABETES MELLITUS WITHOUT COMPLICATIONS Qualifiers: Diabetes mellitus type: type 2 Diabetes mellitus terminal system operator insulin use: without terminal system operator use Diabetes mellitus complication status: without complication Qualified Code(s): E11.9 - Type 2 diabetes mellitus without complications (4) HTN (hypertension) Assessment/Plan: -Gradually start home meds -Start Valsartan (to replace olmesartan) at 40 mg po daily -Start Amlodpine at 5 mg po daily -Start Carvedilol Cr at 20 mg po daily -Hold hydralazine for now -Would gradually increase dosing as needed Problems reviewed: Yes Code(s): I10 - ESSENTIAL (PRIMARY) HYPERTENSION Qualifiers: Hypertension type: essential hypertension Qualified Code(s): I10 - Essential (primary) hypertension Assessment/Plan See problem list
[2020-06-18] MEDS ORDERED: MULTIVITAMINS (DAILY MVI) TABLET (FP) ONE (11:15)
[2020-06-18] MEDS ORDERED: VALSARTAN 80 MG TABLET ONE (11:16)
[2020-06-18] MEDS ORDERED: amLODIPine BESYLATE 5 MG TABLET (FP) ONE (11:16)
[2020-06-18] MEDS ORDERED: ASPIRIN 81 MG CHEWABLE TABLETS ONE (11:16)
[2020-06-18] MEDS ORDERED: CLOPIDOGREL BISULFATE 75 MG TABLET (FP) ONE (11:16)
[2020-06-18] MEDS ORDERED: FUROSEMIDE 40 MG TABLET (FP) ONE (11:16)
[2020-06-18] MEDS ORDERED: FOLIC ACID 1 MG TABLET (FP) ONE (11:17)
[2020-06-18] MEDS: CLOPIDOGREL BISULFATE 75 MG TABLET (FP) PO SCH (11:37)
[2020-06-18] MEDS: VALSARTAN 40 MG TABLET PO SCH (11:37)
[2020-06-18] MEDS: MULTIVITAMINS (DAILY MVI) TABLET (FP) PO SCH (11:37)
[2020-06-18] MEDS: ASPIRIN 81 MG CHEWABLE TABLETS PO SCH (11:37)
[2020-06-18] MEDS: FOLIC ACID 1 MG TABLET (FP) PO SCH (11:37)
[2020-06-18] MEDS: amLODIPine BESYLATE 5 MG TABLET (FP) PO SCH (11:37)
[2020-06-18] MEDS: FUROSEMIDE 40 MG TABLET (FP) PO SCH (11:37)
[2020-06-18] MEDS: CARVEDILOL PHOSPHATE CR 20 MG CAPSULE PO SCH (11:50)
[2020-06-18] MEDS: CHOLECALCIFEROL (VIT D3) 1,000 UNIT (25 MCG) TABLET PO SCH (11:50)
[2020-06-18] MEDS: ALLOPURINOL 100 MG TABLET (FP) PO SCH (11:50)
[2020-06-18] MEDS: EZETIMIBE 10 MG TABLET (FP) PO SCH (11:50)
--- NOTE | 2020-06-18 14:12 | CON.PULM ---
Consult Consult Specialty:: PULM/CCM Referred by:: TIBURCIO Reason for Consultation:: SOB / Fever - History of Present Illness Chief Complaint: SOB / fever History of Present Illness: 79 F, CAD, s/p PCI X 2, Pulmonary Sarcoidosis, and HTN. Admitted via the ER due to 1 day of having fevers and productive cough. Reports body aches and a productive cough of yellow/brownish sputum. She was prescribed cefidinir 300 mg and took one dose. She also took tylenol for her fever. Denies recent travel history or sick contacts. No hemoptysis or night sweats. - History Source History Provided By: Patient Limitations to Obtaining History: No Limitations - Past Medical History Cardio/Vascular: Yes: CAD, HTN Pulmonary: Yes: Bronchitis, Other (Sarcoidosis). No: Asthma, Cancer, COPD, O2 Dependent, Pneumonia, Previously Intubated, Pulmonary Embolus, Pulmonary Fibrosis, Sleep Apnea Hepatobiliary: Yes: Hepatitis C Endocrine: Yes: Diabetes Mellitus - Alcohol/Substance Use Hx Alcohol Use: No - Smoking History Smoking history: Never smoked Have you smoked in the past 12 months: No Aproximately how many cigarettes per day: 0 - Social History ADL: Independent History of Recent Travel: No Home Medications - Allergies Allergies/Adverse Reactions: Allergies Allergy/AdvReac Type Severity Reaction Status Date / Time Penicillins Allergy Mild Difficulty Verified 03/28/17 19:24 Breathing - Home Medications Home Medications: Ambulatory Orders Albuterol Sulfate [Proair Hfa] 8.5 gm IH Q4HWA PRN 06/18/20 Allopurinol [Zyloprim -] 100 mg PO DAILY 06/18/20 Amlodipine Bes/Olmesartan Med [Margarita 10-40 mg Tablet] 1 each PO DAILY 06/18/20 Aspirin 81 mg PO DAILY 06/18/20 Carvedilol Phosphate [Coreg Cr -] 80 mg PO DAILY 06/18/20 Cholecalciferol (Vitamin D3) [Vitamin D3 -] 1,000 unit PO DAILY 06/18/20 Clopidogrel Bisulfate [Plavix] 75 mg PO DAILY 06/18/20 Dexlansoprazole [Dexilant] 60 mg PO DAILY 06/18/20 Ezetimibe [Zetia -] 10 mg PO DAILY 06/18/20 Folic Acid 1 mg PO DAILY 06/18/20 Furosemide [Lasix] 40 mg PO DAILY 06/18/20 Icosapent Ethyl [Vascepa] 2 gm PO BID 06/18/20 Insulin Detemir [Levemir Flextouch] 06/18/20 Insulin Glargine,Hum.rec.anlog [Basaglar Kwikpen U-100] 50 unit SQ DAILY 06/18/20 Multivitamin [Multiple Vitamins] 1 each PO DAILY 06/18/20 Pitavastatin Calcium [Livalo] 4 mg PO DAILY 06/18/20 Plecanatide [Trulance] 3 mg PO DAILY 06/18/20 Vitamin B Complex 1 each PO DAILY 06/18/20 hydrALAZINE HCL [Apresoline -] 50 mg PO TID 06/18/20 Review of Systems - Review of Systems Constitutional: reports: Chills, Fever, Lethargy, Malaise. denies: Night Sweats Eyes: reports: No Symptoms HENT: reports: No Symptoms Neck: reports: No Symptoms Cardiovascular: reports: Shortness of Breath. denies: Chest Pain, Edema, Palpitations Respiratory: reports: Cough, SOB, SOB on Exertion. denies: Hemoptysis, Snoring, Wheezing Gastrointestinal: reports: No Symptoms, Rectal Bleeding Breasts: reports: No Symptoms Reported Musculoskeletal: reports: No Symptoms Integumentary: reports: No Symptoms Neurological: reports: No Symptoms Endocrine: reports: No Symptoms Hematology/Lymphatic: reports: No Symptoms Psychiatric: reports: No Symptoms Physical Exam Vital Sings: Vital Signs Temperature 99.2 F 06/18/20 08:09 Pulse Rate 88 06/18/20 08:09 Respiratory Rate 19 06/18/20 08:09 Blood Pressure 133/45 L 06/18/20 08:09 O2 Sat by Pulse Oximetry (%) 100 06/18/20 08:09 Constitutional: Yes: Well Nourished, No Distress Eyes: Yes: Conjunctiva Clear, EOM Intact HENT: Yes: Atraumatic, Normocephalic Neck: Yes: Supple, Trachea Midline Cardiovascular: Yes: Regular Rate and Rhythm Respiratory: Yes: Cough, Diminished, SOB on Exertion. No: Accessory Muscle Use, Rales, SOB, Stridor, Tachypnea, Wheezes ...Inspection: Yes: WNL ...Clubbing: No Gastrointestinal: Yes: Normal Bowel Sounds, Soft Renal/: Yes: WNL Musculoskeletal: Yes: WNL Extremities: Yes: WNL Edema: No Peripheral Pulses WNL: Yes Integumentary: Yes: WNL Neurological: Yes: WNL, Alert, Oriented ...Motor Strength: WNL Psychiatric: Yes: WNL, Alert, Oriented Labs: CBC, BMP 06/18/20 06:15 06/18/20 06:15 Imaging - Results Chest X-ray: Report Reviewed, Image Reviewed Problem List - Problems (1) Dyspnea Code(s): R06.00 - DYSPNEA, UNSPECIFIED (2) Sarcoidosis of lung Code(s): D86.0 - SARCOIDOSIS OF LUNG (3) Pneumonia Code(s): J18.9 - PNEUMONIA, UNSPECIFIED ORGANISM (4) CAD (coronary artery disease) Code(s): I25.10 - ATHSCL HEART DISEASE OF [place] CORONARY ARTERY W/O ANG PCTRS Qualifiers: Coronary Disease-Associated Artery/Lesion type: [place] artery [place] vs. transplanted heart: [place] heart Associated angina: without angina Qualified Code(s): I25.10 - Atherosclerotic heart disease of [place] coronary artery without angina pectoris (5) CKD (chronic kidney disease) Code(s): N18.9 - CHRONIC KIDNEY DISEASE, UNSPECIFIED (6) Diabetes Code(s): E11.9 - TYPE 2 DIABETES MELLITUS WITHOUT COMPLICATIONS Qualifiers: Diabetes mellitus type: type 2 Diabetes mellitus retirement insulin use: without retirement use Diabetes mellitus complication status: without complication Qualified Code(s): E11.9 - Type 2 diabetes mellitus without complications (7) HTN (hypertension) Code(s): I10 - ESSENTIAL (PRIMARY) HYPERTENSION Qualifiers: Hypertension type: essential hypertension Qualified Code(s): I10 - Essential (primary) hypertension (8) Hyperlipidemia Code(s): E78.5 - HYPERLIPIDEMIA, UNSPECIFIED Qualifiers: Hyperlipidemia type: pure hypercholesterolemia Qualified Code(s): E78.00 - Pure hypercholesterolemia, unspecified Assessment/Plan Noted ID Evaluation was called: to discuss ABX coverage : On empiric Zithromax/Rocephin Supplemental O2 as needed Check COVID19 serology Check Cultures No smoking VTE prophylaxis No clear indication for systemic steroids at this time Outpatient PFTs Will need to get additional history regarding Sarcoidosis Will follow Thank you. Dr Wilson
[2020-06-18 14:17] LABS: URINE APPEARANCE CLOUDY; URINE BILIRUBIN NEGATIVE (NEGATIVE); URINE COLOR YELLOW; URINE GLUCOSE (UA) NEGATIVE (NEGATIVE); URINE KETONE NEGATIVE (NEGATIVE); URINE LEUK ESTERASE NEGATIVE (NEGATIVE); URINE NITRITE NEGATIVE (NEGATIVE); URINE PROTEIN NEGATIVE (NEGATIVE); URINE UROBILINOGEN 0.2 mg/dL (0.2-1.0)
[2020-06-18 22:55] VITALS: BMI 36.7
[2020-06-18] MEDS: ATORVASTATIN CA 10 MG TABLET (FP) PO SCH (23:54)
[2020-06-19] MEDS: INSULIN SLIDING SCALE (NOVOLOG) 1 VIAL SQ SCH ×4 (06:53→21:18)
[2020-06-19] MEDS ORDERED: INSULIN (NOVOLOG) ASPART 100 UNITS/ML 10ML VIAL ONE (07:39)
[2020-06-19 07:58] LABS: BASO % 0.7 % (0-2.0); EOS % 1.6 % (0-4.5); HEMATOCRIT 33.6 % (32.4-45.2); LYMPH % 24.8 % (8-40); MCHC 32.7 g/dl (32.0-36.0); MEAN CELL VOLUME 79.5 fl (80-96); MEAN PLT VOLUME 7.2 fl (7.5-11.1); MONO % 9.9 % (3.8-10.2); PLATELET COUNT 180 K/MM3 (134-434); RBC 4.22 M/mm3 (3.60-5.2); WHITE BLOOD COUNT 5.7 K/mm3 (4.0-10.0)
[2020-06-19 08:24] LABS: ALBUMIN 3.2 g/dl (3.4-5.0); BILIRUBIN,TOTAL 0.7 mg/dL (0.2-1); CALCIUM 8.8 mg/dL (8.5-10.1); CREATININE 0.8 mg/dL (0.55-1.3); POTASSIUM 3.8 mmol/L (3.5-5.1); TOT PROT 6.8 g/dl (6.4-8.2)
[2020-06-19] MEDS ORDERED: DEXTROSE 5%-WATER - 50 ML IVPB ONE (09:11)
[2020-06-19] MEDS ORDERED: cefTRIAXone SODIUM 1 GM VIAL ONE (09:11)
[2020-06-19] MEDS: CLOPIDOGREL BISULFATE 75 MG TABLET (FP) PO SCH (09:25)
[2020-06-19] MEDS: CHOLECALCIFEROL (VIT D3) 1,000 UNIT (25 MCG) TABLET PO SCH (09:25)
[2020-06-19] MEDS: ALLOPURINOL 100 MG TABLET (FP) PO SCH (09:25)
[2020-06-19] MEDS: ASPIRIN 81 MG CHEWABLE TABLETS PO SCH (09:25)
[2020-06-19] MEDS: CARVEDILOL PHOSPHATE CR 20 MG CAPSULE PO SCH (09:27)
[2020-06-19] MEDS: VALSARTAN 40 MG TABLET PO SCH (09:28)
[2020-06-19] MEDS: ENOXAPARIN NA (PORCINE) 40 MG/0.4 ML DISP.SYRIN SQ SCH (09:29)
[2020-06-19] MEDS: FOLIC ACID 1 MG TABLET (FP) PO SCH (09:29)
[2020-06-19] MEDS: FUROSEMIDE 40 MG TABLET (FP) PO SCH (09:29)
[2020-06-19] MEDS: amLODIPine BESYLATE 5 MG TABLET (FP) PO SCH (09:30)
[2020-06-19] MEDS: EZETIMIBE 10 MG TABLET (FP) PO SCH (09:32)
[2020-06-19] MEDS: AZITHROMYCIN IVPB 500 MG/250 ML BAG IVPB SCH (09:33)
[2020-06-19] MEDS: MULTIVITAMINS (DAILY MVI) TABLET (FP) PO SCH (09:33)
[2020-06-19] MEDS ORDERED: ALBUTEROL SO4 2.5/IPRATROPIUM 0.5 INH SOL 3 ML VIAL.NEB. NEB PRN (11:25)
--- NOTE | 2020-06-19 11:25 | PN ---
Progress Note, Physician Chief Complaint: Pneumonia History of Present Illness: Ms. Murphy is an 79 y/o F with hx of CAD s/p 2 stents, sarcoidosis, HTN, DL, presented with 1 day of having fevers and productive cough. She reports that throughout the day she had been experiencing body aches and a productive cough of yellow/brownish colored sputum. The patient reports that she had called her physician who had prescribed her cefidinir 300 mg and had taken one dose today. She had also taken tylenol at home which had temporarily reduced her fever. She also endorses a sore throat without chest pain, chest tightness, headache, dizziness, lightheadedness, diarrhea, constipation or any symptoms. CTAP shows no pneumonia 06/19/20: Feels better, denies any SOB Seen by pulmonary On IV zithro+ rocephin Legionella culture negative SC- preliminary negative afebrile leukocytosis resolved COVID 19 PCR negative - Current Medication List Current Medications: Active Medications Acetaminophen (Tylenol -) 650 mg PO Q4H PRN PRN Reason: PAIN Allopurinol (Zyloprim -) 100 mg PO DAILY [facility] Last Admin: 06/19/20 09:25 Dose: 100 mg Documented by: Amlodipine Besylate (Norvasc -) 5 mg PO DAILY [facility] Last Admin: 06/19/20 09:30 Dose: 5 mg Documented by: Aspirin (Asa -) 81 mg PO DAILY [facility] Last Admin: 06/19/20 09:25 Dose: 81 mg Documented by: Atorvastatin Calcium (Lipitor -) 10 mg PO HS [facility] Last Admin: 06/18/20 23:54 Dose: 10 mg Documented by: Carvedilol (Coreg Cr -) 20 mg PO DAILY [facility] Last Admin: 06/19/20 09:27 Dose: 20 mg Documented by: Cholecalciferol (Vitamin D3 -) 1,000 unit PO DAILY [facility] Last Admin: 06/19/20 09:25 Dose: 1,000 unit Documented by: Clopidogrel Bisulfate (Plavix -) 75 mg PO DAILY [facility] Last Admin: 06/19/20 09:25 Dose: 75 mg Documented by: Ezetimibe (Zetia -) 10 mg PO DAILY [facility] Last Admin: 06/19/20 09:32 Dose: 10 mg Documented by: Enoxaparin Sodium (Lovenox -) 40 mg SQ DAILY [facility] Last Admin: 06/19/20 09:29 Dose: 40 mg Documented by: Folic Acid (Folic Acid -) 1 mg PO DAILY [facility] Last Admin: 06/19/20 09:29 Dose: 1 mg Documented by: Furosemide (Lasix -) 40 mg PO DAILY [facility] Last Admin: 06/19/20 09:29 Dose: 40 mg Documented by: Ceftriaxone Sodium 1 gm/ (Dextrose) 50 mls @ 100 mls/hr IVPB DAILY [facility]; Protocol Azithromycin (Zithromax 500mg Ivpb (Pre-Docked)) 500 mg in 250 mls @ 250 mls/hr IVPB DAILY [facility] Last Admin: 06/19/20 09:33 Dose: 250 mls/hr Documented by: Insulin Aspart (Novolog Vial Sliding Scale -) 1 vial SQ ACHS [facility]; Protocol Last Admin: 06/19/20 11:03 Dose: 4 units Documented by: Multivitamins/Minerals/Vitamin C (Tab-A-Vit -) 1 tab PO DAILY [facility] Last Admin: 06/19/20 09:33 Dose: 1 tab Documented by: Valsartan (Diovan -) 40 mg PO DAILY [facility] Last Admin: 06/19/20 09:28 Dose: 40 mg Documented by: - Objective Vital Signs: Vital Signs Temperature 98.7 F 06/19/20 06:58 Pulse Rate 75 06/19/20 06:58 Respiratory Rate 18 06/19/20 06:58 Blood Pressure 157/55 L 06/19/20 06:58 O2 Sat by Pulse Oximetry (%) 97 06/19/20 06:58 Constitutional: Yes: Well Nourished, No Distress, Calm Cardiovascular: Yes: Regular Rate and Rhythm Respiratory: Yes: Regular, CTA Bilaterally, On Nasal O2 Gastrointestinal: Yes: Normal Bowel Sounds, Soft Genitourinary: Yes: WNL Musculoskeletal: Yes: Muscle Weakness Extremities: Yes: WNL Edema: No Peripheral Pulses WNL: Yes Neurological: Yes: Alert, Oriented Psychiatric: Yes: Alert, Oriented Labs: CBC, BMP 06/19/20 07:45 06/19/20 07:45 INR, PTT INR 1.18 (0.83-1.09) H 06/17/20 22:21 Problem List - Problems (1) Pneumonia Assessment/Plan: -Pulmonary consult -COVID 19 PCR negative -ID consult -Started on Azithromycin + Rocephin -Nasal O2 PRN to keep SpO2>90% -CT Chest:Compared to prior chest x-ray dated 06/17/[address] scan of the chest dated 05/18/2010 sutures and pleural thickening again noted in the right lower lobe, laterally with mild adjacent atelectatic changes versus scarring that has slightly increased since the prior exam. No groundglass opacities/infiltrates are identified. Previously visualized approximately 5 mm nodule in the left lung base, laterally is again seen without interval change. Problems reviewed: Yes Code(s): J18.9 - PNEUMONIA, UNSPECIFIED ORGANISM (2) CAD (coronary artery disease) Assessment/Plan: -Continue Plavix+ Statin + ASA Code(s): I25.10 - ATHSCL HEART DISEASE OF [place] CORONARY ARTERY W/O ANG PCTRS Qualifiers: Coronary Disease-Associated Artery/Lesion type: [place] artery [place] vs. 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 linen distributor use Diabetes mellitus complication status: without complication Qualified Code(s): E11.9 - Type 2 diabetes mellitus without complications (4) HTN (hypertension) Assessment/Plan: -Gradually start home meds -Start Valsartan (to replace olmesartan) at 40 mg po daily -Start Amlodpine at 5 mg po daily -Start Carvedilol Cr at 20 mg po daily -Hold hydralazine for now -Would gradually increase dosing as needed Problems reviewed: Yes Code(s): I10 - ESSENTIAL (PRIMARY) HYPERTENSION Qualifiers: Hypertension type: essential hypertension Qualified Code(s): I10 - Essential (primary) hypertension Assessment/Plan See problem list Discussed with daughter Ever at bedside
[2020-06-19] MEDS: CEFTRIAXONE 1 GM in DEXTROSE 5%-WATER - 50 ML IVPB SCH (12:35)
[2020-06-19] MEDS ORDERED: CARVEDILOL PHOSPHATE CR 40 MG CAPSULE (FP) PO ONE (12:36)
--- NOTE | 2020-06-19 13:37 | PN ---
Progress Note (short form) - Note Progress Note: Breathing feels a little better today but not at baseline. No CP. No hemoptysis. No acute events overnight. CRP increased today. Intake & Output 06/16/20 06/17/20 06/18/20 06/19/20 23:59 23:59 23:59 23:59 Intake Total 50 Balance 50 Weight 180 lb 201 lb 205 lb Last Vital Signs Temp Pulse Resp BP Pulse Ox 98.7 F 75 18 157/55 L 97 06/19/20 06:58 06/19/20 06:58 06/19/20 06:58 06/19/20 06:58 06/19/20 06:58 Active Medications Acetaminophen (Tylenol -) 650 mg PO Q4H PRN PRN Reason: PAIN Albuterol/Ipratropium (Duoneb -) 1 amp NEB Q6H PRN PRN Reason: SHORTNESS OF BREATH Allopurinol (Zyloprim -) 100 mg PO DAILY [facility] Last Admin: 06/19/20 09:25 Dose: 100 mg Documented by: Amlodipine Besylate (Norvasc -) 5 mg PO DAILY [facility] Last Admin: 06/19/20 09:30 Dose: 5 mg Documented by: Aspirin (Asa -) 81 mg PO DAILY [facility] Last Admin: 06/19/20 09:25 Dose: 81 mg Documented by: Atorvastatin Calcium (Lipitor -) 10 mg PO HS [facility] Last Admin: 06/18/20 23:54 Dose: 10 mg Documented by: Carvedilol (Coreg Cr -) 80 mg PO DAILY [facility] Cholecalciferol (Vitamin D3 -) 1,000 unit PO DAILY [facility] Last Admin: 06/19/20 09:25 Dose: 1,000 unit Documented by: Clopidogrel Bisulfate (Plavix -) 75 mg PO DAILY [facility] Last Admin: 06/19/20 09:25 Dose: 75 mg Documented by: Docusate Sodium (Colace -) 300 mg PO HS [facility] Ezetimibe (Zetia -) 10 mg PO DAILY [facility] Last Admin: 06/19/20 09:32 Dose: 10 mg Documented by: Enoxaparin Sodium (Lovenox -) 40 mg SQ DAILY [facility] Last Admin: 06/19/20 09:29 Dose: 40 mg Documented by: Folic Acid (Folic Acid -) 1 mg PO DAILY [facility] Last Admin: 06/19/20 09:29 Dose: 1 mg Documented by: Furosemide (Lasix -) 40 mg PO DAILY [facility] Last Admin: 06/19/20 09:29 Dose: 40 mg Documented by: Ceftriaxone Sodium 1 gm/ (Dextrose) 50 mls @ 100 mls/hr IVPB DAILY [facility]; Protocol Azithromycin (Zithromax 500mg Ivpb (Pre-Docked)) 500 mg in 250 mls @ 250 mls/hr IVPB DAILY [facility] Last Admin: 06/19/20 09:33 Dose: 250 mls/hr Documented by: Insulin Aspart (Novolog Vial Sliding Scale -) 1 vial SQ ACHS [facility]; Protocol Last Admin: 06/19/20 11:03 Dose: 4 units Documented by: Multivitamins/Minerals/Vitamin C (Tab-A-Vit -) 1 tab PO DAILY [facility] Last Admin: 06/19/20 09:33 Dose: 1 tab Documented by: Valsartan (Diovan -) 40 mg PO DAILY [facility] Last Admin: 06/19/20 09:28 Dose: 40 mg Documented by: Constitutional: Yes: Well Nourished, No Distress Eyes: Yes: Conjunctiva Clear, EOM Intact HENT: Yes: Atraumatic, Normocephalic Neck: Yes: Supple, Trachea Midline Cardiovascular: Yes: Regular Rate and Rhythm Respiratory: Yes: Cough, Diminished, SOB on Exertion. No: Accessory Muscle Use, Rales, SOB, Stridor, Tachypnea, Wheezes ...Inspection: Yes: WNL ...Clubbing: No Gastrointestinal: Yes: Normal Bowel Sounds, Soft Renal/: Yes: WNL Musculoskeletal: Yes: WNL Extremities: Yes: WNL Edema: No Peripheral Pulses WNL: Yes Integumentary: Yes: WNL Neurological: Yes: WNL, Alert, Oriented ...Motor Strength: WNL Psychiatric: Yes: WNL, Alert, Oriented Labs: Laboratory Results - last 24 hr 06/17/20 06/18/20 06/18/20 22:21 13:57 16:57 WBC RBC Hgb Hct MCV MCH MCHC RDW Plt Count MPV Absolute Neuts (auto) Neutrophils % Lymphocytes % Monocytes % Eosinophils % Basophils % Nucleated RBC % Sodium Potassium Chloride Carbon Dioxide Anion Gap BUN Creatinine Est GFR (CKD-EPI)AfAm Est GFR (CKD-EPI)NonAf POC Glucometer 219 Random Glucose Calcium Total Bilirubin AST ALT Alkaline Phosphatase C-Reactive Protein Total Protein Albumin Urine Color Yellow Urine Appearance Cloudy Urine pH 6.0 Ur Specific [place] 1.008 L Urine Protein Negative Urine Glucose (UA) Negative Urine Ketones Negative Urine Blood Negative Urine Nitrite Negative Urine Bilirubin Negative Urine Urobilinogen 0.2 Ur Leukocyte Esterase Negative COVID-19 ([facility]) Not detected 06/18/20 06/19/20 06/19/20 23:56 06:48 07:45 WBC 5.7 RBC 4.22 Hgb 11.0 Hct 33.6 MCV 79.5 L MCH 26.0 MCHC 32.7 RDW 13.0 Plt Count 180 MPV 7.2 L Absolute Neuts (auto) 3.6 Neutrophils % 63.0 D Lymphocytes % 24.8 D Monocytes % 9.9 Eosinophils % 1.6 Basophils % 0.7 Nucleated RBC % 0 Sodium Potassium Chloride Carbon Dioxide Anion Gap BUN Creatinine Est GFR (CKD-EPI)AfAm Est GFR (CKD-EPI)NonAf POC Glucometer 118 104 Random Glucose Calcium Total Bilirubin AST ALT Alkaline Phosphatase C-Reactive Protein Total Protein Albumin Urine Color Urine Appearance Urine pH Ur Specific [place] Urine Protein Urine Glucose (UA) Urine Ketones Urine Blood Urine Nitrite Urine Bilirubin Urine Urobilinogen Ur Leukocyte Esterase COVID-19 ([facility]ATA) 06/19/20 06/19/20 07:45 11:00 WBC RBC Hgb Hct MCV MCH MCHC RDW Plt Count MPV Absolute Neuts (auto) Neutrophils % Lymphocytes % Monocytes % Eosinophils % Basophils % Nucleated RBC % Sodium 137 Potassium 3.8 Chloride 102 Carbon Dioxide 29 Anion Gap 6 L BUN 19.0 H Creatinine 0.8 Est GFR (CKD-EPI)AfAm 80.70 Est GFR (CKD-EPI)NonAf 69.63 POC Glucometer 233 Random Glucose 106 Calcium 8.8 Total Bilirubin 0.7 AST 13 L ALT 20 Alkaline Phosphatase 34 L C-Reactive Protein 6.1 H Total Protein 6.8 Albumin 3.2 L Urine Color Urine Appearance Urine pH Ur Specific [place] Urine Protein Urine Glucose (UA) Urine Ketones Urine Blood Urine Nitrite Urine Bilirubin Urine Urobilinogen Ur Leukocyte Esterase COVID-19 ([facility]) Imaging - Results Chest X-ray: Report Reviewed, Image Reviewed Problem List - Problems (1) Dyspnea Code(s): R06.00 - DYSPNEA, UNSPECIFIED (2) Sarcoidosis of lung Code(s): D86.0 - SARCOIDOSIS OF LUNG (3) Pneumonia Code(s): J18.9 - PNEUMONIA, UNSPECIFIED ORGANISM (4) CAD (coronary artery disease) Code(s): I25.10 - ATHSCL HEART DISEASE OF [place] CORONARY ARTERY W/O ANG PCTRS Qualifiers: Coronary Disease-Associated Artery/Lesion type: [place] artery [place] vs. transplanted heart: [place] heart Associated angina: without angina Qualified Code(s): I25.10 - Atherosclerotic heart disease of [place] coronary artery without angina pectoris (5) CKD (chronic kidney disease) Code(s): N18.9 - CHRONIC KIDNEY DISEASE, UNSPECIFIED (6) Diabetes Code(s): E11.9 - TYPE 2 DIABETES MELLITUS WITHOUT COMPLICATIONS Qualifiers: Diabetes mellitus type: type 2 Diabetes mellitus penitentiary insulin use: without penitentiary use Diabetes mellitus complication status: without complication Qualified Code(s): E11.9 - Type 2 diabetes mellitus without complications (7) HTN (hypertension) Code(s): I10 - ESSENTIAL (PRIMARY) HYPERTENSION Qualifiers: Hypertension type: essential hypertension Qualified Code(s): I10 - Essential (primary) hypertension (8) Hyperlipidemia Code(s): E78.5 - HYPERLIPIDEMIA, UNSPECIFIED Qualifiers: Hyperlipidemia type: pure hypercholesterolemia Qualified Code(s): E78.00 - Pure hypercholesterolemia, unspecified Assessment/Plan Empiric Zithromax/Rocephin per ID Repeat COVID19 serology Follow Inflammatory markers in the AM Follow cultures No smoking VTE prophylaxis No clear indication for systemic steroids at this time Outpatient PFTs Will need followup of 5mm Pulmonary nodule as an outpatient Dr Wilson Problem List - Problems (1) Dyspnea Code(s): R06.00 - DYSPNEA, UNSPECIFIED (2) Sarcoidosis of lung Code(s): D86.0 - SARCOIDOSIS OF LUNG (3) Pneumonia Code(s): J18.9 - PNEUMONIA, UNSPECIFIED ORGANISM (4) CAD (coronary artery disease) Code(s): I25.10 - ATHSCL HEART DISEASE OF [place] CORONARY ARTERY W/O ANG PCTRS Qualifiers: Coronary Disease-Associated Artery/Lesion type: [place] artery [place] vs. transplanted heart: [place] heart Associated angina: without angina Qualified Code(s): I25.10 - Atherosclerotic heart disease of [place] coronary artery without angina pectoris (5) CKD (chronic kidney disease) Code(s): N18.9 - CHRONIC KIDNEY DISEASE, UNSPECIFIED (6) Diabetes Code(s): E11.9 - TYPE 2 DIABETES MELLITUS WITHOUT COMPLICATIONS Qualifiers: Diabetes mellitus type: type 2 Diabetes mellitus terminal carman insulin use: without terminal carman use Diabetes mellitus complication status: without complication Qualified Code(s): E11.9 - Type 2 diabetes mellitus without complications (7) HTN (hypertension) Code(s): I10 - ESSENTIAL (PRIMARY) HYPERTENSION Qualifiers: Hypertension type: essential hypertension Qualified Code(s): I10 - Essential (primary) hypertension (8) Hyperlipidemia Code(s): E78.5 - HYPERLIPIDEMIA, UNSPECIFIED Qualifiers: Hyperlipidemia type: pure hypercholesterolemia Qualified Code(s): E78.00 - Pure hypercholesterolemia, unspecified
[2020-06-19] MEDS: ATORVASTATIN CA 10 MG TABLET (FP) PO SCH (21:14)
[2020-06-19] MEDS: DOCUSATE SODIUM 100 MG CAPSULE (FP) PO SCH (21:14)
--- NOTE | 2020-06-19 23:22 | PN ---
Progress Note, Physician Chief Complaint: AWAKE IN BED NO COMPLAINTS DENIES FEVER/ CHILLS NO C/O CHEST PAIN/DYSPNEA/COUGH COVID PCR(-) - Current Medication List Current Medications: Active Medications Acetaminophen (Tylenol -) 650 mg PO Q4H PRN PRN Reason: PAIN Albuterol/Ipratropium (Duoneb -) 1 amp NEB Q6H PRN PRN Reason: SHORTNESS OF BREATH Allopurinol (Zyloprim -) 100 mg PO DAILY [facility] Last Admin: 06/19/20 09:25 Dose: 100 mg Documented by: Amlodipine Besylate (Norvasc -) 5 mg PO DAILY [facility] Last Admin: 06/19/20 09:30 Dose: 5 mg Documented by: Aspirin (Asa -) 81 mg PO DAILY [facility] Last Admin: 06/19/20 09:25 Dose: 81 mg Documented by: Atorvastatin Calcium (Lipitor -) 10 mg PO HS [facility] Last Admin: 06/19/20 21:14 Dose: 10 mg Documented by: Carvedilol (Coreg Cr -) 80 mg PO DAILY [facility] Cholecalciferol (Vitamin D3 -) 1,000 unit PO DAILY [facility] Last Admin: 06/19/20 09:25 Dose: 1,000 unit Documented by: Clopidogrel Bisulfate (Plavix -) 75 mg PO DAILY [facility] Last Admin: 06/19/20 09:25 Dose: 75 mg Documented by: Docusate Sodium (Colace -) 300 mg PO HS [facility] Last Admin: 06/19/20 21:14 Dose: 300 mg Documented by: Ezetimibe (Zetia -) 10 mg PO DAILY [facility] Last Admin: 06/19/20 09:32 Dose: 10 mg Documented by: Enoxaparin Sodium (Lovenox -) 40 mg SQ DAILY [facility] Last Admin: 06/19/20 09:29 Dose: 40 mg Documented by: Folic Acid (Folic Acid -) 1 mg PO DAILY [facility] Last Admin: 06/19/20 09:29 Dose: 1 mg Documented by: Furosemide (Lasix -) 40 mg PO DAILY [facility] Last Admin: 06/19/20 09:29 Dose: 40 mg Documented by: Ceftriaxone Sodium 1 gm/ (Dextrose) 50 mls @ 100 mls/hr IVPB DAILY [facility]; Protocol Last Admin: 06/19/20 12:35 Dose: 100 mls/hr Documented by: Azithromycin (Zithromax 500mg Ivpb (Pre-Docked)) 500 mg in 250 mls @ 250 mls/hr IVPB DAILY [facility] Last Admin: 06/19/20 09:33 Dose: 250 mls/hr Documented by: Insulin Aspart (Novolog Vial Sliding Scale -) 1 vial SQ ACHS [facility]; Protocol Last Admin: 06/19/20 21:18 Dose: 2 units Documented by: Multivitamins/Minerals/Vitamin C (Tab-A-Vit -) 1 tab PO DAILY [facility] Last Admin: 06/19/20 09:33 Dose: 1 tab Documented by: Valsartan (Diovan -) 40 mg PO DAILY [facility] Last Admin: 06/19/20 09:28 Dose: 40 mg Documented by: - Objective Vital Signs: Vital Signs Temperature 98.7 F 06/19/20 21:29 Pulse Rate 72 06/19/20 21:29 Respiratory Rate 18 06/19/20 21:29 Blood Pressure 151/55 L 06/19/20 21:29 O2 Sat by Pulse Oximetry (%) 96 06/19/20 21:29 Constitutional: Yes: No Distress Eyes: Yes: Conjunctiva Clear Cardiovascular: Yes: Regular Rate and Rhythm, S1, S2 Respiratory: Yes: Rhonchi Gastrointestinal: Yes: Normal Bowel Sounds, Soft Labs: CBC, BMP 06/19/20 07:45 06/19/20 07:45 INR, PTT INR 1.18 (0.83-1.09) H 06/17/20 22:21 Assessment/Plan R/O PNEUMONIA FEVER/ LEUKOCYTOSIS IMPROVED PCN ALLERGY CONTINUE ZITHROMAX/ CEFTRIAXONE
[2020-06-20] MEDS: INSULIN SLIDING SCALE (NOVOLOG) 1 VIAL SQ SCH ×5 (06:29→21:30)
[2020-06-20] MEDS ORDERED: cefTRIAXone SODIUM 1 GM VIAL ONE (09:41)
[2020-06-20] MEDS ORDERED: DEXTROSE 5%-WATER - 50 ML IVPB ONE (09:41)
[2020-06-20] MEDS: AZITHROMYCIN IVPB 500 MG/250 ML BAG IVPB SCH (10:08)
[2020-06-20] MEDS: ASPIRIN 81 MG CHEWABLE TABLETS PO SCH (10:10)
[2020-06-20] MEDS: ALLOPURINOL 100 MG TABLET (FP) PO SCH (10:10)
[2020-06-20] MEDS: FUROSEMIDE 40 MG TABLET (FP) PO SCH (10:10)
[2020-06-20] MEDS: CLOPIDOGREL BISULFATE 75 MG TABLET (FP) PO SCH (10:10)
[2020-06-20] MEDS: EZETIMIBE 10 MG TABLET (FP) PO SCH (10:10)
[2020-06-20] MEDS: MULTIVITAMINS (DAILY MVI) TABLET (FP) PO SCH (10:11)
[2020-06-20] MEDS: VALSARTAN 40 MG TABLET PO SCH (10:12)
[2020-06-20] MEDS: amLODIPine BESYLATE 5 MG TABLET (FP) PO SCH (10:13)
[2020-06-20] MEDS: ENOXAPARIN NA (PORCINE) 40 MG/0.4 ML DISP.SYRIN SQ SCH (10:13)
[2020-06-20] MEDS: FOLIC ACID 1 MG TABLET (FP) PO SCH (10:13)
[2020-06-20] MEDS: CHOLECALCIFEROL (VIT D3) 1,000 UNIT (25 MCG) TABLET PO SCH (10:14)
[2020-06-20] MEDS ORDERED: PT OWN MED DRAWER 7, Y5N ONE (10:16)
[2020-06-20] MEDS: CARVEDILOL PHOSPHATE CR 40 MG CAPSULE (FP) PO SCH (10:21)
[2020-06-20] MEDS: CEFTRIAXONE 1 GM in DEXTROSE 5%-WATER - 50 ML IVPB SCH (12:15)
--- NOTE | 2020-06-20 12:49 | PN ---
Progress Note (short form) - Note Progress Note: Breathing feels a little better today. No CP. No hemoptysis. No acute events overnight. CRP decreasing. Intake & Output 06/17/20 06/18/20 06/19/20 06/20/20 23:59 23:59 23:59 23:59 Intake Total 350 50 Balance 350 50 Weight 180 lb 201 lb 205 lb 207 lb 4 oz Last Vital Signs Temp Pulse Resp BP Pulse Ox 98.4 F 70 18 152/45 L 96 06/20/20 06:00 06/20/20 06:00 06/20/20 06:00 06/20/20 06:00 06/20/20 06:00 Active Medications Acetaminophen (Tylenol -) 650 mg PO Q4H PRN PRN Reason: PAIN Albuterol/Ipratropium (Duoneb -) 1 amp NEB Q6H PRN PRN Reason: SHORTNESS OF BREATH Allopurinol (Zyloprim -) 100 mg PO DAILY [facility] Last Admin: 06/20/20 10:10 Dose: 100 mg Documented by: Amlodipine Besylate (Norvasc -) 5 mg PO DAILY [facility] Last Admin: 06/20/20 10:13 Dose: 5 mg Documented by: Aspirin (Asa -) 81 mg PO DAILY [facility] Last Admin: 06/20/20 10:10 Dose: 81 mg Documented by: Atorvastatin Calcium (Lipitor -) 10 mg PO [facility] Last Admin: 06/19/20 21:14 Dose: 10 mg Documented by: Carvedilol (Coreg Cr -) 80 mg PO DAILY [facility] Last Admin: 06/20/20 10:21 Dose: 80 mg Documented by: Cholecalciferol (Vitamin D3 -) 1,000 unit PO DAILY [facility] Last Admin: 06/20/20 10:14 Dose: 1,000 unit Documented by: Clopidogrel Bisulfate (Plavix -) 75 mg PO DAILY [facility] Last Admin: 06/20/20 10:10 Dose: 75 mg Documented by: Docusate Sodium (Colace -) 300 mg PO [facility] Last Admin: 06/19/20 21:14 Dose: 300 mg Documented by: Ezetimibe (Zetia -) 10 mg PO DAILY [facility] Last Admin: 06/20/20 10:10 Dose: 10 mg Documented by: Enoxaparin Sodium (Lovenox -) 40 mg SQ DAILY [facility] Last Admin: 06/20/20 10:13 Dose: 40 mg Documented by: Folic Acid (Folic Acid -) 1 mg PO DAILY [facility] Last Admin: 06/20/20 10:13 Dose: 1 mg Documented by: Furosemide (Lasix -) 40 mg PO DAILY [facility] Last Admin: 06/20/20 10:10 Dose: 40 mg Documented by: Ceftriaxone Sodium 1 gm/ (Dextrose) 50 mls @ 100 mls/hr IVPB DAILY [facility]; Protocol Last Admin: 06/19/20 12:35 Dose: 100 mls/hr Documented by: Azithromycin (Zithromax 500mg Ivpb (Pre-Docked)) 500 mg in 250 mls @ 250 mls/hr IVPB DAILY [facility] Last Admin: 06/20/20 10:08 Dose: 250 mls/hr Documented by: Insulin Aspart (Novolog Vial Sliding Scale -) 1 vial SQ ACHS [facility]; Protocol Last Admin: 06/20/20 12:03 Dose: 4 units Documented by: Multivitamins/Minerals/Vitamin C (Tab-A-Vit -) 1 tab PO DAILY [facility] Last Admin: 06/20/20 10:11 Dose: 1 tab Documented by: Valsartan (Diovan -) 40 mg PO DAILY [facility] Last Admin: 06/20/20 10:12 Dose: 40 mg Documented by: Constitutional: Yes: Well Nourished, No Distress Eyes: Yes: Conjunctiva Clear, EOM Intact HENT: Yes: Atraumatic, Normocephalic Neck: Yes: Supple, Trachea Midline Cardiovascular: Yes: Regular Rate and Rhythm Respiratory: Yes: Cough, Diminished, SOB on Exertion. No: Accessory Muscle Use, Rales, SOB, Stridor, Tachypnea, Wheezes ...Inspection: Yes: WNL ...Clubbing: No Gastrointestinal: Yes: Normal Bowel Sounds, Soft Renal/: Yes: WNL Musculoskeletal: Yes: WNL Extremities: Yes: WNL Edema: No Peripheral Pulses WNL: Yes Integumentary: Yes: WNL Neurological: Yes: WNL, Alert, Oriented ...Motor Strength: WNL Psychiatric: Yes: WNL, Alert, Oriented Labs: Laboratory Results - last 24 hr 06/19/20 06/19/20 06/19/20 16:15 16:17 21:16 D-Dimer POC Glucometer 168 155 C-Reactive Protein COVID-19 ([facility]) Not detected 06/20/20 06/20/20 06/20/20 06:28 08:05 08:05 D-Dimer 521 H POC Glucometer 137 C-Reactive Protein 4.3 H COVID-19 ([facility]) 06/20/20 12:01 D-Dimer POC Glucometer 239 C-Reactive Protein COVID-19 ([facility]) Imaging - Results Chest X-ray: Report Reviewed, Image Reviewed Problem List - Problems (1) Dyspnea Code(s): R06.00 - DYSPNEA, UNSPECIFIED (2) Sarcoidosis of lung Code(s): D86.0 - SARCOIDOSIS OF LUNG (3) Pneumonia Code(s): J18.9 - PNEUMONIA, UNSPECIFIED ORGANISM (4) CAD (coronary artery disease) Code(s): I25.10 - ATHSCL HEART DISEASE OF [place] CORONARY ARTERY W/O ANG PCTRS Qualifiers: Coronary Disease-Associated Artery/Lesion type: [place] artery [place] vs. transplanted heart: [place] heart Associated angina: without angina Qualified Code(s): I25.10 - Atherosclerotic heart disease of [place] coronary artery without angina pectoris (5) CKD (chronic kidney disease) Code(s): N18.9 - CHRONIC KIDNEY DISEASE, UNSPECIFIED (6) Diabetes Code(s): E11.9 - TYPE 2 DIABETES MELLITUS WITHOUT COMPLICATIONS Qualifiers: Diabetes mellitus type: type 2 Diabetes mellitus manager intermediate insulin use: without manager intermediate use Diabetes mellitus complication status: without complication Qualified Code(s): E11.9 - Type 2 diabetes mellitus without complications (7) HTN (hypertension) Code(s): I10 - ESSENTIAL (PRIMARY) HYPERTENSION Qualifiers: Hypertension type: essential hypertension Qualified Code(s): I10 - Essential (primary) hypertension (8) Hyperlipidemia Code(s): E78.5 - HYPERLIPIDEMIA, UNSPECIFIED Qualifiers: Hyperlipidemia type: pure hypercholesterolemia Qualified Code(s): E78.00 - Pure hypercholesterolemia, unspecified Assessment/Plan ABX per ID Repeat COVID19 serology negative No smoking VTE prophylaxis No clear indication for systemic steroids at this time Outpatient PFTs Followup of LLL 5mm Pulmonary nodule as an outpatient Dr Wilson Problem List - Problems (1) Dyspnea Code(s): R06.00 - DYSPNEA, UNSPECIFIED (2) Sarcoidosis of lung Code(s): D86.0 - SARCOIDOSIS OF LUNG (3) Pneumonia Code(s): J18.9 - PNEUMONIA, UNSPECIFIED ORGANISM (4) CAD (coronary artery disease) Code(s): I25.10 - ATHSCL HEART DISEASE OF [place] CORONARY ARTERY W/O ANG PCTRS Qualifiers: Coronary Disease-Associated Artery/Lesion type: [place] artery [place] vs. transplanted heart: [place] heart Associated angina: without angina Qualified Code(s): I25.10 - Atherosclerotic heart disease of [place] coronary artery without angina pectoris (5) CKD (chronic kidney disease) Code(s): N18.9 - CHRONIC KIDNEY DISEASE, UNSPECIFIED (6) Diabetes Code(s): E11.9 - TYPE 2 DIABETES MELLITUS WITHOUT COMPLICATIONS Qualifiers: Diabetes mellitus type: type 2 Diabetes mellitus manager intermediate insulin use: without manager intermediate use Diabetes mellitus complication status: without complication Qualified Code(s): E11.9 - Type 2 diabetes mellitus without complications (7) HTN (hypertension) Code(s): I10 - ESSENTIAL (PRIMARY) HYPERTENSION Qualifiers: Hypertension type: essential hypertension Qualified Code(s): I10 - Essential (primary) hypertension (8) Hyperlipidemia Code(s): E78.5 - HYPERLIPIDEMIA, UNSPECIFIED Qualifiers: Hyperlipidemia type: pure hypercholesterolemia Qualified Code(s): E78.00 - Pure hypercholesterolemia, unspecified
--- NOTE | 2020-06-20 13:03 | PN ---
Progress Note, Physician Chief Complaint: Pneumonia History of Present Illness: Ms. Murphy is an 79 y/o F with hx of CAD s/p 2 stents, sarcoidosis, HTN, DL, presented with 1 day of having fevers and productive cough. She reports that throughout the day she had been experiencing body aches and a productive cough of yellow/brownish colored sputum. The patient reports that she had called her physician who had prescribed her cefidinir 300 mg and had taken one dose today. She had also taken tylenol at home which had temporarily reduced her fever. She also endorses a sore throat without chest pain, chest tightness, headache, dizziness, lightheadedness, diarrhea, constipation or any symptoms. CTAP shows no pneumonia 06/19/20: Feels better, denies any SOB Seen by pulmonary On IV zithro+ rocephin Legionella culture negative SC- preliminary negative afebrile leukocytosis resolved COVID 19 PCR negative 06/20/20: Repeat COVID 19 PCR negative Feels much better today - Current Medication List Current Medications: Active Medications Acetaminophen (Tylenol -) 650 mg PO Q4H PRN PRN Reason: PAIN Albuterol/Ipratropium (Duoneb -) 1 amp NEB Q6H PRN PRN Reason: SHORTNESS OF BREATH Allopurinol (Zyloprim -) 100 mg PO DAILY [facility] Last Admin: 06/20/20 10:10 Dose: 100 mg Documented by: Amlodipine Besylate (Norvasc -) 5 mg PO DAILY [facility] Last Admin: 06/20/20 10:13 Dose: 5 mg Documented by: Aspirin (Asa -) 81 mg PO DAILY [facility] Last Admin: 06/20/20 10:10 Dose: 81 mg Documented by: Atorvastatin Calcium (Lipitor -) 10 mg PO HS [facility] Last Admin: 06/19/20 21:14 Dose: 10 mg Documented by: Carvedilol (Coreg Cr -) 80 mg PO DAILY [facility] Last Admin: 06/20/20 10:21 Dose: 80 mg Documented by: Cholecalciferol (Vitamin D3 -) 1,000 unit PO DAILY [facility] Last Admin: 06/20/20 10:14 Dose: 1,000 unit Documented by: Clopidogrel Bisulfate (Plavix -) 75 mg PO DAILY [facility] Last Admin: 06/20/20 10:10 Dose: 75 mg Documented by: Docusate Sodium (Colace -) 300 mg PO HS [facility] Last Admin: 06/19/20 21:14 Dose: 300 mg Documented by: Ezetimibe (Zetia -) 10 mg PO DAILY [facility] Last Admin: 06/20/20 10:10 Dose: 10 mg Documented by: Enoxaparin Sodium (Lovenox -) 40 mg SQ DAILY [facility] Last Admin: 06/20/20 10:13 Dose: 40 mg Documented by: Folic Acid (Folic Acid -) 1 mg PO DAILY [facility] Last Admin: 06/20/20 10:13 Dose: 1 mg Documented by: Furosemide (Lasix -) 40 mg PO DAILY [facility] Last Admin: 06/20/20 10:10 Dose: 40 mg Documented by: Ceftriaxone Sodium 1 gm/ (Dextrose) 50 mls @ 100 mls/hr IVPB DAILY [facility]; Protocol Last Admin: 06/19/20 12:35 Dose: 100 mls/hr Documented by: Azithromycin (Zithromax 500mg Ivpb (Pre-Docked)) 500 mg in 250 mls @ 250 mls/hr IVPB DAILY [facility] Last Admin: 06/20/20 10:08 Dose: 250 mls/hr Documented by: Insulin Aspart (Novolog Vial Sliding Scale -) 1 vial SQ ACHS [facility]; Protocol Last Admin: 06/20/20 12:03 Dose: 4 units Documented by: Multivitamins/Minerals/Vitamin C (Tab-A-Vit -) 1 tab PO DAILY [facility] Last Admin: 06/20/20 10:11 Dose: 1 tab Documented by: Valsartan (Diovan -) 40 mg PO DAILY [facility] Last Admin: 06/20/20 10:12 Dose: 40 mg Documented by: - Objective Vital Signs: Vital Signs Temperature 98.4 F 06/20/20 06:00 Pulse Rate 70 06/20/20 06:00 Respiratory Rate 18 06/20/20 06:00 Blood Pressure 152/45 L 06/20/20 06:00 O2 Sat by Pulse Oximetry (%) 96 06/20/20 06:00 Constitutional: Yes: Well Nourished, No Distress, Calm Cardiovascular: Yes: Regular Rate and Rhythm Respiratory: Yes: Regular, CTA Bilaterally, On Nasal O2 Gastrointestinal: Yes: Normal Bowel Sounds, Soft Genitourinary: Yes: WNL Musculoskeletal: Yes: WNL Extremities: Yes: WNL Edema: No Peripheral Pulses WNL: Yes Neurological: Yes: Alert, Oriented Psychiatric: Yes: Alert, Oriented Labs: CBC, BMP 06/19/20 07:45 06/19/20 07:45 INR, PTT INR 1.18 (0.83-1.09) H 06/17/20 22:21 Problem List - Problems (1) Pneumonia Assessment/Plan: -Pulmonary consult -COVID 19 PCR negative -ID consult -Started on Azithromycin + Rocephin -Nasal O2 PRN to keep SpO2>90% -CT Chest:Compared to prior chest x-ray dated 06/17/[address] scan of the chest dated 05/18/2010 sutures and pleural thickening again noted in the right lower lobe, laterally with mild adjacent atelectatic changes versus scarring that has slightly increased since the prior exam. No groundglass opacities/infiltrates are identified. Previously visualized approximately 5 mm nodule in the left lung base, laterally is again seen without interval change. Problems reviewed: Yes Code(s): J18.9 - PNEUMONIA, UNSPECIFIED ORGANISM (2) CAD (coronary artery disease) Assessment/Plan: -Continue Plavix+ Statin + ASA Problems reviewed: Yes Code(s): I25.10 - ATHSCL HEART DISEASE OF [place] CORONARY ARTERY W/O ANG PCTRS Qualifiers: Coronary Disease-Associated Artery/Lesion type: [place] artery [place] vs. transplanted heart: [place] heart Associated angina: without angina Qualified Code(s): I25.10 - Atherosclerotic heart disease of [place] coronary artery without angina pectoris (3) Diabetes Assessment/Plan: A1c at 7.0 -BGM AC HS -Diabetic low sodium diet -ISS Problems reviewed: Yes Code(s): E11.9 - TYPE 2 DIABETES MELLITUS WITHOUT COMPLICATIONS Qualifiers: Diabetes mellitus type: type 2 Diabetes mellitus [facility] insulin use: [facility] use Diabetes mellitus complication status: without compli cation Qualified Code(s): E11.9 - Type 2 diabetes mellitus without compli cations (4) HTN (hypertension) Assessment/Plan: -Gradually start home meds -Start Valsartan (to replace olmesartan) at 40 mg po daily -Start Amlodpine at 5 mg po daily -Start Carvedilol Cr at 20 mg po daily -Hold hydralazine for now -Would gradually increase dosing as needed Problems reviewed: Yes Code(s): I10 - ESSENTIAL (PRIMARY) HYPERTENSION Qualifiers: Hypertension type: essential hypertension Qualified Code(s): I10 - Essential (primary) hypertension Assessment/Plan See problem list Discussed with daughter Ever over the phone
[2020-06-20] MEDS: DOCUSATE SODIUM 100 MG CAPSULE (FP) PO SCH ×2 (21:25→21:30)
[2020-06-20] MEDS: ATORVASTATIN CA 10 MG TABLET (FP) PO SCH (21:25)
[2020-06-21] MEDS: INSULIN SLIDING SCALE (NOVOLOG) 1 VIAL SQ SCH ×4 (06:09→21:34)
--- NOTE | 2020-06-21 09:25 | PN ---
Progress Note, Physician History of Present Illness: Ms. Murphy is an 79 y/o F with hx of CAD s/p 2 stents, sarcoidosis, HTN, DL, presented with 1 day of having fevers and productive cough. She reports that throughout the day she had been experiencing body aches and a productive cough of yellow/brownish colored sputum. The patient reports that she had called her physician who had prescribed her cefidinir 300 mg and had taken one dose today. She had also taken tylenol at home which had temporarily reduced her fever. She also endorses a sore throat without chest pain, chest tightness, headache, dizziness, lightheadedness, diarrhea, constipation or any symptoms. CTAP shows no pneumonia 06/19/20: Feels better, denies any SOB Seen by pulmonary On IV zithro+ rocephin Legionella culture negative SC- preliminary negative afebrile leukocytosis resolved COVID 19 PCR negative 06/20/20: Repeat COVID 19 PCR negative Feels much better today - Current Medication List Current Medications: Active Medications Acetaminophen (Tylenol -) 650 mg PO Q4H PRN PRN Reason: PAIN Albuterol/Ipratropium (Duoneb -) 1 amp NEB Q6H PRN PRN Reason: SHORTNESS OF BREATH Allopurinol (Zyloprim -) 100 mg PO DAILY [facility] Last Admin: 06/20/20 10:10 Dose: 100 mg Documented by: Amlodipine Besylate (Norvasc -) 5 mg PO DAILY [facility] Last Admin: 06/20/20 10:13 Dose: 5 mg Documented by: Aspirin (Asa -) 81 mg PO DAILY [facility] Last Admin: 06/20/20 10:10 Dose: 81 mg Documented by: Atorvastatin Calcium (Lipitor -) 10 mg PO [facility] Last Admin: 06/20/20 21:25 Dose: 10 mg Documented by: Carvedilol (Coreg Cr -) 80 mg PO DAILY [facility] Last Admin: 06/20/20 10:21 Dose: 80 mg Documented by: Cholecalciferol (Vitamin D3 -) 1,000 unit PO DAILY [facility] Last Admin: 06/20/20 10:14 Dose: 1,000 unit Documented by: Clopidogrel Bisulfate (Plavix -) 75 mg PO DAILY [facility] Last Admin: 06/20/20 10:10 Dose: 75 mg Documented by: Docusate Sodium (Colace -) 300 mg PO [facility] Last Admin: 06/20/20 21:30 Dose: Not Given Documented by: Ezetimibe (Zetia -) 10 mg PO DAILY [facility] Last Admin: 06/20/20 10:10 Dose: 10 mg Documented by: Enoxaparin Sodium (Lovenox -) 40 mg SQ DAILY [facility] Last Admin: 06/20/20 10:13 Dose: 40 mg Documented by: Folic Acid (Folic Acid -) 1 mg PO DAILY [facility] Last Admin: 06/20/20 10:13 Dose: 1 mg Documented by: Furosemide (Lasix -) 40 mg PO DAILY [facility] Last Admin: 06/20/20 10:10 Dose: 40 mg Documented by: Ceftriaxone Sodium 1 gm/ (Dextrose) 50 mls @ 100 mls/hr IVPB DAILY [facility]; Protocol Last Admin: 06/20/20 12:15 Dose: 100 mls/hr Documented by: Azithromycin (Zithromax 500mg Ivpb (Pre-Docked)) 500 mg in 250 mls @ 250 mls/hr IVPB DAILY [facility] Last Admin: 06/20/20 10:08 Dose: 250 mls/hr Documented by: Insulin Aspart (Novolog Vial Sliding Scale -) 1 vial SQ ACHS [facility]; Protocol Last Admin: 06/21/20 06:09 Dose: Not Given Documented by: Multivitamins/Minerals/Vitamin C (Tab-A-Vit -) 1 tab PO DAILY [facility] Last Admin: 06/20/20 10:11 Dose: 1 tab Documented by: Valsartan (Diovan -) 40 mg PO DAILY [facility] Last Admin: 06/20/20 10:12 Dose: 40 mg Documented by: - Objective Vital Signs: Vital Signs Temperature 98.4 F 06/21/20 06:00 Pulse Rate 75 06/21/20 06:00 Respiratory Rate 18 06/21/20 06:00 Blood Pressure 133/54 L 06/21/20 06:00 O2 Sat by Pulse Oximetry (%) 95 06/21/20 06:00 Cardiovascular: Yes: S1, S2 Respiratory: Yes: Regular, CTA Bilaterally Gastrointestinal: Yes: Normal Bowel Sounds, Soft Labs: CBC, BMP 06/19/20 07:45 06/19/20 07:45 INR, PTT INR 1.18 (0.83-1.09) H 06/17/20 22:21 Assessment/Plan - Problems (1) Pneumonia Assessment/Plan: -Pulmonary consult -COVID 19 PCR negative -ID consult -Started on Azithromycin + Rocephin -Nasal O2 PRN to keep SpO2>90% -CT Chest:Compared to prior chest x-ray dated 06/17/[address] scan of the chest dated 05/18/2010 sutures and pleural thickening again noted in the right lower lobe, laterally with mild adjacent atelectatic changes versus scarring that has slightly increased since the prior exam. No groundglass opacities/infiltrates are identified. Previously visualized approximately 5 mm nodule in the left lung base, laterally is again seen without interval change. Problems reviewed: Yes Code(s): J18.9 - PNEUMONIA, UNSPECIFIED ORGANISM (2) CAD (coronary artery disease) Assessment/Plan: -Continue Plavix+ Statin + ASA Problems reviewed: Yes Code(s): I25.10 - ATHSCL HEART DISEASE OF [place] CORONARY ARTERY W/O ANG PCTRS Qualifiers: Coronary Disease-Associated Artery/Lesion type: [place] artery [place] vs. transplanted heart: [place] heart Associated angina: without angina Qualified Code(s): I25.10 - Atherosclerotic heart disease of [place] coronary artery without angina pectoris (3) Diabetes Assessment/Plan: A1c at 7.0 -BGM AC HS -Diabetic low sodium diet -ISS Problems reviewed: Yes Code(s): E11.9 - TYPE 2 DIABETES MELLITUS WITHOUT COMPLICATIONS Qualifiers: Diabetes mellitus type: type 2 Diabetes mellitus assisted insulin use: without assisted use Diabetes mellitus complication status: without complication Qualified Code(s): E11.9 - Type 2 diabetes mellitus without complications (4) HTN (hypertension) Assessment/Plan: -Gradually start home meds -Start Valsartan (to replace olmesartan) at 40 mg po daily -Start Amlodpine at 5 mg po daily -Start Carvedilol Cr at 20 mg po daily -Hold hydralazine for now -Would gradually increase dosing as needed Problems reviewed: Yes Code(s): I10 - ESSENTIAL (PRIMARY) HYPERTENSION Qualifiers: Hypertension type: essential hypertension Qualified Code(s): I10 - Essential (primary) hypertension
[2020-06-21] MEDS ORDERED: PT OWN MED DRAWER 7, Y5N ONE (09:30)
[2020-06-21] MEDS ORDERED: cefTRIAXone SODIUM 1 GM VIAL ONE (09:31)
[2020-06-21] MEDS ORDERED: DEXTROSE 5%-WATER - 50 ML IVPB ONE (09:31)
[2020-06-21] MEDS: ASPIRIN 81 MG CHEWABLE TABLETS PO SCH (10:02)
[2020-06-21] MEDS: CLOPIDOGREL BISULFATE 75 MG TABLET (FP) PO SCH (10:03)
[2020-06-21] MEDS: VALSARTAN 40 MG TABLET PO SCH (10:03)
[2020-06-21] MEDS: ALLOPURINOL 100 MG TABLET (FP) PO SCH (10:03)
[2020-06-21] MEDS: FUROSEMIDE 40 MG TABLET (FP) PO SCH (10:04)
[2020-06-21] MEDS: CHOLECALCIFEROL (VIT D3) 1,000 UNIT (25 MCG) TABLET PO SCH (10:04)
[2020-06-21] MEDS: amLODIPine BESYLATE 5 MG TABLET (FP) PO SCH (10:04)
[2020-06-21] MEDS: FOLIC ACID 1 MG TABLET (FP) PO SCH (10:04)
[2020-06-21] MEDS: ENOXAPARIN NA (PORCINE) 40 MG/0.4 ML DISP.SYRIN SQ SCH (10:05)
[2020-06-21] MEDS: MULTIVITAMINS (DAILY MVI) TABLET (FP) PO SCH (10:07)
[2020-06-21] MEDS: AZITHROMYCIN IVPB 500 MG/250 ML BAG IVPB SCH (10:07)
[2020-06-21] MEDS: EZETIMIBE 10 MG TABLET (FP) PO SCH (10:07)
--- NOTE | 2020-06-21 11:47 | PN ---
Progress Note (short form) - Note Progress Note: continues with cough no fevers covid pcr negative (2) no fevers Vital Signs Period Temp Pulse Resp BP Sys/Nash Pulse Ox Last 24 Hr 98.2 F-98.8 F 67-75 18-18 133-157/54-56 95-98 cor-rrr lungs clear abd soft,nt ext no edema CBC, BMP 06/19/20 07:45 06/19/20 07:45 Microbiology 06/18/20 06:24 Blood - Peripheral Venous Blood Culture - Preliminary NO GROWTH OBTAINED AFTER 72 HOURS, INCUBATION TO CONTINUE FOR 2 DAYS. 06/18/20 06:15 Blood - Peripheral Venous Blood Culture - Preliminary NO GROWTH OBTAINED AFTER 72 HOURS, INCUBATION TO CONTINUE FOR 2 DAYS. 06/18/20 11:59 Sputum - Expectorated Gram Stain - Final 06/18/20 11:59 Sputum - Expectorated Sputum Culture - Final N[facility] [place] 06/18/20 13:57 Urine For Antigen Detection Legionella Antigen - Final 06/18/20 13:57 Urine For Antigen Detection Streptococcus pneumoniae Antigen (M - Final a/p clinical picture pneumonia/bronchitis day #4 rocephin/zithromax should be able to d/c antiibotics in am (day #5) Problem List - Problems (1) Fever Code(s): R50.9 - FEVER, UNSPECIFIED (2) Cough Code(s): R05 - COUGH (3) Sarcoidosis of lung Code(s): D86.0 - SARCOIDOSIS OF LUNG (4) CAD (coronary artery disease) Code(s): I25.10 - ATHSCL HEART DISEASE OF [place] CORONARY ARTERY W/O ANG PCTRS Qualifiers: Coronary Disease-Associated Artery/Lesion type: [place] artery [place] vs. transplanted heart: [place] heart Associated angina: without angina Qualified Code(s): I25.10 - Atherosclerotic heart disease of [place] coronary artery without angina pectoris (5) Penicillin allergy Code(s): Z88.0 - ALLERGY STATUS TO PENICILLIN
[2020-06-21] MEDS ORDERED: CARVEDILOL PHOSPHATE CR 10 MG CAPSULE PO SCH (12:30)
--- NOTE | 2020-06-21 12:41 | PN ---
Progress Note (short form) - Note Progress Note: OOB To chair. Breathing feels a little better today. Some dry cough. No CP. No hemoptysis. No acute events overnight. Intake & Output 06/18/20 06/19/20 06/20/20 06/21/20 23:59 23:59 23:59 23:59 Intake Total 350 350 400 Balance 350 350 400 Weight 201 lb 205 lb 207 lb 4 oz 207 lb 6 oz Last Vital Signs Temp Pulse Resp BP Pulse Ox 98.5 F 85 23 H 131/56 L 96 06/21/20 10:00 06/21/20 10:00 06/21/20 10:00 06/21/20 10:00 06/21/20 10:00 Active Medications Acetaminophen (Tylenol -) 650 mg PO Q4H PRN PRN Reason: PAIN Albuterol/Ipratropium (Duoneb -) 1 amp NEB Q6H PRN PRN Reason: SHORTNESS OF BREATH Allopurinol (Zyloprim -) 100 mg PO DAILY [facility] Last Admin: 06/21/20 10:03 Dose: 100 mg Documented by: Amlodipine Besylate (Norvasc -) 5 mg PO DAILY [facility] Last Admin: 06/21/20 10:04 Dose: 5 mg Documented by: Aspirin (Asa -) 81 mg PO DAILY [facility] Last Admin: 06/21/20 10:02 Dose: 81 mg Documented by: Atorvastatin Calcium (Lipitor -) 10 mg PO [facility] Last Admin: 06/20/20 21:25 Dose: 10 mg Documented by: Carvedilol (Coreg Cr -) 80 mg PO DAILY [facility] Cholecalciferol (Vitamin D3 -) 1,000 unit PO DAILY [facility] Last Admin: 06/21/20 10:04 Dose: 1,000 unit Documented by: Clopidogrel Bisulfate (Plavix -) 75 mg PO DAILY [facility] Last Admin: 06/21/20 10:03 Dose: 75 mg Documented by: Docusate Sodium (Colace -) 300 mg PO [facility] Last Admin: 06/20/20 21:30 Dose: Not Given Documented by: Ezetimibe (Zetia -) 10 mg PO DAILY [facility] Last Admin: 06/21/20 10:07 Dose: 10 mg Documented by: Enoxaparin Sodium (Lovenox -) 40 mg SQ DAILY [facility] Last Admin: 06/21/20 10:05 Dose: 40 mg Documented by: Folic Acid (Folic Acid -) 1 mg PO DAILY [facility] Last Admin: 06/21/20 10:04 Dose: 1 mg Documented by: Furosemide (Lasix -) 40 mg PO DAILY [facility] Last Admin: 06/21/20 10:04 Dose: 40 mg Documented by: Ceftriaxone Sodium 1 gm/ (Dextrose) 50 mls @ 100 mls/hr IVPB DAILY [facility]; Protocol Last Admin: 06/20/20 12:15 Dose: 100 mls/hr Documented by: Azithromycin (Zithromax 500mg Ivpb (Pre-Docked)) 500 mg in 250 mls @ 250 mls/hr IVPB DAILY [facility] Last Admin: 06/21/20 10:07 Dose: 250 mls/hr Documented by: Insulin Aspart (Novolog Vial Sliding Scale -) 1 vial SQ ACHS [facility]; Protocol Last Admin: 06/21/20 12:12 Dose: 6 units Documented by: Multivitamins/Minerals/Vitamin C (Tab-A-Vit -) 1 tab PO DAILY [facility] Last Admin: 06/21/20 10:07 Dose: 1 tab Documented by: Valsartan (Diovan -) 40 mg PO DAILY [facility] Last Admin: 06/21/20 10:03 Dose: 40 mg Documented by: Constitutional: Yes: Well Nourished, No Distress Eyes: Yes: Conjunctiva Clear, EOM Intact HENT: Yes: Atraumatic, Normocephalic Neck: Yes: Supple, Trachea Midline Cardiovascular: Yes: Regular Rate and Rhythm Respiratory: Yes: Cough, Diminished. No: Accessory Muscle Use, Rales, SOB, Stridor, Tachypnea, Wheezes ...Inspection: Yes: WNL ...Clubbing: No Gastrointestinal: Yes: Normal Bowel Sounds, Soft Renal/: Yes: WNL Musculoskeletal: Yes: WNL Extremities: Yes: WNL Edema: No Peripheral Pulses WNL: Yes Integumentary: Yes: WNL Neurological: Yes: WNL, Alert, Oriented ...Motor Strength: WNL Psychiatric: Yes: WNL, Alert, Oriented Labs: Laboratory Results - last 24 hr 06/20/20 06/20/20 06/21/20 16:32 21:23 06:08 POC Glucometer 219 250 134 06/21/20 12:10 POC Glucometer 292 Imaging - Results Chest X-ray: Report Reviewed, Image Reviewed Problem List - Problems (1) Dyspnea Code(s): R06.00 - DYSPNEA, UNSPECIFIED (2) Sarcoidosis of lung Code(s): D86.0 - SARCOIDOSIS OF LUNG (3) Pneumonia Code(s): J18.9 - PNEUMONIA, UNSPECIFIED ORGANISM (4) CAD (coronary artery disease) Code(s): I25.10 - ATHSCL HEART DISEASE OF [place] CORONARY ARTERY W/O ANG PCTRS Qualifiers: Coronary Disease-Associated Artery/Lesion type: [place] artery [place] vs. transplanted heart: [place] heart Associated angina: without angina Qualified Code(s): I25.10 - Atherosclerotic heart disease of [place] coronary artery witho ut angina pectoris (5) CKD (chronic kidney disease) Code(s): N18.9 - CHRONIC KIDNEY DISEASE, UNSPECIFIED (6) Diabetes Code(s): E11.9 - TYPE 2 DIABETES MELLITUS WITHOUT COMPLICATIONS Qualifiers: Diabetes mellitus type: type 2 Diabetes mellitus halfway insulin use: without halfway use Diabetes mellitus complication status: without complication Qualified Code(s): E11.9 - Type 2 diabetes mellitus without complications (7) HTN (hypertension) Code(s): I10 - ESSENTIAL (PRIMARY) HYPERTENSION Qualifiers: Hypertension type: essential hypertension Qualified Code(s): I10 - Essential (primary) hypertension (8) Hyperlipidemia Code(s): E78.5 - HYPERLIPIDEMIA, UNSPECIFIED Qualifiers: Hyperlipidemia type: pure hypercholesterolemia Qualified Code(s): E78.00 - Pure hypercholesterolemia, unspecified Assessment/Plan ABX per ID No smoking VTE prophylaxis No clear indication for systemic steroids Outpatient PFTs Followup of LLL 5mm Pulmonary nodule as an outpatient Dr Wilson Problem List - Problems (1) Dyspnea Code(s): R06.00 - DYSPNEA, UNSPECIFIED (2) Sarcoidosis of lung Code(s): D86.0 - SARCOIDOSIS OF LUNG (3) Pneumonia Code(s): J18.9 - PNEUMONIA, UNSPECIFIED ORGANISM (4) CAD (coronary artery disease) Code(s): I25.10 - ATHSCL HEART DISEASE OF [place] CORONARY ARTERY W/O ANG PCTRS Qualifiers: Coronary Disease-Associated Artery/Lesion type: [place] artery [place] vs. transplanted heart: [place] Associated angina: without angina Qualified Code(s): I25.10 - Atherosclerotic heart disease of [place] coronary artery without angina pectoris (5) CKD (chronic kidney disease) Code(s): N18.9 - CHRONIC KIDNEY DISEASE, UNSPECIFIED (6) Diabetes Code(s): E11.9 - TYPE 2 DIABETES MELLITUS WITHOUT COMPLICATIONS Qualifiers: Diabetes mellitus type: type 2 Diabetes mellitus [employer] insulin use: without halfway use Diabetes mellitus complication status: without complication Qualified Code(s): E11.9 - Type 2 diabetes mellitus without complications (7) HTN (hypertension) Code(s): I10 - ESSENTIAL (PRIMARY) HYPERTENSION Qualifiers: Hypertension type: essential hypertension Qualified Code(s): I10 - Essential (primary) hypertension (8) Hyperlipidemia Code(s): E78.5 - HYPERLIPIDEMIA, UNSPECIFIED Qualifiers: Hyperlipidemia type: pure hypercholesterolemia Qualified Code(s): E78.00 - Pure hypercholesterolemia, unspecified
[2020-06-21] MEDS: CEFTRIAXONE 1 GM in DEXTROSE 5%-WATER - 50 ML IVPB SCH (13:32)
[2020-06-21] MEDS: CARVEDILOL PHOSPHATE CR 40 MG CAPSULE (FP) PO SCH (14:43)
[2020-06-21] MEDS: DOCUSATE SODIUM 100 MG CAPSULE (FP) PO SCH (21:33)
[2020-06-21] MEDS: ATORVASTATIN CA 10 MG TABLET (FP) PO SCH (21:33)
[2020-06-22] MEDS: INSULIN SLIDING SCALE (NOVOLOG) 1 VIAL SQ SCH ×3 (06:12→16:32)
--- NOTE | 2020-06-22 07:24 | PN ---
Progress Note, Physician History of Present Illness: pulmonary alert,comfortable,-sob,less cough - Current Medication List Current Medications: Active Medications Acetaminophen (Tylenol -) 650 mg PO Q4H PRN PRN Reason: PAIN Albuterol/Ipratropium (Duoneb -) 1 amp NEB Q6H PRN PRN Reason: SHORTNESS OF BREATH Allopurinol (Zyloprim -) 100 mg PO DAILY [facility] Last Admin: 06/21/20 10:03 Dose: 100 mg Documented by: Amlodipine Besylate (Norvasc -) 5 mg PO DAILY [facility] Last Admin: 06/21/20 10:04 Dose: 5 mg Documented by: Aspirin (Asa -) 81 mg PO DAILY [facility] Last Admin: 06/21/20 10:02 Dose: 81 mg Documented by: Atorvastatin Calcium (Lipitor -) 10 mg PO [facility] Last Admin: 06/21/20 21:33 Dose: 10 mg Documented by: Carvedilol (Coreg Cr -) 80 mg PO DAILY [facility] Cholecalciferol (Vitamin D3 -) 1,000 unit PO DAILY [facility] Last Admin: 06/21/20 10:04 Dose: 1,000 unit Documented by: Clopidogrel Bisulfate (Plavix -) 75 mg PO DAILY [facility] Last Admin: 06/21/20 10:03 Dose: 75 mg Documented by: Docusate Sodium (Colace -) 300 mg PO [facility] Last Admin: 06/21/20 21:33 Dose: 300 mg Documented by: Ezetimibe (Zetia -) 10 mg PO DAILY [facility] Last Admin: 06/21/20 10:07 Dose: 10 mg Documented by: Enoxaparin Sodium (Lovenox -) 40 mg SQ DAILY [facility] Last Admin: 06/21/20 10:05 Dose: 40 mg Documented by: Folic Acid (Folic Acid -) 1 mg PO DAILY [facility] Last Admin: 06/21/20 10:04 Dose: 1 mg Documented by: Furosemide (Lasix -) 40 mg PO DAILY [facility] Last Admin: 06/21/20 10:04 Dose: 40 mg Documented by: Ceftriaxone Sodium 1 gm/ (Dextrose) 50 mls @ 100 mls/hr IVPB DAILY [facility]; Protocol Last Admin: 06/21/20 13:32 Dose: 100 mls/hr Documented by: Azithromycin (Zithromax 500mg Ivpb (Pre-Docked)) 500 mg in 250 mls @ 250 mls/hr IVPB DAILY [facility] Last Admin: 06/21/20 10:07 Dose: 250 mls/hr Documented by: Insulin Aspart (Novolog Vial Sliding Scale -) 1 vial SQ ACHS [facility]; Protocol Last Admin: 06/22/20 06:12 Dose: Not Given Documented by: Multivitamins/Minerals/Vitamin C (Tab-A-Vit -) 1 tab PO DAILY [facility] Last Admin: 06/21/20 10:07 Dose: 1 tab Documented by: Valsartan (Diovan -) 40 mg PO DAILY [facility] Last Admin: 06/21/20 10:03 Dose: 40 mg Documented by: - Objective Vital Signs: Vital Signs Temperature 98.1 F 06/22/20 06:00 Pulse Rate 81 06/22/20 06:00 Respiratory Rate 18 06/22/20 06:00 Blood Pressure 150/62 06/22/20 06:00 O2 Sat by Pulse Oximetry (%) 99 06/22/20 06:00 Constitutional: Yes: Well Nourished, Calm Eyes: Yes: WNL HENT: Yes: WNL Neck: Yes: WNL Cardiovascular: Yes: Regular Rate and Rhythm, S1, S2 Respiratory: Yes: Diminished Gastrointestinal: Yes: Normal Bowel Sounds, Soft Extremities: Yes: WNL Edema: No Labs: CBC, BMP 06/19/20 07:45 06/19/20 07:45 INR, PTT INR 1.18 (0.83-1.09) H 06/17/20 22:21 Assessment/Plan Problems (1) Dyspnea Code(s): R06.00 - DYSPNEA, UNSPECIFIED (2) Sarcoidosis of lung Code(s): D86.0 - SARCOIDOSIS OF LUNG (3) Pneumonia Code(s): J18.9 - PNEUMONIA, UNSPECIFIED ORGANISM (4) CAD (coronary artery disease) Code(s): I25.10 - ATHSCL HEART DISEASE OF [place] CORONARY ARTERY W/O ANG PCTRS Qualifiers: Coronary Disease-Associated Artery/Lesion type: [place] artery [place] vs. transplanted heart: [place] heart Associated angina: without angina Qualified Code(s): I25.10 - Atherosclerotic heart disease of [place] coronary artery without angina pectoris (5) CKD (chronic kidney disease) Code(s): N18.9 - CHRONIC KIDNEY DISEASE, UNSPECIFIED (6) Diabetes Code(s): E11.9 - TYPE 2 DIABETES MELLITUS WITHOUT COMPLICATIONS Qualifiers: Diabetes mellitus type: type 2 Diabetes mellitus long term care phlebotomist insulin use: without long term care phlebotomist use Diabetes mellitus complication status: without complication Qualified Code(s): E11.9 - Type 2 diabetes mellitus without complications (7) HTN (hypertension) Code(s): I10 - ESSENTIAL (PRIMARY) HYPERTENSION Qualifiers: Hypertension type: essential hypertension Qualified Code(s): I10 - Essent ial (primary) hypertension (8) Hyperlipidemia Code(s): E78.5 - HYPERLIPIDEMIA, UNSPECIFIED Qualifiers: Hyperlipidemia type: pure hypercholesterolemia Qualified Code(s): E78.00 - Pure hypercholesterolemia, unspecified Assessment/Plan ABX No smoking VTE prophylaxis Outpatient PFTs Followup of LLL 5mm Pulmonary nodule as an outpatient DR GRISSOM
[2020-06-22] MEDS ORDERED: CARVEDILOL PHOSPHATE CR 40 MG CAPSULE (FP) PO SCH (10:00)
--- NOTE | 2020-06-22 11:15 | DS ---
Physical Examination Vital Signs: Vital Signs Temperature 98 F 06/22/20 09:15 Pulse Rate 76 06/22/20 09:15 Respiratory Rate 18 06/22/20 09:15 Blood Pressure 150/62 06/22/20 09:15 O2 Sat by Pulse Oximetry (%) 96 06/22/20 09:15 Findings/Remarks: Ms. Murphy is an 79 y/o F with hx of CAD s/p 2 stents, sarcoidosis, HTN, DL, presented with 1 day of having fevers and productive cough. She reports that throughout the day she had been experiencing body aches and a productive cough of yellow/brownish colored sputum. The patient reports that she had called her physician who had prescribed her cefidinir 300 mg and had taken one dose today. She had also taken tylenol at home which had temporarily reduced her fever. She also endorses a sore throat without chest pain, chest tightness, headache, dizziness, lightheadedness, diarrhea, constipation or any symptoms. (1) Pneumonia Assessment/Plan: -Pulmonary consult -COVID 19 PCR negative -ID consult -Finished Azithromycin + Rocephin -Nasal O2 PRN to keep SpO2>90% -CT Chest:Compared to prior chest x-ray dated 06/17/[address] scan of the chest dated 05/18/2010 sutures and pleural thickening again noted in the right lower lobe, laterally with mild adjacent atelectatic changes versus scarring t hat has slightly increased since the prior exam. No groundglass opacities/infiltrates are identified. Previously visualized approximately 5 mm nodule in the left lung base, laterally is again seen without interval change. Problems reviewed: Yes Code(s): J18.9 - PNEUMONIA, UNSPECIFIED ORGANISM (2) CAD (coronary artery disease) Assessment/Plan: -Continue Plavix+ Statin + ASA Problems reviewed: Yes Code(s): I25.10 - ATHSCL HEART DISEASE OF [place] CORONARY ARTERY W/O ANG PCTRS Qualifiers: Coronary Disease-Associated Artery/Lesion type: [place] artery [place] vs. transplanted heart: [place] heart Associated angina: without angina Qualified Code(s): I25.10 - Atherosclerotic heart disease of [place] coronary artery without angina pectoris (3) Diabetes Assessment/Plan: -A1c at 7.0 -BGM AC HS -Diabetic low sodium diet -ISS Problems reviewed: Yes Code(s): E11.9 - TYPE 2 DIABETES MELLITUS WITHOUT COMPLICATIONS Qualifiers: Diabetes mellitus type: type 2 Diabetes mellitus custodial insulin use: without custodial use Diabetes mellitus complication status: without complication Qualified Code(s): E11.9 - Type 2 diabetes mellitus without complications (4) HTN (hypertension) Assessment/Plan: -Gradually start home meds -Restart home meds Problems reviewed: Yes Code(s): I10 - ESSENTIAL (PRIMARY) HYPERTENSION Qualifiers: Hypertension type: essential hypertension Qualified Code(s): I10 - Essential (primary) hypertension Assessment/Plan See problem list Constitutional: Yes: Well Nourished, No Distress, Calm Cardiovascular: Yes: Regular Rate and Rhythm Respiratory: Yes: Regular, CTA Bilaterally Gastrointestinal: Yes: Normal Bowel Sounds, Soft Renal/: Yes: WNL Musculoskeletal: Yes: WNL Extremities: Yes: WNL Edema: No Peripheral Pulses WNL: Yes Neurological: Yes: Alert, Oriented Psychiatric: Yes: Alert, Oriented Labs: CBC, BMP 06/19/20 07:45 06/19/20 07:45 Discharge Summary Problems reviewed: Yes Reason For Visit: PNEUMONIA Current Active Problems Cough (Acute) Dyspnea (Acute) Fever (Acute) Penicillin allergy (Acute) Pneumonia (Acute) Sarcoidosis of lung (Acute) Condition: Stable - Instructions Referrals: Bridgette Farias MD [Primary Care Provider] - Disposition: HOME - Home Medications Comprehensive Discharge Medication List: Ambulatory Orders Albuterol Sulfate [Proair Hfa] 8.5 gm IH Q4HWA PRN 06/18/20 Allopurinol [Zyloprim -] 100 mg PO DAILY 06/18/20 Amlodipine Bes/Olmesartan Med [Margarita 10-40 mg Tablet] 1 each PO DAILY 06/18/20 Aspirin 81 mg PO DAILY 06/18/20 Carvedilol Phosphate [Coreg Cr -] 80 mg PO DAILY 06/18/20 Cholecalciferol (Vitamin D3) [Vitamin D3 -] 1,000 unit PO DAILY 06/18/20 Clopidogrel Bisulfate [Plavix] 75 mg PO DAILY 06/18/20 Dexlansoprazole [Dexilant] 60 mg PO DAILY 06/18/20 Ezetimibe [Zetia -] 10 mg PO DAILY 06/18/20 Folic Acid 1 mg PO DAILY 06/18/20 Furosemide [Lasix] 40 mg PO DAILY 06/18/20 Icosapent Ethyl [Vascepa] 2 gm PO BID 06/18/20 Insulin Detemir [Levemir Flextouch] 06/18/20 Insulin Glargine,Hum.rec.anlog [Basaglar Kwikpen U-100] 50 unit SQ DAILY 06/18/20 Multivitamin [Multiple Vitamins] 1 each PO DAILY 06/18/20 Pitavastatin Calcium [Livalo] 4 mg PO DAILY 06/18/20 Plecanatide [Trulance] 3 mg PO DAILY 06/18/20 Vitamin B Complex 1 each PO DAILY 06/18/20 hydrALAZINE HCL [Apresoline -] 50 mg PO TID 06/18/20 Prescription Drug Monitoring Program (I-STOP) results: I-STOP reviewed and no issues identified
[2020-06-22] MEDS ORDERED: cefTRIAXone SODIUM 1 GM VIAL ONE (11:17)
[2020-06-22] MEDS ORDERED: DEXTROSE 5%-WATER - 50 ML IVPB ONE (11:17)
[2020-06-22] MEDS: CLOPIDOGREL BISULFATE 75 MG TABLET (FP) PO SCH (11:22)
[2020-06-22] MEDS: amLODIPine BESYLATE 5 MG TABLET (FP) PO SCH (11:22)
[2020-06-22] MEDS: ASPIRIN 81 MG CHEWABLE TABLETS PO SCH (11:22)
[2020-06-22] MEDS: MULTIVITAMINS (DAILY MVI) TABLET (FP) PO SCH (11:22)
[2020-06-22] MEDS: EZETIMIBE 10 MG TABLET (FP) PO SCH (11:22)
[2020-06-22] MEDS: FUROSEMIDE 40 MG TABLET (FP) PO SCH (11:23)
[2020-06-22] MEDS: CEFTRIAXONE 1 GM in DEXTROSE 5%-WATER - 50 ML IVPB SCH (11:24)
[2020-06-22] MEDS: ALLOPURINOL 100 MG TABLET (FP) PO SCH (11:25)
[2020-06-22] MEDS: CHOLECALCIFEROL (VIT D3) 1,000 UNIT (25 MCG) TABLET PO SCH (11:25)
[2020-06-22] MEDS: ENOXAPARIN NA (PORCINE) 40 MG/0.4 ML DISP.SYRIN SQ SCH (11:31)
[2020-06-22] MEDS: VALSARTAN 40 MG TABLET PO SCH (11:35)
[2020-06-22] MEDS: FOLIC ACID 1 MG TABLET (FP) PO SCH (11:37)
[2020-06-22] MEDS: AZITHROMYCIN IVPB 500 MG/250 ML BAG IVPB SCH (13:02)
[2020-06-22 15:35] VITALS: BP 149/65; PULSE 75; TEMP 99.1
== END 2020-06-22 16:56 | disposition home or self-care (01) | DRG 194 ==
LOC: JER 21:08 → JERBED 06-18 00:52 → J5S 06-18 23:17
PROVIDERS: ADMIT Internal Medicine; ATTEND Family Medicine
DX: J18.9 Pneumonia, unspecified organism (principal); J98.11 Atelectasis; E11.9 Type 2 diabetes mellitus without complications; E78.5 Hyperlipidemia, unspecified; I25.10 Atherosclerotic heart disease of native coronary artery without angina pectoris; D86.0 Sarcoidosis of lung; B19.20 Unspecified viral hepatitis C without hepatic coma; D72.829 Elevated white blood cell count, unspecified; N18.9 Chronic kidney disease, unspecified; E66.9 Obesity, unspecified; Z95.5 Presence of coronary angioplasty implant and graft; Z88.0 Allergy status to penicillin; Z68.36 Body mass index [BMI] 36.0-36.9, adult; I12.9 Hypertensive chronic kidney disease with stage 1 through stage 4 chronic kidney disease, or unspecified chronic kidney disease
CPT/HCPCS: 36415; 71046-TC-FY; 71250-TC; 80053; 81003; 82550; 82728; 82962; 83036; 83615; 83735; 84100; 84484; 85025; 85379; 85610; 86140; 87040; 87070; 87205; 87804; 87899; 93005; 93010; 94761; 97116-GP; 97161-GP; 99285-25; C9803; J0131; U0003

== ENCOUNTER 2020-12-26 08:55 | Emergency (ER) | payer OTHER ==
[2020-12-26 09:04] VITALS: BP 155/65; PULSE 84; TEMP 98; BMI 34.0
[2020-12-26] MEDS ORDERED: ACETAMINOPHEN 500 MG TABLET (FP) PO ONE (09:48)
[2020-12-26] MEDS ORDERED: ACETAMINOPHEN 325 MG TABLET (FP) ONE (09:51)
[2020-12-26] MEDS ORDERED: ACETAMINOPHEN 500 MG TABLET (FP) ONE (09:52)
== END 2020-12-26 10:32 | disposition home or self-care (01) ==
LOC: JER 08:55
DX: R10.814 Left lower quadrant abdominal tenderness (principal)
CPT/HCPCS: 72170-TC-FY; 73502-TC-LT-FY; 99284-25

== ENCOUNTER 2023-06-21 11:26 | Inpatient (IN) | payer OTHER ==
[2023-06-21] MEDS ORDERED: ACETAMINOPHEN 500 MG TABLET (FP) PO ONE (12:21)
[2023-06-21] MEDS ORDERED: ACETAMINOPHEN 500 MG TABLET (FP) ONE (12:48)
[2023-06-21] MEDS ORDERED: morphine CARPU-JECT 2 MG/1 ML DISP.SYRIN IVPUSH ONE (13:03)
[2023-06-21 14:46] LABS: EOS % 0.8 % (0-4.5); HEMATOCRIT 35.1 % (32.4-45.2); HEMOGLOBIN 11.2 GM/dL (10.7-15.3); LYMPH % 20.1 % (8-40); MEAN CELL VOLUME 81.1 fl (80-96); MEAN PLT VOLUME 7.5 fl (7.5-11.1); MONO % 6.4 % (3.8-10.2); NEUT % 71.7 % (42.8-82.8); PLATELET COUNT 245 10^3/uL (134-434); RBC 4.33 M/mm3 (3.60-5.2); RDW 13.6 % (11.6-15.6); WHITE BLOOD COUNT 9.6 K/mm3 (4.0-10.0)
[2023-06-21 14:55] LABS: INR 1.05 (0.83-1.09); PROTHROMBIN TIME (PATIENT) 12.2 SEC (9.7-13.0)
[2023-06-21 14:58] LABS: ACTIVATED PTT 30.1 SECONDS (25.2-36.5)
[2023-06-21] MEDS ORDERED: ALBUTEROL SO4 0.083% IH SOL 2.5 MG/3 ML VIAL.NEB. NEB PRN (15:09)
[2023-06-21 15:17] LABS: ALBUMIN 3.8 g/dl (3.4-5.0); BLOOD UREA NITROGEN 34.9 mg/dL (7-18); CALCIUM 9.4 mg/dL (8.5-10.1)
[2023-06-21 15:21] LABS: BILIRUBIN,TOTAL 0.3 mg/dL (0.2-1); CREATININE 1.3 mg/dL (0.55-1.3); TOT PROT 7.8 g/dl (6.4-8.2)
[2023-06-21] MEDS ORDERED: ALBUTEROL SO4 HFA INHALER IH PRN (16:16)
[2023-06-21] MEDS: INSULIN SLIDING SCALE (NOVOLOG) 1 VIAL SQ SCH ×2 (17:16→22:07)
[2023-06-21] MEDS ORDERED: ALBUTEROL SO4 2 MG TABLET PO SCH (18:00)
[2023-06-21] MEDS: ACETAMINOPHEN 325 MG TABLET (FP) PO PRN (21:58)
[2023-06-21] MEDS: MONTELUKAST NA 10 MG TABLET PO SCH (22:00)
[2023-06-21] MEDS: hydrALAZINE HCL 25 MG TABLET (FP) PO SCH (22:00)
[2023-06-21] MEDS: HEPARIN NA (PORCINE) 5,000 UNITS/ML 1ML VIAL SQ SCH (22:00)
[2023-06-21] MEDS: INSULIN (LEVEMIR) 100 UNITS/ML UNITS SQ SCH (22:07)
[2023-06-22] MEDS: ACETAMINOPHEN 325 MG TABLET (FP) PO PRN ×2 (04:32→10:30)
[2023-06-22] MEDS: hydrALAZINE HCL 25 MG TABLET (FP) PO SCH ×3 (06:15→21:12)
[2023-06-22] MEDS: INSULIN SLIDING SCALE (NOVOLOG) 1 VIAL SQ SCH ×4 (06:56→21:18)
[2023-06-22] MEDS: INSULIN (LEVEMIR) 100 UNITS/ML UNITS SQ SCH ×3 (06:56→23:31)
[2023-06-22 09:10] LABS: HEMATOCRIT 34.3 % (32.4-45.2); HEMOGLOBIN 10.8 GM/dL (10.7-15.3); MCH 25.5 pg (25.7-33.7); MCHC 31.6 g/dl (32.0-36.0); MEAN CELL VOLUME 80.7 fl (80-96); MEAN PLT VOLUME 7.4 fl (7.5-11.1); PLATELET COUNT 254 10^3/uL (134-434); RBC 4.24 M/mm3 (3.60-5.2); RDW 13.9 % (11.6-15.6); WHITE BLOOD COUNT 7.9 K/mm3 (4.0-10.0)
[2023-06-22] MEDS: FUROSEMIDE 40 MG TABLET (FP) PO SCH (09:14)
[2023-06-22] MEDS: HEPARIN NA (PORCINE) 5,000 UNITS/ML 1ML VIAL SQ SCH ×2 (09:14→21:12)
[2023-06-22] MEDS: PANTOPRAZOLE 40 MG TABLET PO SCH (09:14)
[2023-06-22] MEDS: LOSARTAN POTASSIUM 50 MG TABLET PO SCH (09:14)
[2023-06-22] MEDS: amLODIPine BESYLATE 10 MG TABLET (FP) PO SCH (09:14)
[2023-06-22] MEDS: CARVEDILOL PHOSPHATE CR 40 MG CAPSULE (FP) PO SCH (09:17)
[2023-06-22 09:30] LABS: POTASSIUM 4.4 mmol/L (3.5-5.1)
[2023-06-22 09:33] LABS: BLOOD UREA NITROGEN 29.3 mg/dL (7-18); CALCIUM 8.7 mg/dL (8.5-10.1)
[2023-06-22 09:35] LABS: ALBUMIN 3.3 g/dl (3.4-5.0)
[2023-06-22 09:37] LABS: BILIRUBIN,TOTAL 0.5 mg/dL (0.2-1); CREATININE 1.1 mg/dL (0.55-1.3)
[2023-06-22 09:39] LABS: TOT PROT 7.3 g/dl (6.4-8.2)
[2023-06-22] MEDS ORDERED: ACETAMINOPHEN 1000 MG/100 ML BAG IVPB PRN (13:52)
[2023-06-22] MEDS ORDERED: INSULIN (NOVOLOG) ASPART 100 UNITS/ML 10ML VIAL ONE (21:02)
[2023-06-22] MEDS: MONTELUKAST NA 10 MG TABLET PO SCH (21:12)
[2023-06-23] MEDS: ACETAMINOPHEN 325 MG TABLET (FP) PO PRN ×2 (02:20→21:32)
[2023-06-23] MEDS: INSULIN SLIDING SCALE (NOVOLOG) 1 VIAL SQ SCH ×4 (06:28→21:35)
[2023-06-23] MEDS: INSULIN (LEVEMIR) 100 UNITS/ML UNITS SQ SCH ×2 (06:28→21:34)
[2023-06-23] MEDS: hydrALAZINE HCL 25 MG TABLET (FP) PO SCH ×3 (06:29→21:33)
[2023-06-23] MEDS: PANTOPRAZOLE 40 MG TABLET PO SCH (09:23)
[2023-06-23] MEDS: FUROSEMIDE 40 MG TABLET (FP) PO SCH (09:23)
[2023-06-23] MEDS: amLODIPine BESYLATE 10 MG TABLET (FP) PO SCH (09:23)
[2023-06-23] MEDS: CARVEDILOL PHOSPHATE CR 40 MG CAPSULE (FP) PO SCH (09:24)
[2023-06-23] MEDS: LOSARTAN POTASSIUM 50 MG TABLET PO SCH (09:24)
[2023-06-23] MEDS: HEPARIN NA (PORCINE) 5,000 UNITS/ML 1ML VIAL SQ SCH ×2 (09:24→21:34)
[2023-06-23] MEDS ORDERED: INSULIN (NOVOLOG) ASPART 100 UNITS/ML 10ML VIAL ONE (11:44)
[2023-06-23] MEDS ORDERED: BENZOCAINE/MENTH/CETYLPYRD CL 1 EACH LOZENGE MM PRN (14:05)
[2023-06-23 16:38] LABS: BASO % 1.1 % (0-2.0); HEMATOCRIT 31.7 % (32.4-45.2); HEMOGLOBIN 10.5 GM/dL (10.7-15.3); LYMPH % 28.8 % (8-40); MCH 26.2 pg (25.7-33.7); MCHC 33.2 g/dl (32.0-36.0); MEAN CELL VOLUME 78.9 fl (80-96); MEAN PLT VOLUME 7.9 fl (7.5-11.1); MONO % 11.6 % (3.8-10.2); NEUT % 57.5 % (42.8-82.8); PLATELET COUNT 246 10^3/uL (134-434); RBC 4.02 M/mm3 (3.60-5.2); RDW 13.9 % (11.6-15.6); WHITE BLOOD COUNT 7.1 K/mm3 (4.0-10.0)
[2023-06-23 16:52] LABS: POTASSIUM 4.4 mmol/L (3.5-5.1)
[2023-06-23 16:55] LABS: CALCIUM 8.5 mg/dL (8.5-10.1)
[2023-06-23 16:56] LABS: ALBUMIN 3.3 g/dl (3.4-5.0); BLOOD UREA NITROGEN 31.4 mg/dL (7-18)
[2023-06-23 16:58] LABS: CREATININE 1.4 mg/dL (0.55-1.3)
[2023-06-23 17:01] LABS: BILIRUBIN,TOTAL 0.4 mg/dL (0.2-1); TOT PROT 7.1 g/dl (6.4-8.2)
[2023-06-23] MEDS: MONTELUKAST NA 10 MG TABLET PO SCH (21:34)
[2023-06-23] MEDS: MELATONIN 5 MG TABLETS PO PRN (22:51)
[2023-06-24] MEDS: ACETAMINOPHEN 325 MG TABLET (FP) PO PRN ×2 (02:45→11:17)
[2023-06-24] MEDS: hydrALAZINE HCL 25 MG TABLET (FP) PO SCH ×3 (06:11→22:28)
[2023-06-24] MEDS: INSULIN (LEVEMIR) 100 UNITS/ML UNITS SQ SCH ×2 (06:13→22:30)
[2023-06-24] MEDS: INSULIN SLIDING SCALE (NOVOLOG) 1 VIAL SQ SCH ×4 (06:14→22:31)
[2023-06-24 09:40] LABS: POTASSIUM 4.5 mmol/L (3.5-5.1)
[2023-06-24 09:45] LABS: BLOOD UREA NITROGEN 35.2 mg/dL (7-18)
[2023-06-24 09:47] LABS: ALBUMIN 3.2 g/dl (3.4-5.0); CALCIUM 8.6 mg/dL (8.5-10.1)
[2023-06-24 09:50] LABS: CREATININE 1.2 mg/dL (0.55-1.3)
[2023-06-24 09:51] LABS: BILIRUBIN,TOTAL 0.5 mg/dL (0.2-1); TOT PROT 7.3 g/dl (6.4-8.2)
[2023-06-24] MEDS: PANTOPRAZOLE 40 MG TABLET PO SCH (09:58)
[2023-06-24] MEDS: LOSARTAN POTASSIUM 50 MG TABLET PO SCH (09:58)
[2023-06-24] MEDS: HEPARIN NA (PORCINE) 5,000 UNITS/ML 1ML VIAL SQ SCH ×2 (09:58→22:28)
[2023-06-24] MEDS: FUROSEMIDE 40 MG TABLET (FP) PO SCH (09:58)
[2023-06-24] MEDS: amLODIPine BESYLATE 10 MG TABLET (FP) PO SCH (09:58)
[2023-06-24] MEDS: CARVEDILOL PHOSPHATE CR 40 MG CAPSULE (FP) PO SCH (09:59)
[2023-06-24] MEDS ORDERED: INSULIN (NOVOLOG) ASPART 100 UNITS/ML 10ML VIAL ONE ×2 (11:13→22:26)
[2023-06-24] MEDS ORDERED: oxyCODONE HCL 5 MG TABLET PO PRN ×2 (13:48→13:53)
[2023-06-24] MEDS: ACETAMINOPHEN 1000 MG/100 ML BAG IVPB PRN (17:02)
[2023-06-24] MEDS: MONTELUKAST NA 10 MG TABLET PO SCH (22:28)
[2023-06-25] MEDS: ACETAMINOPHEN 1000 MG/100 ML BAG IVPB PRN ×2 (05:50→11:15)
[2023-06-25] MEDS: hydrALAZINE HCL 25 MG TABLET (FP) PO SCH ×3 (05:51→21:27)
[2023-06-25] MEDS: INSULIN (LEVEMIR) 100 UNITS/ML UNITS SQ SCH ×2 (06:58→21:36)
[2023-06-25] MEDS: INSULIN SLIDING SCALE (NOVOLOG) 1 VIAL SQ SCH ×4 (06:58→21:37)
[2023-06-25 09:41] LABS: BASO % 0.8 % (0-2.0); EOS % 1.9 % (0-4.5); HEMOGLOBIN 10.2 GM/dL (10.7-15.3); LYMPH % 22.8 % (8-40); MCH 25.8 pg (25.7-33.7); MCHC 31.8 g/dl (32.0-36.0); MEAN PLT VOLUME 7.7 fl (7.5-11.1); MONO % 8.3 % (3.8-10.2); NEUT % 66.2 % (42.8-82.8); PLATELET COUNT 281 10^3/uL (134-434); RBC 3.95 M/mm3 (3.60-5.2); RDW 13.3 % (11.6-15.6); WHITE BLOOD COUNT 6.9 K/mm3 (4.0-10.0)
[2023-06-25 10:02] LABS: POTASSIUM 4.6 mmol/L (3.5-5.1)
[2023-06-25 10:12] LABS: CALCIUM 8.7 mg/dL (8.5-10.1)
[2023-06-25 10:13] LABS: BLOOD UREA NITROGEN 38.3 mg/dL (7-18)
[2023-06-25 10:16] LABS: CREATININE 1.3 mg/dL (0.55-1.3)
[2023-06-25] MEDS: PANTOPRAZOLE 40 MG TABLET PO SCH (10:41)
[2023-06-25] MEDS: CARVEDILOL PHOSPHATE CR 40 MG CAPSULE (FP) PO SCH (10:41)
[2023-06-25] MEDS: FUROSEMIDE 40 MG TABLET (FP) PO SCH (10:41)
[2023-06-25] MEDS: HEPARIN NA (PORCINE) 5,000 UNITS/ML 1ML VIAL SQ SCH ×2 (10:42→21:27)
[2023-06-25] MEDS: amLODIPine BESYLATE 10 MG TABLET (FP) PO SCH (10:42)
[2023-06-25] MEDS ORDERED: INSULIN (NOVOLOG) ASPART 100 UNITS/ML 10ML VIAL ONE (11:21)
[2023-06-25] MEDS: LOSARTAN POTASSIUM 50 MG TABLET PO SCH (12:00)
[2023-06-25] MEDS ORDERED: IRON SUCROSE INJECTION 200 MG in SODIUM CHLORIDE 90 ML IVPB ONE (14:00)
[2023-06-25] MEDS: MELATONIN 5 MG TABLETS PO PRN (21:27)
[2023-06-25] MEDS: MONTELUKAST NA 10 MG TABLET PO SCH (21:27)
[2023-06-26] MEDS: hydrALAZINE HCL 25 MG TABLET (FP) PO SCH ×4 (06:55→22:09)
[2023-06-26] MEDS: INSULIN (LEVEMIR) 100 UNITS/ML UNITS SQ SCH ×2 (06:55→22:10)
[2023-06-26] MEDS: INSULIN SLIDING SCALE (NOVOLOG) 1 VIAL SQ SCH ×4 (07:02→21:54)
[2023-06-26] MEDS: amLODIPine BESYLATE 10 MG TABLET (FP) PO SCH (09:16)
[2023-06-26] MEDS: LOSARTAN POTASSIUM 50 MG TABLET PO SCH (09:16)
[2023-06-26] MEDS: PANTOPRAZOLE 40 MG TABLET PO SCH (09:16)
[2023-06-26] MEDS: ACETAMINOPHEN 325 MG TABLET (FP) PO PRN (09:17)
[2023-06-26] MEDS: FUROSEMIDE 40 MG TABLET (FP) PO SCH (09:17)
[2023-06-26] MEDS: HEPARIN NA (PORCINE) 5,000 UNITS/ML 1ML VIAL SQ SCH ×2 (09:17→22:09)
[2023-06-26] MEDS: CARVEDILOL PHOSPHATE CR 40 MG CAPSULE (FP) PO SCH (09:18)
[2023-06-26] MEDS ORDERED: oxyCODONE HCL 5 MG TABLET PO PRN (14:10)
[2023-06-26] MEDS ORDERED: INSULIN (NOVOLOG) ASPART 100 UNITS/ML 10ML VIAL ONE ×2 (17:05→21:44)
[2023-06-26] MEDS: MELATONIN 5 MG TABLETS PO PRN (22:09)
[2023-06-26] MEDS: MONTELUKAST NA 10 MG TABLET PO SCH (22:09)
[2023-06-26] MEDS: ACETAMINOPHEN 1000 MG/100 ML BAG IVPB PRN (22:09)
[2023-06-27] MEDS: INSULIN SLIDING SCALE (NOVOLOG) 1 VIAL SQ SCH ×4 (06:29→21:23)
[2023-06-27] MEDS: hydrALAZINE HCL 25 MG TABLET (FP) PO SCH ×3 (06:33→21:21)
[2023-06-27] MEDS: INSULIN (LEVEMIR) 100 UNITS/ML UNITS SQ SCH ×2 (08:02→21:22)
[2023-06-27] MEDS: PANTOPRAZOLE 40 MG TABLET PO SCH (09:19)
[2023-06-27] MEDS: LOSARTAN POTASSIUM 50 MG TABLET PO SCH (09:19)
[2023-06-27] MEDS: FUROSEMIDE 40 MG TABLET (FP) PO SCH (09:19)
[2023-06-27] MEDS: amLODIPine BESYLATE 10 MG TABLET (FP) PO SCH (09:19)
[2023-06-27] MEDS: CARVEDILOL PHOSPHATE CR 40 MG CAPSULE (FP) PO SCH (09:22)
[2023-06-27] MEDS: HEPARIN NA (PORCINE) 5,000 UNITS/ML 1ML VIAL SQ SCH ×2 (09:22→21:21)
[2023-06-27] MEDS ORDERED: AZTREONAM 1 GM in DEXTROSE 5%-WATER - 50 ML IVPB SCH (13:00)
[2023-06-27] MEDS: AZTREONAM 1 GM in DEXTROSE 5%-WATER - 50 ML IVPB SCH ×2 (15:15→19:11)
[2023-06-27] MEDS: MONTELUKAST NA 10 MG TABLET PO SCH (21:23)
[2023-06-27] MEDS ORDERED: INSULIN (LEVEMIR) 100 UNITS/ML UNITS SQ ONE (21:58)
[2023-06-28] MEDS: AZTREONAM 1 GM in DEXTROSE 5%-WATER - 50 ML IVPB SCH ×3 (02:49→17:30)
[2023-06-28] MEDS: INSULIN SLIDING SCALE (NOVOLOG) 1 VIAL SQ SCH ×4 (06:17→22:40)
[2023-06-28] MEDS: INSULIN (LEVEMIR) 100 UNITS/ML UNITS SQ SCH ×2 (06:20→22:26)
[2023-06-28] MEDS: hydrALAZINE HCL 25 MG TABLET (FP) PO SCH ×4 (06:20→22:25)
[2023-06-28] MEDS: HEPARIN NA (PORCINE) 5,000 UNITS/ML 1ML VIAL SQ SCH (09:21)
[2023-06-28] MEDS: PANTOPRAZOLE 40 MG TABLET PO SCH (09:22)
[2023-06-28] MEDS: FUROSEMIDE 40 MG TABLET (FP) PO SCH (09:22)
[2023-06-28] MEDS: CARVEDILOL PHOSPHATE CR 40 MG CAPSULE (FP) PO SCH (09:35)
[2023-06-28] MEDS: amLODIPine BESYLATE 10 MG TABLET (FP) PO SCH (09:35)
[2023-06-28] MEDS: LOSARTAN POTASSIUM 50 MG TABLET PO SCH (09:35)
[2023-06-28] MEDS ORDERED: MIDAZOLAM HCL 2 MG/2 ML SINGLE DOSE VIAL ONE ×2 (15:24→17:20)
[2023-06-28] MEDS ORDERED: ROPIVACAINE HCL 0.5% 30ML VIAL ONE (15:33)
[2023-06-28] MEDS ORDERED: DEXAMETHASONE SOD PHOSPHATE 10 MG/1 ML VIAL ONE (15:33)
[2023-06-28] MEDS ORDERED: BUPIVACAINE HCL/PF 0.5% (5MG/ML) 10 ML VIAL ONE (16:39)
[2023-06-28] MEDS ORDERED: AZTREONAM 1 GM VIAL (RESTRICTED TO ID) IVPB ONE (17:00)
[2023-06-28] MEDS ORDERED: PROPOFOL 20 ML ONE ×2 (17:01→18:41)
[2023-06-28] MEDS ORDERED: DOXYCYCLINE HYCLATE 100 MG CAPSULE PO SCH (18:00)
[2023-06-28] MEDS ORDERED: FENTANYL CITRATE/PF 50 MCG/ML VIAL ONE ×3 (19:35→21:07)
[2023-06-28] MEDS ORDERED: ACETAMINOPHEN 1000 MG/100 ML BAG IVPB ONE (20:38)
[2023-06-28] MEDS ORDERED: BENZOCAINE/MENTH/CETYLPYRD CL 1 EACH LOZENGE MM PRN (20:42)
[2023-06-28] MEDS ORDERED: ALBUTEROL SO4 0.083% IH SOL 2.5 MG/3 ML VIAL.NEB. NEB PRN (20:42)
[2023-06-28] MEDS ORDERED: ALBUTEROL SO4 HFA INHALER IH PRN (20:42)
[2023-06-28] MEDS ORDERED: LACTATED RINGERS SOLUTION 1,000 ML IV SCH (20:45)
[2023-06-28] MEDS ORDERED: ACETAMINOPHEN INJECTION 100 ML IVPB ONE (20:45)
[2023-06-28] MEDS: ACETAMINOPHEN 1000 MG/100 ML BAG IVPB PRN (20:46)
[2023-06-28] MEDS ORDERED: PROPOFOL 40 ML ONE (20:47)
[2023-06-28] MEDS: MONTELUKAST NA 10 MG TABLET PO SCH (22:25)
[2023-06-29] MEDS: AZTREONAM 1 GM in DEXTROSE 5%-WATER - 50 ML IVPB SCH ×3 (02:14→17:33)
[2023-06-29] MEDS: hydrALAZINE HCL 25 MG TABLET (FP) PO SCH ×3 (06:09→21:42)
[2023-06-29] MEDS: INSULIN (LEVEMIR) 100 UNITS/ML UNITS SQ SCH ×2 (06:14→21:49)
[2023-06-29] MEDS: INSULIN SLIDING SCALE (NOVOLOG) 1 VIAL SQ SCH ×4 (06:15→22:04)
[2023-06-29] MEDS ORDERED: INSULIN (LEVEMIR) 100 UNITS/ML UNITS SQ ONE (06:27)
[2023-06-29] MEDS: amLODIPine BESYLATE 10 MG TABLET (FP) PO SCH (09:43)
[2023-06-29] MEDS: LOSARTAN POTASSIUM 50 MG TABLET PO SCH (09:43)
[2023-06-29] MEDS: PANTOPRAZOLE 40 MG TABLET PO SCH (09:43)
[2023-06-29] MEDS: DOXYCYCLINE HYCLATE 100 MG CAPSULE PO SCH ×2 (09:43→17:33)
[2023-06-29] MEDS: FUROSEMIDE 40 MG TABLET (FP) PO SCH (09:43)
[2023-06-29] MEDS: CHOLECALCIFEROL (VIT D3) 1,000 UNIT (25 MCG) TABLET PO SCH (09:44)
[2023-06-29] MEDS: oxyCODONE HCL 5 MG TABLET PO PRN ×2 (09:44→20:33)
[2023-06-29] MEDS: CARVEDILOL PHOSPHATE CR 40 MG CAPSULE (FP) PO SCH (09:52)
[2023-06-29 10:17] LABS: HEMATOCRIT 33.6 % (32.4-45.2); HEMOGLOBIN 10.5 GM/dL (10.7-15.3); MCH 25.4 pg (25.7-33.7); MCHC 31.1 g/dl (32.0-36.0); MEAN CELL VOLUME 81.5 fl (80-96); MEAN PLT VOLUME 7.8 fl (7.5-11.1); PLATELET COUNT 310 10^3/uL (134-434); RBC 4.13 M/mm3 (3.60-5.2); WHITE BLOOD COUNT 8.1 K/mm3 (4.0-10.0)
[2023-06-29 10:37] LABS: POTASSIUM 4.7 mmol/L (3.5-5.1)
[2023-06-29 10:41] LABS: BLOOD UREA NITROGEN 34.2 mg/dL (7-18); CALCIUM 8.7 mg/dL (8.5-10.1)
[2023-06-29 10:44] LABS: CREATININE 1.1 mg/dL (0.55-1.3)
[2023-06-29 10:45] LABS: TOT PROT 7.2 g/dl (6.4-8.2)
[2023-06-29 10:46] LABS: BILIRUBIN,TOTAL 0.3 mg/dL (0.2-1)
[2023-06-29] MEDS ORDERED: INSULIN (NOVOLOG) ASPART 100 UNITS/ML 10ML VIAL ONE (11:59)
[2023-06-29] MEDS: ENOXAPARIN NA (PORCINE) 40 MG/0.4 ML DISP.SYRIN SQ SCH (20:34)
[2023-06-29 21:31] VITALS: BMI 33.8
[2023-06-29] MEDS: MONTELUKAST NA 10 MG TABLET PO SCH (21:42)
[2023-06-29] MEDS ORDERED: ACETAMINOPHEN 1000 MG/100 ML BAG IVPB ONE (22:13)
[2023-06-30] MEDS: AZTREONAM 1 GM in DEXTROSE 5%-WATER - 50 ML IVPB SCH ×3 (02:03→17:13)
[2023-06-30] MEDS: oxyCODONE HCL 5 MG TABLET PO PRN ×2 (06:12→11:39)
[2023-06-30] MEDS: hydrALAZINE HCL 25 MG TABLET (FP) PO SCH ×3 (06:12→22:01)
[2023-06-30] MEDS: INSULIN SLIDING SCALE (NOVOLOG) 1 VIAL SQ SCH ×4 (06:21→22:08)
[2023-06-30] MEDS: INSULIN (LEVEMIR) 100 UNITS/ML UNITS SQ SCH ×2 (06:30→22:08)
[2023-06-30] MEDS: CHOLECALCIFEROL (VIT D3) 1,000 UNIT (25 MCG) TABLET PO SCH (09:26)
[2023-06-30] MEDS: LOSARTAN POTASSIUM 50 MG TABLET PO SCH (09:26)
[2023-06-30] MEDS: amLODIPine BESYLATE 10 MG TABLET (FP) PO SCH (09:26)
[2023-06-30] MEDS: FUROSEMIDE 40 MG TABLET (FP) PO SCH (09:26)
[2023-06-30] MEDS: DOXYCYCLINE HYCLATE 100 MG CAPSULE PO SCH ×2 (09:26→17:12)
[2023-06-30] MEDS: PANTOPRAZOLE 40 MG TABLET PO SCH (09:26)
[2023-06-30] MEDS: CLOPIDOGREL BISULFATE 75 MG TABLET (FP) PO SCH (09:26)
[2023-06-30] MEDS: CARVEDILOL PHOSPHATE CR 40 MG CAPSULE (FP) PO SCH (09:27)
[2023-06-30] MEDS: ENOXAPARIN NA (PORCINE) 40 MG/0.4 ML DISP.SYRIN SQ SCH (09:27)
[2023-06-30] MEDS: ACETAMINOPHEN 325 MG TABLET (FP) PO PRN (09:34)
[2023-06-30] MEDS: MELATONIN 5 MG TABLETS PO PRN (22:01)
[2023-06-30] MEDS: MONTELUKAST NA 10 MG TABLET PO SCH (22:02)
[2023-07-01] MEDS: AZTREONAM 1 GM in DEXTROSE 5%-WATER - 50 ML IVPB SCH ×2 (02:32→10:36)
[2023-07-01] MEDS: hydrALAZINE HCL 25 MG TABLET (FP) PO SCH ×3 (06:08→21:16)
[2023-07-01] MEDS: INSULIN SLIDING SCALE (NOVOLOG) 1 VIAL SQ SCH ×4 (06:21→21:28)
[2023-07-01] MEDS: INSULIN (LEVEMIR) 100 UNITS/ML UNITS SQ SCH ×2 (07:34→21:28)
[2023-07-01] MEDS: ENOXAPARIN NA (PORCINE) 40 MG/0.4 ML DISP.SYRIN SQ SCH (10:35)
[2023-07-01] MEDS: DOXYCYCLINE HYCLATE 100 MG CAPSULE PO SCH ×2 (10:36→18:28)
[2023-07-01] MEDS: CHOLECALCIFEROL (VIT D3) 1,000 UNIT (25 MCG) TABLET PO SCH (10:36)
[2023-07-01] MEDS: PANTOPRAZOLE 40 MG TABLET PO SCH (10:36)
[2023-07-01] MEDS: CLOPIDOGREL BISULFATE 75 MG TABLET (FP) PO SCH (10:36)
[2023-07-01] MEDS: LOSARTAN POTASSIUM 50 MG TABLET PO SCH (10:36)
[2023-07-01] MEDS: FUROSEMIDE 40 MG TABLET (FP) PO SCH (10:36)
[2023-07-01] MEDS: amLODIPine BESYLATE 10 MG TABLET (FP) PO SCH (10:36)
[2023-07-01] MEDS: ACETAMINOPHEN 325 MG TABLET (FP) PO PRN ×2 (10:52→21:27)
[2023-07-01] MEDS: CARVEDILOL PHOSPHATE CR 40 MG CAPSULE (FP) PO SCH (11:31)
[2023-07-01] MEDS: MONTELUKAST NA 10 MG TABLET PO SCH (21:16)
[2023-07-02 04:48] VITALS: RESP 18
[2023-07-02] MEDS ORDERED: CARVEDILOL PHOSPHATE CR 20 MG CAPSULE PO SCH (05:53)
[2023-07-02] MEDS: hydrALAZINE HCL 25 MG TABLET (FP) PO SCH ×3 (06:50→22:15)
[2023-07-02] MEDS: INSULIN SLIDING SCALE (NOVOLOG) 1 VIAL SQ SCH ×4 (06:50→22:15)
[2023-07-02] MEDS: INSULIN (LEVEMIR) 100 UNITS/ML UNITS SQ SCH ×2 (06:50→22:13)
[2023-07-02] MEDS: DOXYCYCLINE HYCLATE 100 MG CAPSULE PO SCH ×2 (09:00→17:09)
[2023-07-02] MEDS: ENOXAPARIN NA (PORCINE) 40 MG/0.4 ML DISP.SYRIN SQ SCH (09:00)
[2023-07-02] MEDS: LOSARTAN POTASSIUM 50 MG TABLET PO SCH (09:00)
[2023-07-02] MEDS: CLOPIDOGREL BISULFATE 75 MG TABLET (FP) PO SCH (09:00)
[2023-07-02] MEDS: PANTOPRAZOLE 40 MG TABLET PO SCH (09:01)
[2023-07-02] MEDS: amLODIPine BESYLATE 10 MG TABLET (FP) PO SCH (09:01)
[2023-07-02] MEDS: FUROSEMIDE 40 MG TABLET (FP) PO SCH (09:01)
[2023-07-02] MEDS: CARVEDILOL PHOSPHATE CR 40 MG CAPSULE (FP) PO SCH (09:01)
[2023-07-02] MEDS: CHOLECALCIFEROL (VIT D3) 1,000 UNIT (25 MCG) TABLET PO SCH (09:01)
[2023-07-02] MEDS: ACETAMINOPHEN 325 MG TABLET (FP) PO PRN ×2 (10:25→22:11)
[2023-07-02] MEDS: MELATONIN 5 MG TABLETS PO PRN (22:13)
[2023-07-02] MEDS: MONTELUKAST NA 10 MG TABLET PO SCH (22:13)
[2023-07-03] MEDS: hydrALAZINE HCL 25 MG TABLET (FP) PO SCH ×2 (06:10→13:08)
[2023-07-03] MEDS: INSULIN (LEVEMIR) 100 UNITS/ML UNITS SQ SCH (06:10)
[2023-07-03] MEDS: INSULIN SLIDING SCALE (NOVOLOG) 1 VIAL SQ SCH ×3 (06:14→16:42)
[2023-07-03 09:02] LABS: HEMATOCRIT 32.8 % (32.4-45.2); MCH 26.5 pg (25.7-33.7); MCHC 33.7 g/dl (32.0-36.0); MEAN CELL VOLUME 78.8 fl (80-96); MEAN PLT VOLUME 7.3 fl (7.5-11.1); PLATELET COUNT 422 10^3/uL (134-434); RBC 4.16 M/mm3 (3.60-5.2); RDW 13.7 % (11.6-15.6); WHITE BLOOD COUNT 7.1 K/mm3 (4.0-10.0)
[2023-07-03 09:04] LABS: POTASSIUM 4.1 mmol/L (3.5-5.1)
[2023-07-03 09:12] LABS: CALCIUM 9.2 mg/dL (8.5-10.1)
[2023-07-03 09:13] LABS: ALBUMIN 2.9 g/dl (3.4-5.0); BLOOD UREA NITROGEN 26.6 mg/dL (7-18); MAGNESIUM 1.8 mg/dL (1.8-2.4)
[2023-07-03 09:16] LABS: CREATININE 0.9 mg/dL (0.55-1.3)
[2023-07-03 09:18] LABS: BILIRUBIN,TOTAL 0.4 mg/dL (0.2-1); TOT PROT 7.1 g/dl (6.4-8.2)
[2023-07-03] MEDS: LOSARTAN POTASSIUM 50 MG TABLET PO SCH (09:18)
[2023-07-03] MEDS: DOXYCYCLINE HYCLATE 100 MG CAPSULE PO SCH ×2 (09:19→17:48)
[2023-07-03] MEDS: CLOPIDOGREL BISULFATE 75 MG TABLET (FP) PO SCH (09:19)
[2023-07-03] MEDS: FUROSEMIDE 40 MG TABLET (FP) PO SCH (09:19)
[2023-07-03] MEDS: ENOXAPARIN NA (PORCINE) 40 MG/0.4 ML DISP.SYRIN SQ SCH (09:19)
[2023-07-03] MEDS: amLODIPine BESYLATE 10 MG TABLET (FP) PO SCH (09:19)
[2023-07-03] MEDS: CHOLECALCIFEROL (VIT D3) 1,000 UNIT (25 MCG) TABLET PO SCH (09:19)
[2023-07-03] MEDS: PANTOPRAZOLE 40 MG TABLET PO SCH (09:19)
[2023-07-03] MEDS ORDERED: DOCUSATE SODIUM 100 MG CAPSULE (FP) PO SCH (10:00)
[2023-07-03] MEDS: CARVEDILOL PHOSPHATE CR 40 MG CAPSULE (FP) PO SCH (10:36)
[2023-07-03] MEDS: ACETAMINOPHEN 325 MG TABLET (FP) PO PRN (11:12)
[2023-07-03 14:31] VITALS: BP 145/54; PULSE 83; TEMP 98.3
[2023-07-03] MEDS ORDERED: INSULIN (NOVOLOG) ASPART 100 UNITS/ML 10ML VIAL ONE (16:44)
== END 2023-07-03 17:45 | DRG 493 ==
LOC: JER 11:26 → JERBED 13:46 → J6S 20:15
PROVIDERS: ADMIT Family Medicine; ATTEND Family Medicine
PROC: 0SSGXZZ Reposition Left Ankle Joint, External Approach (ICD-10-PCS; 2023-06-21)
PROC: 0QSH04Z Reposition Left Tibia with Internal Fixation Device, Open Approach (ICD-10-PCS; 2023-06-28)
PROC: 0QSK04Z Reposition Left Fibula with Internal Fixation Device, Open Approach (ICD-10-PCS; principal; 2023-06-28 14:30)
DX: S82.852A Displaced trimalleolar fracture of left lower leg, initial encounter for closed fracture (principal); I13.0 Hypertensive heart and chronic kidney disease with heart failure and stage 1 through stage 4 chronic kidney disease, or unspecified chronic kidney disease; I50.32 Chronic diastolic (congestive) heart failure; D86.9 Sarcoidosis, unspecified; E11.40 Type 2 diabetes mellitus with diabetic neuropathy, unspecified; I27.20 Pulmonary hypertension, unspecified; I25.119 Atherosclerotic heart disease of native coronary artery with unspecified angina pectoris; I80.8 Phlebitis and thrombophlebitis of other sites; N18.9 Chronic kidney disease, unspecified; I08.1 Rheumatic disorders of both mitral and tricuspid valves; E11.22 Type 2 diabetes mellitus with diabetic chronic kidney disease; M51.17 Intervertebral disc disorders with radiculopathy, lumbosacral region; W17.89XA Other fall from one level to another, initial encounter; Y92.238 Other place in hospital as the place of occurrence of the external cause; Z86.19 Personal history of other infectious and parasitic diseases; Z98.62 Peripheral vascular angioplasty status
CPT/HCPCS: 36415; 70450-TC; 71045-TC-FY; 72170-TC-FY; 73521-TC-FY; 73610-TC-LT-FY; 73630-TC-LT; 73700-TC-RT; 76000-TC-FY; 80048; 80053; 80061; 82550; 82728; 82962; 83036; 83540; 83550; 83735; 83880; 85025; 85027; 85610; 85730; 86850; 86900; 86901; 87635; 93005; 93010; 94010; 94760; 97116-GP; 97162-GP; 99285-25; C1713; J1100; J1644; J1756

== ENCOUNTER 2024-03-06 04:27 | Day surgery (SDC) | payer OTHER ==
[2024-03-04 09:57] VITALS: BMI 34.7
[2024-03-06] MEDS ORDERED: LIDOCAINE HCL/PF 2% SDV 5ML VIAL ONE (07:28)
[2024-03-06] MEDS ORDERED: MIDAZOLAM HCL 2 MG/2 ML SINGLE DOSE VIAL ONE (07:28)
[2024-03-06] MEDS ORDERED: PROPOFOL 20 ML ONE (07:28)
[2024-03-06] MEDS ORDERED: GENTAMICIN SO4 80 MG/2 ML VIAL ONE (07:41)
[2024-03-06] MEDS: GENTAMICIN SO4 80 MG/2 ML VIAL IVPB ONE (07:45)
[2024-03-06] MEDS ORDERED: KETOROLAC TROMETHAMINE 30 MG/1 ML VIAL ONE (07:49)
[2024-03-06] MEDS ORDERED: DEXAMETHASONE SOD PHOSPHATE 4 MG/1 ML VIAL ONE (07:49)
[2024-03-06] MEDS ORDERED: ONDANSETRON 4 MG/2 ML VIAL ONE (07:49)
[2024-03-06] MEDS ORDERED: oxyCODONE HCL 5 MG TABLET PO PRN ×2 (08:03→08:04)
[2024-03-06] MEDS ORDERED: PROMETHAZINE HCL 25 MG/1 ML VIAL IVPB PRN (08:04)
[2024-03-06] MEDS ORDERED: ONDANSETRON 4 MG/2 ML VIAL IVPUSH PRN (08:04)
[2024-03-06] MEDS ORDERED: LACTATED RINGERS SOLUTION 1,000 ML IV SCH (08:15)
[2024-03-06] MEDS: ACETAMINOPHEN 1000 MG/100 ML BAG IVPB ONE (08:24)
[2024-03-06 11:19] VITALS: RESP 20; TEMP 97.1
[2024-03-06 11:48] VITALS: BP 134/61; PULSE 92
== END 2024-03-06 11:00 | disposition home or self-care (01) ==
LOC: JASU-SURG 04:27
PROVIDERS: ATTEND Urology
PROC: 0TVC8ZZ Restriction of Bladder Neck, Via Natural or Artificial Opening Endoscopic (ICD-10-PCS; principal; 2024-03-06 07:30)
DX: N36.42 Intrinsic sphincter deficiency (ISD) (principal); N39.3 Stress incontinence (female) (male)
CPT/HCPCS: 51715; L8606; 36415; 82010; 82962; 94760; J0131

== ENCOUNTER 2025-07-02 11:18 | Emergency (ER) | payer OTHER, BC ==
[2025-07-02 11:29] VITALS: BMI 33.8
[2025-07-02 12:46] LABS: ABSOLUTE IMMATURE GRANULOCYTES 0.04 x10^3/uL (0.0-0.031); BASOPHILS # 0.06 x10^3/uL (0.01-0.08); EOSINOPHIL % 0.2 % (0.7-5.8); EOSINOPHILS # 0.01 x10^3/uL (0.04-0.36); MCHC 31.7 g/dl (32.2-35.5); MEAN CELL VOLUME 84.6 fl (79.4-94.8); MEAN PLT VOLUME 9.4 fl (9.4-12.3); MONOCYTE # 0.61 x10^3/uL (0.24-0.86); MONOCYTE % 9.2 % (4.7-12.5); RDW 14.8 % (12.5-17.0)
[2025-07-02] MEDS: ONDANSETRON 4 MG/2 ML VIAL IVPUSH ONE (12:59)
[2025-07-02 13:09] LABS: GLUCOSE,RANDOM 117.0 mg/dL (74-106)
[2025-07-02 13:10] LABS: TOT PROT 8.5 g/dl (6.4-8.2)
[2025-07-02 13:11] LABS: CO2 29.0 mmol/L (21-32)
[2025-07-02 13:11] LABS: EPI CELLS 1 /uL (0-25.1); HYALINE CASTS 0 /uL (0-3.1); URINE APPEARANCE CLEAR; URINE BACTERIA 3 /uL (0-1359); URINE BILIRUBIN NEGATIVE (NEGATIVE); URINE COLOR YELLOW; URINE GLUCOSE (UA) 2+ (NEGATIVE); URINE KETONE NEGATIVE (NEGATIVE); URINE LEUK ESTERASE TRACE (NEGATIVE); URINE NITRITE NEGATIVE (NEGATIVE); URINE PROTEIN NEGATIVE (NEGATIVE); URINE RBC 10 /uL (0-23.9); URINE UROBILINOGEN 0.2 mg/dL (0.2-1.0); URINE WBC 4 /uL (0-25.8)
[2025-07-02 13:11] LABS: BG HCT 42.0 % (32.4-45.2); VENOUS BASE EXCESS 6.3 mmol/L (-2-2); VENOUS O2 SATURATION 68.4 % (70-80); VENOUS PCO2 50.4 mmHg (38-52); VENOUS PH 7.422 (7.310-7.410)
[2025-07-02 13:12] LABS: ALK PHOS 49.0 U/L (40-150)
[2025-07-02 13:15] LABS: CREATININE 0.97 mg/dL (0.55-1.3); SGOT/AST 49.0 U/L (5-34); SGPT/ALT 22.0 U/L (0-55)
[2025-07-02 13:33] LABS: HIV INTERPRETATION NEGATIVE (NEGATIVE)
[2025-07-02] MEDS: LACTATED RINGERS SOLUTION 1000 ML INFUS.BAG IV ONE (14:05)
[2025-07-02 14:42] LABS: HCV DIAGNOSTIC IN-HOUSE W/RFLX REACTIVE (NONREACTIVE)
[2025-07-02 15:24] VITALS: BP 136/50; PULSE 86; RESP 17; TEMP 98
== END 2025-07-02 16:46 | disposition home or self-care (01) ==
LOC: JER 11:18
PROC: 3E033GC Introduction of Other Therapeutic Substance into Peripheral Vein, Percutaneous Approach (ICD-10-PCS; principal; 2025-07-02)
DX: R11.2 Nausea with vomiting, unspecified (principal); R42 Dizziness and giddiness; R05.9 Cough, unspecified
CPT/HCPCS: 36415; 71045-TC-FY; 71260-TC; 74177-TC; 80053; 81003; 82550; 82803; 83605; 83690; 83735; 83880; 84484; 85025; 86803; 87040; 87086; 87389; 87522; 87637-QW; 93005; 93010; 99285-25